=== PATIENT | female | born 1975 | race Caucasian/White ===

== ENCOUNTER 2016-06-29 15:08 | Emergency (ER) | payer OTHER ==
[~2016-06-29] VITALS: Ht 157.5 cm; Wt 95.4 kg
[2016-06-29 15:15] VITALS: TEMP 36.5; Ht 157.5 cm; Wt 95.4 kg
[2016-06-29] MEDS ORDERED: ONDANSETRON INJ 2 MG/ML 2 ML VIAL IV STA (15:35)
[2016-06-29] MEDS ORDERED: SODIUM CHLORIDE 0.9% 1000ML 1,000 ML IV STA (15:35)
[2016-06-29] MEDS ORDERED: MoRPHine SULFATE 10 MG/ML CARP/VIAL IV STA (15:35)
[2016-06-29] MEDS ORDERED: OPTIRAY 320 IV PRN (15:45)
[2016-06-29 15:53] LABS: BASO % 0.4 %; BASO ABS # 0.05 K/uL (0-0.2); COMPLETE YES; EOS % 1.5 %; HEMATOCRIT 42.3 % (37-47); IG% 0.2 %; LYMPH % 33.7 %; LYMPH ABS # 4.09 K/uL (1.2-3.4); MEAN CELL VOLUME 88.9 fL (80-100); MEAN CORPUSCULAR HEMOGLOBIN 30.5 pg (25-34); MEAN CORPUSCULAR HGB CONC 34.3 g/dl (32-36); MEAN PLATELET VOLUME 10.8 fL (7.4-10.4); MONO % 6.8 %; NEUT % 57.4 %; PLATELET COUNT 292 K/uL (130-400); RED BLOOD COUNT 4.76 M/uL (4.2-5.4); WHITE BLOOD COUNT 12.14 K/uL (4.8-10.8)
[2016-06-29 16:02] LABS: BUN/CREATININE RATIO 15.1 (10-20); CALCIUM 8.7 mg/dl (8.5-10.1); CREATININE 0.68 mg/dl (0.60-1.20); POTASSIUM 3.5 mmol/L (3.5-5.1)
[2016-06-29 16:04] LABS: ALB/GLOB RATIO 0.9 (0.9-2)
[2016-06-29] MEDS ORDERED: HYDROmorphone INJ 1 MG/ML SYR IV STA (16:30)
[2016-06-29] MEDS ORDERED: PROMETHAZINE HCL INJ 12.5 MG in SODIUM CHLORIDE 0.9% 50ML 50 ML IV STA (17:17)
[2016-06-29 18:56] LABS: URINE APPEARANCE CLOUDY (CLEAR); URINE BILIRUBIN NEG (NEG); URINE COLOR YELLOW; URINE EPITHELIAL CELL AUTO >30 /lpf (0-5); URINE NITRITE NEG (NEG); URINE SPECIFIC GRAVITY 1.021 (1.000-1.030); UROBILINOGEN NEG (NEG); ZZUR CULT IF INDIC CLEAN CATCH YES
[2016-06-29 18:57] LABS: MANUAL MICROSCOPIC REQUIRED? NO; REVIEW REQ? YES
--- NOTE | 2016-06-29 19:15 | DIAGNOSTIC IMAGING REPORT ---
ABDOMEN AND PELVIS CT WITH IV AND ORAL CONTRAST CT DOSE: 1007.82 mGy.cm HISTORY: Right lower quadrant abdominal pain and vomiting. TECHNIQUE: Multiaxial CT images of the abdomen and pelvis were performed following the use of intravenous and oral contrast. COMPARISON STUDY: Abdomen and pelvis CT 05/31/2016. FINDINGS: There are 2 subcentimeter nodules at the left lower lobe both measuring 4 mm. These demonstrate greater than 2 year stability and are considered to be benign. Patchy groundglass densities at the lung bases have improved and are likely a result of air trapping. No pneumoperitoneum. No pneumatosis. Trace pelvic free fluid is likely physiologic. Stable 1 cm hypodense lesion within the left hepatic lobe. This favors a cyst. The spleen and pancreas are unremarkable. No hydronephrosis. The left kidney enhances normally. Stable 9 mm hypodense lesion within the right kidney. This is too small to characterize. No retroperitoneal lymphadenopathy. Stable bilateral renal and nodules.. The right adrenal gland nodule measures 1.4 cm and the left adrenal gland nodule measures 1.9 cm. These demonstrate greater than 4 year stability and likely represent benign adenomas. Prior cholecystectomy. Small cystic focus at the gallbladder fossa. This measures 1.5 cm. This remains unchanged. The uterus, ovaries, and bladder are unremarkable. No bowel wall thickening or obstruction. Normal appendix. IMPRESSION: 1. No significant change compared to the prior study. 2. No bowel wall thickening or obstruction. 3. Normal appendix. 4. Prior cholecystectomy. Stable 1.5 cm cystic focus of the gallbladder fossa. This may represent a small postoperative seroma or biloma. Electronically signed by: Chapo Garsia M.D. 06/29/2016 7:13 PM Dictated Date/Time: 06/29/2016 7:02 PM
[2016-06-29 19:21] VITALS: BP 96/64; PULSE 69; O2SAT 100
[2016-06-29] MEDS ORDERED: ONDA4TAB10 SL (19:40)
--- NOTE | 2016-06-29 19:40 | EMERGENCY ROOM VISIT NOTE ---
History First contact with patient: 15:25 Chief Complaint: ABDOMINAL PAIN Stated Complaint: RIGHT SIDED BELLY PAINS Nursing Triage Summary: Pt reports "pain by my appendix" nausea, vomitting, and diarrhea. All symptoms began approx 1 week ago. Pt currently rates pain an 8/10. History of Present Illness The patient is a 40 year old female who presents to the Emergency Room with complaints of right lower quadrant abdominal pain which began one week ago. The patient reports that she has had severe abdominal pain which "doubles her over" gradually worsening over the past one week. The pain is worse with walking. She has had diarrhea since the onset of the pain. She developed vomiting yesterday. The patient is concerned because she feels the pain is in the area of her appendix. She rates the discomfort an 8.5/10. She's been taking Tylenol without relief. She denies any associated fevers/chills, urinary symptoms, vaginal discharge, hematochezia, chest pain or shortness of breath. She has a history of a prior cholecystectomy, but denies any other abdominal surgeries. Review of Systems A complete 10-point Review of Systems was discussed with the patient, with pertinent positives and negatives listed in the History of Present Illness. All remaining Review of Systems questions can be considered negative unless otherwise specified. Past Medical/Surgical History Medical Problems: (1) Acute bronchitis (2) Asthma (3) section (4) Migraines (5) MORBID OBESITY (6) Pneumonitis (7) Pulmonary nodule Family History Cancer Diabetes mellitus FHx: COPD (chronic obstructive pulmonary disease) Heart disease Hypertension Migraine Seizures Social History Smoking Status: Current Every Day Smoker Alcohol Use: none Drug Use: none Marital Status: single Housing Status: lives with family Occupation Status: disabled Current/Historical Medications Scheduled Ondasetron Odt (Zofran Odt), 4 MG SL Q6H Scheduled PRN Albuterol Hfa (Ventolin Hfa), 2 PUFFS INH Q4 PRN for Cough Albuterol Sulf (Proventil 0.083% 2.5MG/3ML), 2.5 MG INH QID PRN for SOB/Wheezing Allergies Coded Allergies: Aspirin (Verified Allergy, Mild, HIVES, 06/29/16) CAN TOLERATE ASA 81MG DOSE BUT DEVELOPED HIVES WITH ASA 325MG DOSE Physical Exam Vital Signs Date Time Temp Pulse Resp B/P Pulse Ox O2 Delivery O2 Flow Rate FiO2 06/29/16 19:21 69 16 96/64 100 Room Air 06/29/16 16:38 81 18 104/79 97 06/29/16 15:50 90 16 103/65 98 Room Air 06/29/16 15:15 36.5 80 16 111/80 100 Room Air Physical Exam VITALS: Vitals are noted on the nurse's note and reviewed by myself. Vital signs stable. GENERAL: This is a 40-year-old female, in no acute distress, nondiaphoretic, well-developed well-nourished. SKIN: Capillary reflex less than 2 seconds. HEART: Regular rate and rhythm without murmurs gallops or rubs. LUNGS: Clear to auscultation bilaterally without wheezes, rales or rhonchi. No retractions or accessory muscle use. ABDOMEN: Positive bowel sounds x 4. The abdomen is soft with moderate tenderness over the right lower quadrant. No guarding or rebound tenderness. NEURO: Patient was alert and oriented to person place and time. Medical Decision & Procedures ER Provider Diagnostic Interpretation: ABDOMEN AND PELVIS CT WITH IV AND ORAL CONTRAST FINDINGS: There are 2 subcentimeter nodules at the left lower lobe both measuring 4 mm. These demonstrate greater than 2 year stability and are considered to be benign. Patchy groundglass densities at the lung bases have improved and are likely a result of air trapping. No pneumoperitoneum. No pneumatosis. Trace pelvic free fluid is likely physiologic. Stable 1 cm hypodense lesion within the left hepatic lobe. This favors a cyst. The spleen and pancreas are unremarkable. No hydronephrosis. The left kidney enhances normally. Stable 9 mm hypodense lesion within the right kidney. This is too small to characterize. No retroperitoneal lymphadenopathy. Stable bilateral renal and nodules.. The right adrenal gland nodule measures 1.4 cm and the left adrenal gland nodule measures 1.9 cm. These demonstrate greater than 4 year stability and likely represent benign adenomas. Prior cholecystectomy. Small cystic focus at the gallbladder fossa. This measures 1.5 cm. This remains unchanged. The uterus, ovaries, and bladder are unremarkable. No bowel wall thickening or obstruction. Normal appendix. IMPRESSION: 1. No significant change compared to the prior study. 2. No bowel wall thickening or obstruction. 3. Normal appendix. 4. Prior cholecystectomy. Stable 1.5 cm cystic focus of the gallbladder fossa. This may represent a small postoperative seroma or biloma. Laboratory Results 06/29/16 15:25 Red Blood Count 4.76, Mean Corpuscular Volume 88.9, Mean Corpuscular Hemoglobin 30.5, Mean Corpuscular Hemoglobin Concent 34.3, Mean Platelet Volume 10.8, Neutrophils (%) (Auto) 57.4, Lymphocytes (%) (Auto) 33.7, Monocytes (%) (Auto) 6.8, Eosinophils (%) (Auto) 1.5, Basophils (%) (Auto) 0.4, Neutrophils # (Auto) 6.98, Lymphocytes # (Auto) 4.09, Monocytes # (Auto) 0.82, Eosinophils # (Auto) 0.18, Basophils # (Auto) 0.05 06/29/16 15:25 Test 06/29/16 15:25 06/29/16 18:36 White Blood Count 12.14 K/uL (4.8-10.8) Red Blood Count 4.76 M/uL (4.2-5.4) Hemoglobin 14.5 g/dL (12.0-16.0) Hematocrit 42.3 % (37-47) Mean Corpuscular Volume 88.9 fL (80-100) Mean Corpuscular Hemoglobin 30.5 pg (25-34) Mean Corpuscular Hemoglobin Concent 34.3 g/dl (32-36) Platelet Count 292 K/uL (130-400) Mean Platelet Volume 10.8 fL (7.4-10.4) Neutrophils (%) (Auto) 57.4 % Lymphocytes (%) (Auto) 33.7 % Monocytes (%) (Auto) 6.8 % Eosinophils (%) (Auto) 1.5 % Basophils (%) (Auto) 0.4 % Neutrophils # (Auto) 6.98 K/uL (1.4-6.5) Lymphocytes # (Auto) 4.09 K/uL (1.2-3.4) Monocytes # (Auto) 0.82 K/uL (0.11-0.59) Eosinophils # (Auto) 0.18 K/uL (0-0.5) Basophils # (Auto) 0.05 K/uL (0-0.2) RDW Standard Deviation 47.4 fL (36.4-46.3) RDW Coefficient of Variation 14.5 % (11.5-14.5) Immature Granulocyte % (Auto) 0.2 % Immature Granulocyte # (Auto) 0.02 K/uL (0.00-0.02) Anion Gap 9.0 mmol/L (3-11) Est Creatinine Clear Calc Drug Dose 120.8 ml/min Estimated GFR () 128.6 Estimated GFR (Non- 111.0 BUN/Creatinine Ratio 15.1 (10-20) Calcium Level 8.7 mg/dl (8.5-10.1) Total Bilirubin 0.4 mg/dl (0.2-1) Aspartate Amino Transf (AST/SGOT) 18 U/L (15-37) Alanine Aminotransferase (ALT/SGPT) 24 U/L (12-78) Alkaline Phosphatase 83 U/L (45-117) Total Protein 7.2 gm/dl (6.4-8.2) Albumin 3.4 gm/dl (3.4-5.0) Globulin 3.8 gm/dl (2.5-4.0) Albumin/Globulin Ratio 0.9 (0.9-2) Lipase 357 U/L (73-393) Urine Color YELLOW Urine Appearance CLOUDY (CLEAR) Urine pH 5.0 (4.5-7.5) Urine Specific Spangler 1.021 (1.000-1.030) Urine Protein NEG (NEG) Urine Glucose (UA) NEG (NEG) Urine Ketones NEG (NEG) Urine Occult Blood NEG (NEG) Urine Nitrite NEG (NEG) Urine Bilirubin NEG (NEG) Urine Urobilinogen NEG (NEG) Urine Leukocyte Esterase NEG (NEG) Urine WBC (Auto) 10-30 /hpf (0-5) Urine RBC (Auto) 0-4 /hpf (0-4) Urine Hyaline Casts (Auto) 5-10 /lpf (0-5) Urine Epithelial Cells (Auto) >30 /lpf (0-5) Urine Bacteria (Auto) 2+ (NEG) Urine Crystals CALCIUM OXALATE (NONE Urine Test NEG (NEG) Medications Administered Medications (Trade) Dose Ordered Sig/Chidi Route Start Time Stop Time Status Last Admin Dose Admin Sodium Chloride (Nss 1000ml) 1,000 ml @ 999 mls/hr Q1H1M STAT IV 06/29/16 15:35 06/29/16 16:35 DC 06/29/16 15:46 999 MLS/HR Ondansetron HCl (Zofran Inj) 4 mg NOW STAT IV 06/29/16 15:35 06/29/16 15:37 DC 06/29/16 15:45 4 MG Morphine Sulfate (MoRPHine SULFATE INJ) 6 mg NOW STAT IV 06/29/16 15:35 06/29/16 15:37 DC 06/29/16 15:45 6 MG Hydromorphone HCl 1 mg 1 mg NOW STAT IV 06/29/16 16:30 06/29/16 16:31 DC 06/29/16 16:36 1 MG Promethazine HCl/ Sodium Chloride (Phenergan Inj/ Nss 50ml) 50.5 ml @ 204 mls/hr NOW STAT IV 06/29/16 17:17 06/29/16 17:34 DC 06/29/16 17:17 204 MLS/HR Ondansetron HCl (ZOFRAN ODT 4MG Home Pack) 1 homepack UD ONCE PO 06/29/16 19:45 06/29/16 19:46 DC 06/29/16 19:54 1 HOMEPACK Medical Decision Differential diagnosis includes appendicitis, cholecystitis, colitis, gastroenteritis, musculoskeletal pain, renal calculus, ovarian cyst, ovarian torsion, among others. The patient was evaluated as above. Labs were drawn and IV access was obtained. Imaging studies were performed and read by radiology as above. The patient was medicated with 6 mg morphine IV, 4 mg Zofran IV and hydrated with 1 L normal saline solution. The patient did complain of continued pain and nausea and was then given 1 mg Dilaudid and 12.5 mg Phenergan IV. The patient was reassessed multiple times during their stay in the emergency department and remained in stable condition. The patient is a 40-year-old female who presents today complaining of right lower quadrant pain with associated diarrhea and vomiting. Labs revealed a mild leukocytosis consistent with vomiting or mild infection. There were no concerning in light show abnormalities. Urinalysis was suggestive of contamination versus infection and will be sent for culture. Urine was negative. CT of the abdomen and pelvis was read by radiology and showed no acute findings within the abdomen. CT was unchanged from a prior study. The patient was treated with multiple doses of antiemetics and narcotics. On reassessment, the patient did complain of subjective nausea and pain, but appeared to be comfortable and was drinking a Mountain Dew when I entered the room. I feel the patient may have a gastroenteritis. She will be discharged home with a prescription for Zofran and was instructed to follow-up with her primary care provider within the next few days. She will return sooner for any new/concerning symptoms. Based on the patient's presentation, lab results, and imaging studies, I feel the patient is stable for outpatient treatment. Discharge instructions were reviewed with the patient. The patient verbalized understanding of my assessment and treatment plan and was discharged home in good condition. Impression Primary Impression: Right lower quadrant abdominal pain Departure Information Dispostion Home / Self-Care Condition GOOD Prescriptions Ondasetron Odt (ZOFRAN ODT) 4 Mg Tab 4 MG SL Q6H for Nausea, #15 TAB Prov: Natasha Beltran PA-C 06/29/16 Referrals Jaime Jamison M.D. (PCP) Patient Instructions A Signature Page Additional Instructions You have been treated in the Emergency Department your Abdominal Pain. Laboratory results and imaging studies have ruled out any emergent causes for your abdominal pain which would warrant admission or surgery. You have been prescribed Zofran to be used for any nausea or vomiting. Take as prescribed. For pain control, you can use the following [id number] medicines (if >12 yo): - Regular strength (325mg/tab) Tylenol (acetaminophen) 2 tabs every 4-6 hours as needed. Do not exceed 12 tablets in a 24 hour period. Avoid taking more than 4 grams (4000 mg) of Tylenol per day. This includes any other sources of acetaminophen you may take on a regular basis. - Regular strength (200 mg/tab) Advil (ibuprofen) 1-2 tabs every 4-6 hours as needed. Do not exceed a dose of 3200 mg per day. Drink plenty of water and stay well hydrated. As with any trip to the Emergency Department, you should follow-up with your Primary Care Provider from today's visit. Return to the emergency department if your symptoms persist despite treatment plan outlined above or if the following symptoms occur: increased fevers, chills , worsening nausea/vomiting, blood in your stool or urine.
[2016-06-29] MEDS ORDERED: ONDANSETRON HOME PACK 4MG OD TAB PO ONE (19:45)
[2016-09-29] MEDS ORDERED: VNTHFA/IN INH (00:08)
[2016-09-29] MEDS ORDERED: ALBINS/ NEB (00:09)
[2016-11-21] MEDS ORDERED: HYDR-5688 PO (09:29)
[2016-12-12] MEDS ORDERED: HYDR-5688 PO ×2 (07:44→07:48)
== END 2016-06-29 19:57 | disposition home or self-care (01) ==
LOC: C.EDB 15:09
DX: R10.31 Right lower quadrant pain (principal); R11.10 Vomiting, unspecified; R19.7 Diarrhea, unspecified; F17.210 Nicotine dependence, cigarettes, uncomplicated; E66.01 Morbid (severe) obesity due to excess calories

== ENCOUNTER 2016-08-22 18:11 | Emergency (ER) | payer OTHER ==
[~2016-08-22] VITALS: Ht 165.1 cm; Wt 95.7 kg
[~2016-08-22 18:11] MED LIST: ONDA4TAB10 SL
[2016-08-22 18:31] VITALS: BP 129/83; TEMP 37.2; Ht 165.1 cm; Wt 95.7 kg
[2016-08-22] MEDS ORDERED: ZFRODT4HP SL (18:39)
--- NOTE | 2016-08-22 19:13 | DIAGNOSTIC IMAGING REPORT ---
LEFT THUMB 3 VIEWS CLINICAL HISTORY: Left thumb injury and pain. FINDINGS: 3 views of left thumb are compared to study dated 10/29/2013. The skeletal structures are well mineralized. No fracture is seen. The first metacarpophalangeal and interphalangeal joints are well-maintained. The overlying soft tissues are within normal limits. IMPRESSION: No acute bony abnormality is seen in the left thumb. Electronically signed by: Juan Jose Casarez M.D. 08/22/2016 7:12 PM Dictated Date/Time: 08/22/2016 7:10 PM
[2016-08-22 20:41] VITALS: PULSE 75; O2SAT 97
--- NOTE | 2016-08-22 23:13 | EMERGENCY ROOM VISIT NOTE ---
History First contact with patient: 18:50 Chief Complaint: FINGER PAIN Stated Complaint: INJURY TO LEFT THUMB History of Present Illness The patient is a 40 year old female who presents to the Emergency Room with complaints of an injury to her left thumb after hitting her thumb with a hammer. The patient also reports that she has had a lump on the top of her thumb since injuring it a few months ago. The patient is [id number], and rates her pain a 6 out of 10. She denies paresthesias or numbness of the left thumb. Review of Systems 10 system review was performed and was negative except for pertinent positives and negatives as indicated in history of present illness Past Medical/Surgical History Medical Problems: (1) Acute bronchitis (2) Asthma (3) section (4) Migraines (5) MORBID OBESITY (6) Pneumonitis (7) Pulmonary nodule Family History Cancer Diabetes mellitus FHx: COPD (chronic obstructive pulmonary disease) Heart disease Hypertension Migraine Seizures Social History Smoking Status: Current Every Day Smoker Alcohol Use: none Drug Use: none Marital Status: single Housing Status: lives with family Occupation Status: disabled Current/Historical Medications Scheduled PRN Albuterol Hfa (Ventolin Hfa), 2 PUFFS INH Q4 PRN for Cough Albuterol Sulf (Proventil 0.083% 2.5MG/3ML), 2.5 MG INH QID PRN for SOB/Wheezing Ondansetron (Ondansetron Odt), 1 TAB SL Q6 PRN for Nausea Allergies Coded Allergies: Aspirin (Verified Allergy, Mild, HIVES, 06/29/16) CAN TOLERATE ASA 81MG DOSE BUT DEVELOPED HIVES WITH ASA 325MG DOSE Physical Exam Vital Signs Date Time Temp Pulse Resp B/P Pulse Ox O2 Delivery O2 Flow Rate FiO2 08/22/16 20:41 75 18 97 Room Air 08/22/16 18:31 37.2 83 18 129/83 97 Room Air Physical Exam CONSTITUTIONAL: Healthy and well nourished. Alert and oriented X 3 with positive affect. She does not appear in any acute distress. HEENT: Normocephalic, atraumatic. Pupils equal, round and reactive. NECK: Full active range of motion without discomfort. MUSCULOSKELETAL: Examination of the left thumb does not show any obvious soft tissue edema, erythema, ecchymosis, abrasions or lacerations. She has general tenderness to palpation at the base of the thumb. The patient also has a pea- sized cystic structure at the dorsal IP joint. No surrounding erythema noted. Capillary refill is less than 2 seconds. INTEGUMENTARY: No rash or other significant dermatologic conditions noted. NEUROLOGIC: Left thumb is sensory intact. Medical Decision & Procedures ER Provider Diagnostic Interpretation: My interpretation of left thumb x-rays does not show any acute fractures or dislocations. Radiologist report is as follows: LEFT THUMB 3 VIEWS CLINICAL HISTORY: Left thumb injury and pain. FINDINGS: 3 views of left thumb are compared to study dated 10/29/2013. The skeletal structures are well mineralized. No fracture is seen. The first metacarpophalangeal and interphalangeal joints are well-maintained. The overlying soft tissues are within normal limits. IMPRESSION: No acute bony abnormality is seen in the left thumb. ED Course Patient history and physical exam were performed. Nurse's notes were reviewed. X-rays of the left thumb were normal. The patient was encouraged to intermittently apply ice to the thumb. Ibuprofen and Tylenol in alternating fashion if needed for additional pain relief. I did suggest that she follow-up with orthopedics for reevaluation as the patient reports that the cyst on her finger has been giving her problems. She was instructed to follow-up with her orthopedic surgeon for further management. The patient was happy with plan of care, and voiced understanding of all discharge instructions. Impression Primary Impression: Contusion of left thumb Additional Impression: Left thumb cyst Departure Information Referrals Jaime Jamison M.D. (PCP) Patient Instructions [facility] Problem Qualifiers
[2016-09-29] MEDS ORDERED: VNTHFA/IN INH (00:08)
[2016-09-29] MEDS ORDERED: ALBINS/ NEB (00:09)
[2016-11-21] MEDS ORDERED: HYDR-5688 PO (09:29)
[2016-12-12] MEDS ORDERED: HYDR-5688 PO ×2 (07:44→07:48)
== END 2016-08-22 20:42 | disposition home or self-care (01) ==
LOC: C.EDB 18:12 → C.EDD 20:42
DX: S60.012A Contusion of left thumb without damage to nail, initial encounter (principal); W27.8XXA Contact with other nonpowered hand tool, initial encounter; L72.9 Follicular cyst of the skin and subcutaneous tissue, unspecified; J45.909 Unspecified asthma, uncomplicated; E66.01 Morbid (severe) obesity due to excess calories; F17.200 Nicotine dependence, unspecified, uncomplicated; Z87.01 Personal history of pneumonia (recurrent); Z98.891 History of uterine scar from previous surgery; Z83.3 Family history of diabetes mellitus; Z82.5 Family history of asthma and other chronic lower respiratory diseases; Z82.49 Family history of ischemic heart disease and other diseases of the circulatory system; Z82.0 Family history of epilepsy and other diseases of the nervous system

== ENCOUNTER → 2016-09-13 | Outpatient (CLI) | payer OTHER ==
[~2016-09-13] MED LIST changes: +ACET-1256 PO; +ALBINS/ INH; +ALBINS/ NEB; +ALBU18002 INH; +AZITTAB PO; +HYDR-5688 PO; -ONDA4TAB10 SL; +PLMINSR5 INH; +VNTHFA/IN INH; +ZFRODT4HP SL
--- NOTE | 2016-09-13 14:55 | DIAGNOSTIC IMAGING REPORT ---
LEFT THUMB 3 VIEWS CLINICAL HISTORY: Left thumb pain COMPARISON: 09-06 DISCUSSION: No fractures or dislocations are visualized. There are no erosive or destructive changes. There is no evidence for soft tissue swelling. IMPRESSION: No bony abnormalities identified. Electronically signed by: Kapil Hess M.D. 09/13/2016 2:53 PM Dictated Date/Time: 09/13/2016 2:52 PM
== END | disposition home or self-care (01) ==
LOC: C.RDSM 14:10
PROVIDERS: ATTEND Physician Assistant
DX: M79.645 Pain in left finger(s) (principal)

== ENCOUNTER 2016-09-22 18:27 | Emergency (ER) | payer OTHER ==
[~2016-09-22] VITALS: Ht 165.1 cm; Wt 97.1 kg
[~2016-09-22 18:27] MED LIST changes: -ACET-1256 PO; -ALBINS/ INH; -ALBINS/ NEB; -ALBU18002 INH; -AZITTAB PO; -HYDR-5688 PO; -PLMINSR5 INH; -VNTHFA/IN INH
[2016-09-22 18:35] VITALS: O2SAT 99; Ht 165.1 cm; Wt 97.1 kg
--- NOTE | 2016-09-22 18:41 | EMERGENCY ROOM VISIT NOTE ---
History Report prepared by Mabel: Manolo Davidson Under the Supervision of: Dr. Manolo Wei M.D. First contact with patient: 18:30 Chief Complaint: CHEST PAIN Stated Complaint: CHEST PAIN History of Present Illness The patient is a 40 year old female who presents to the Emergency Room with complaints of intermittent chest pain beginning earlier today. She notes she was walking earlier today with her daughter, and 30 minutes into the walk she developed intermittent chest pain. She went home and took Aspirin which worsened her pain. The patient adds having some dizziness upon standing, but denies having any fevers, shortness of breath, or trauma, and denies any history of heart issues. The patient denies feeling anxious. She has been drinking plenty of fluids recently. She denies any chance of . Source of History: patient Onset: earlier today Position: chest Quality: other (chest pain) Timing: intermittent Associated Symptoms: No SOB, No fevers Note: The patient reports dizziness upon standing. Review of Systems See HPI for pertinent positives & negatives. A total of 10 systems reviewed and were otherwise negative. Past Medical & Surgical Medical Problems: (1) No Known Active Medical Problems Old medical records were reviewed. Nurse's notes were reviewed and I agree with. Family History No pertinent family history stated. Social History Drug Use: none Marital Status: Housing Status: lives with family Current/Historical Medications Scheduled PRN Albuterol Sulfate (Proair Respiclick), 2 PUFFS INH QID PRN for SOB/Wheezing Budesonide (Pulmicort Respules 0.5MG/2ML), 1 VIAL INH Q4 PRN for Wheezing Allergies Coded Allergies: No Known Allergies (Unverified , 09/22/16) Physical Exam Vital Signs Date Time Temp Pulse Resp B/P Pulse Ox O2 Delivery O2 Flow Rate FiO2 09/22/16 19:49 88 19 120/68 98 Room Air 09/22/16 19:11 79 09/22/16 18:35 99 Room Air 09/22/16 18:35 36.8 77 16 122/83 100 Room Air 09/22/16 18:35 99 Room Air Physical Exam General: Non ill-appearing young female in no acute distress. HEENT: Normal cephalic atraumatic. Pupils are equal round and reactive to light. Sclerae anicteric. Extraocular movements are intact. Oropharynx is pink with moist mucous membranes. No swelling of the mouth lips or tongue. Neck: Supple with a midline trachea. No meningeal signs or stiffness, no JVD or bruits. No Stridor. Chest: Clear to auscultation bilaterally. No wheezes or rhonchi. No increased work of breathing. Heart: regular rate and rhythm. Abdomen: Soft nontender, nondistended without rebound guarding or rigidity. Extremities: No cyanosis clubbing or edema. No calf tenderness or assymetry Spine/Back. Non tender to palpation. No CVA tenderness Skin: Good turgor without rashes. Neurologic exam: Cranial nerves two through 12 are intact. Motor and sensation are intact and symmetrical throughout. Medical Decision & Procedures ER Provider Diagnostic Interpretation: Radiology results as stated below per my review and radiologist interpretation: CHEST ONE VIEW PORTABLE FINDINGS: The cardiac and mediastinal contours are normal. There is no evidence of focal pulmonary consolidation. There is no evidence of failure. No pleural effusions are visualized. IMPRESSION: No active disease in the chest. Electronically signed by: Kapil Hess M.D. 09/22/2016 7:01 PM Dictated Date/Time: 09/22/2016 7:00 PM Laboratory Results 09/22/16 18:30 Red Blood Count 4.72, Mean Corpuscular Volume 89.2, Mean Corpuscular Hemoglobin 29.9, Mean Corpuscular Hemoglobin Concent 33.5, Mean Platelet Volume 10.9, Neutrophils (%) (Auto) 60.3, Lymphocytes (%) (Auto) 31.0, Monocytes (%) (Auto) 5.9, Eosinophils (%) (Auto) 2.2, Basophils (%) (Auto) 0.5, Neutrophils # (Auto) 5.53, Lymphocytes # (Auto) 2.85, Monocytes # (Auto) 0.54, Eosinophils # (Auto) 0.20, Basophils # (Auto) 0.05 09/22/16 18:30 Test 09/22/16 18:30 09/22/16 18:45 White Blood Count 9.18 K/uL (4.8-10.8) Red Blood Count 4.72 M/uL (4.2-5.4) Hemoglobin 14.1 g/dL (12.0-16.0) Hematocrit 42.1 % (37-47) Mean Corpuscular Volume 89.2 fL (80-100) Mean Corpuscular Hemoglobin 29.9 pg (25-34) Mean Corpuscular Hemoglobin Concent 33.5 g/dl (32-36) Platelet Count 216 K/uL (130-400) Mean Platelet Volume 10.9 fL (7.4-10.4) Neutrophils (%) (Auto) 60.3 % Lymphocytes (%) (Auto) 31.0 % Monocytes (%) (Auto) 5.9 % Eosinophils (%) (Auto) 2.2 % Basophils (%) (Auto) 0.5 % Neutrophils # (Auto) 5.53 K/uL (1.4-6.5) Lymphocytes # (Auto) 2.85 K/uL (1.2-3.4) Monocytes # (Auto) 0.54 K/uL (0.11-0.59) Eosinophils # (Auto) 0.20 K/uL (0-0.5) Basophils # (Auto) 0.05 K/uL (0-0.2) RDW Standard Deviation 48.5 fL (36.4-46.3) RDW Coefficient of Variation 14.8 % (11.5-14.5) Immature Granulocyte % (Auto) 0.1 % Immature Granulocyte # (Auto) 0.01 K/uL (0.00-0.02) Anion Gap 9.0 mmol/L (3-11) Est Creatinine Clear Calc Drug Dose 129.3 ml/min Estimated GFR () 128.6 Estimated GFR (Non- 111.0 BUN/Creatinine Ratio 17.5 (10-20) Calcium Level 9.0 mg/dl (8.5-10.1) Total Bilirubin 0.2 mg/dl (0.2-1) Direct Bilirubin < 0.1 mg/dl (0-0.2) Aspartate Amino Transf (AST/SGOT) 10 U/L (15-37) Alanine Aminotransferase (ALT/SGPT) 19 U/L (12-78) Alkaline Phosphatase 87 U/L (45-117) Total Protein 7.7 gm/dl (6.4-8.2) Albumin 3.6 gm/dl (3.4-5.0) Lipase 143 U/L (73-393) Human Chorionic Gonadotropin, Qual NEG (NEG) Bedside Troponin I 0.000 ng/ml (0-0.045) Laboratory studies as stated above per my review. Medications Administered Medications (Trade) Dose Ordered Sig/Chidi Route Start Time Stop Time Status Last Admin Dose Admin Morphine Sulfate (MoRPHine SULFATE INJ) 4 mg NOW STAT IV 09/22/16 19:32 09/22/16 19:33 DC 09/22/16 19:46 4 MG Ondansetron HCl (Zofran Inj) 4 mg NOW STAT IV 09/22/16 19:32 09/22/16 19:33 DC 09/22/16 19:45 4 MG ECG Indication: chest pain Rate (beats per minute): 76 Rhythm: normal sinus Findings: no acute ischemic change, no ectopy Comparison ECG Date: May 31, 2016 Change: no significant change ED Course 1831: Past medical records reviewed. The patient was evaluated in room C6, and a complete history and physical examination were performed. 1929: I reassessed the patient and she still is having some pain. 1931: Ordered Zofran Inj 4 mg IV, and Morphine Sulfate 4 mg IV. 1999: I reassessed the patient. She is feeling better and talking on the phone. 2009: Upon reevaluation, the patient is doing well. I discussed the results and treatment plan with the patient. She verbalized agreement of the treatment plan. The patient was discharged home. Medical Decision Differentials include anxiety, acute coronary syndrome, pneumothorax, musculoskeletal pain, and PE. This patient comes in as described above. She's having chest pain. I've seen her before for similar type symptoms. She does have a long history of noncardiac chest pain. EKG was obtained and shows no acute ischemic changes or ectopy. IV access had been established, blood work was obtained, chest x-ray was obtained and does not show anything to suggest congestive heart failure, pneumonia, or pneumothorax. She is not . She's had no acute electrolyte or metabolic abnormalities. Her cardiac enzymes are within normal limits. She was given morphine 4 mg IV and Zofran 4 mg IV and when I rechecked her, she is resting comfortably talk on the telephone. She is feeling better and up to going home. This could be musculoskeletal or anxiety related and has nothing to suggest PE. She's had no shortness breath or pleurisy. She was encouraged to return if: increasing pain, worsening of symptoms, fever or chills , any new problems or concerns. Follow-up with her doctor in 1-2 days for recheck. Impression Primary Impression: Precordial chest pain Scribe Attestation The scribe's documentation has been prepared under my direction and personally reviewed by me in its entirety. I confirm that the note above accurately reflects all work, treatment, procedures, and medical decision making performed by me. Departure Information Dispostion Home / Self-Care Patient Instructions My [facility] Additional Instructions Rest. Drink plenty of fluids. Return if: Increasing pain, worsening of symptoms, shortness of breath, any new problems concerns. Follow-up with your doctor in 1-2 days for recheck. Return to ER if symptoms worsen
[2016-09-22 18:54] LABS: BASO % 0.5 %; BASO ABS # 0.05 K/uL (0-0.2); COMPLETE YES; EOS % 2.2 %; HEMATOCRIT 42.1 % (37-47); IG% 0.1 %; LYMPH ABS # 2.85 K/uL (1.2-3.4); MEAN CELL VOLUME 89.2 fL (80-100); MEAN CORPUSCULAR HEMOGLOBIN 29.9 pg (25-34); MEAN CORPUSCULAR HGB CONC 33.5 g/dl (32-36); MEAN PLATELET VOLUME 10.9 fL (7.4-10.4); MONO % 5.9 %; NEUT % 60.3 %; PLATELET COUNT 216 K/uL (130-400); RED BLOOD COUNT 4.72 M/uL (4.2-5.4); WHITE BLOOD COUNT 9.18 K/uL (4.8-10.8)
[2016-09-22] MEDS ORDERED: ALBU18002 INH (18:57)
[2016-09-22] MEDS ORDERED: PLMINSR5 INH (18:57)
--- NOTE | 2016-09-22 19:02 | DIAGNOSTIC IMAGING REPORT ---
CHEST ONE VIEW PORTABLE CLINICAL HISTORY: Atypical chest pain COMPARISON STUDY: No previous studies for comparison. FINDINGS: The cardiac and mediastinal contours are normal. There is no evidence of focal pulmonary consolidation. There is no evidence of failure. No pleural effusions are visualized.[ IMPRESSION: No active disease in the chest. Electronically signed by: Kapil Hess M.D. 09/22/2016 7:01 PM Dictated Date/Time: 09/22/2016 7:00 PM
[2016-09-22 19:13] LABS: ALT/SGPT 19 U/L (12-78); AST/SGOT 10 U/L (15-37); BLOOD UREA NITROGEN 12 mg/dl (7-18); BUN/CREATININE RATIO 17.5 (10-20); CARBON DIOXIDE 25 mmol/L (21-32); CHLORIDE 109 mmol/L (98-107); CREATININE 0.68 mg/dl (0.60-1.20); GLUCOSE 87 mg/dl (70-99); SODIUM 143 mmol/L (136-145)
[2016-09-22 19:14] LABS: PREG INTERNAL NEGATIVE QC NEG CLEAR BACKGROUND; PREG INTERNAL POSITIVE QC POS CONTROL LINE
[2016-09-22 19:16] LABS: ALKALINE PHOSPHATASE 87 U/L (45-117)
[2016-09-22] MEDS ORDERED: MoRPHine SULFATE 4 MG/ML 1 ML CARP\\VIAL IV STA (19:32)
[2016-09-22] MEDS ORDERED: ONDANSETRON INJ 2 MG/ML 2 ML VIAL IV STA (19:32)
[2016-09-22 20:19] VITALS: BP 120/68; PULSE 88; TEMP 36.8; O2SAT 98
[2016-09-29] MEDS ORDERED: VNTHFA/IN INH (00:08)
[2016-09-29] MEDS ORDERED: ALBINS/ NEB (00:09)
[2016-11-21] MEDS ORDERED: HYDR-5688 PO (09:29)
[2016-12-12] MEDS ORDERED: HYDR-5688 PO ×2 (07:44→07:48)
== END 2016-09-22 20:10 | disposition home or self-care (01) ==
LOC: MERGE 18:31 → C.EDC 18:31
DX: R07.2 Precordial pain (principal)

== ENCOUNTER 2016-09-29 15:19 | Emergency (ER) | payer OTHER ==
[~2016-09-29] VITALS: Ht 165.1 cm; Wt 96.4 kg
[~2016-09-29 15:19] MED LIST changes: +ALBINS/ NEB; +ALBU18002 INH; +PLMINSR5 INH; +VNTHFA/IN INH
[2016-09-29 15:27] VITALS: Ht 165.1 cm; Wt 96.4 kg
[2016-09-29 15:30] VITALS: O2SAT 100
[2016-09-29] MEDS ORDERED: SODIUM CHLORIDE 0.9% 1000ML 1,000 ML IV ONE (16:01)
[2016-09-29] MEDS ORDERED: ONDANSETRON INJ 2 MG/ML 2 ML VIAL IV STA (16:01)
[2016-09-29] MEDS ORDERED: SODIUM CHLORIDE 0.9% 1000ML 1,000 ML IV STA (16:01)
[2016-09-29] MEDS ORDERED: HYDROmorphone INJ 1 MG/ML SYR IV STA (16:01)
--- NOTE | 2016-09-29 16:07 | EMERGENCY ROOM VISIT NOTE ---
History Report prepared by Mabel: Terra Matamoros Under the Supervision of: Dr. Manolo Wei M.D. First contact with patient: 15:23 Chief Complaint: ABDOMINAL PAIN Stated Complaint: NAUSEA, VOMITING, DIARRHEA, AB PAIN Nursing Triage Summary: Patient presents with c/o abdominal pain, nausea, vomiting and diarrhea for the last 3 days states that the abdominal pain is right sided and wraps around her right side Patient is tender with palpation to right upper and lower quadrants, negative CVA pain History of Present Illness The patient is a 40 year old female who presents to the Emergency Room with complaints of worsening RLQ abdominal pain for the past week. Initially her pain was intermittent. It would last for about 45 minutes and occurred every 2- 3 hours. This morning her pain has been constant since she woke up. She describes her pain as stabbing and rates it as a 10/10 in severity. The patient states, "I feel like I'm dying." Her pain radiates into her right lower back but does not radiate anywhere else. Movement and palpation exacerbate her pain. It is not worse with walking or urination. The patient has also been experiencing nausea and vomiting. She vomited 3 times yesterday and 5 times today. Today she had diarrhea and increased urinary frequency. The patient denies fevers, chills, flank pain, dysuria, hematuria, melena, hematochezia, chest pain, shortness of breath, cough, and recent antibiotic usage. She denies any recent travel or sick contacts. She denies any personal history of kidney stones. She has not taken any medication for her symptoms. Her LNMP ended 2 days ago. She is . Source of History: patient Onset: 1 week ago Position: abdomen (RLQ) Symptom Intensity: 10/10 Quality: stabbing Timing: worsening Modifying Factors (Worsening): movement, other (palpation) Associated Symptoms: + back pain, + diarrhea, + nausea, + urinary symptoms ( pt reports increased frequency), + vomiting, No SOB, No chest pain, No chills, No cough, No fevers, No hematochezia, No melena Note: The patient denies flank pain, dysuria, hematuria, and recent antibiotic usage. She denies any recent travel or sick contacts. She denies any personal history of kidney stones. Review of Systems See HPI for pertinent positives & negatives. A total of 10 systems reviewed and were otherwise negative. Past Medical & Surgical Medical Problems: (1) Acute bronchitis (2) Asthma (3) section (4) Migraines (5) MORBID OBESITY (6) No Known Active Medical Problems (7) Pneumonitis (8) Pulmonary nodule Old medical records were reviewed. Nurse's notes were reviewed and I agree with. Family History Cancer Diabetes mellitus FHx: COPD (chronic obstructive pulmonary disease) Heart disease Hypertension Migraine Seizures Social History Smoking Status: Unknown if Ever Smoked Alcohol Use: none Drug Use: none Marital Status: Housing Status: lives with family Occupation Status: disabled Current/Historical Medications Scheduled PRN Albuterol Hfa (Ventolin Hfa), 2 PUFFS INH Q4H PRN for Wheezing Albuterol Sulf (Proventil 0.083% 2.5MG/3ML), 2.5 MG NEB QID PRN for SOB/Wheezing Allergies Coded Allergies: Aspirin (Verified Allergy, Mild, HIVES, 06/29/16) CAN TOLERATE ASA 81MG DOSE BUT DEVELOPED HIVES WITH ASA 325MG DOSE Physical Exam Vital Signs Date Time Temp Pulse Resp B/P Pulse Ox O2 Delivery O2 Flow Rate FiO2 09/29/16 18:14 36.7 65 17 102/68 100 09/29/16 17:50 65 17 102/68 100 Room Air 09/29/16 17:41 70 12 90/71 96 Room Air 09/29/16 17:06 74 16 83/53 99 Room Air 09/29/16 16:09 76 09/29/16 15:30 100 Room Air 09/29/16 15:27 36.7 86 20 129/77 100 Room Air Physical Exam General: Well developed well nourished non-ill appearing young female in no acute distress, breathing comfortably on room air. Normal speech HEENT: Normal cephalic atraumatic. Pupils are equal round and reactive to light. Sclerae anicteric. Extraocular movements are intact. Oropharynx is pink with moist mucous membranes. No swelling of the mouth lips or tongue. Neck: Supple with a midline trachea. No meningeal signs or stiffness, no JVD or bruits. No Stridor. Chest: Clear to auscultation bilaterally. No wheezes or rhonchi. No increased work of breathing. Heart: regular rate and rhythm. Abdomen: Soft, moderately tender in the RLQ, nondistended without rebound guarding or rigidity. Extremities: No cyanosis clubbing or edema. No calf tenderness or assymetry Spine/Back. Non tender to palpation. No CVA tenderness Skin: Good turgor without rashes. Neurologic exam: Cranial nerves two through 12 are intact. Motor and sensation are intact and symmetrical throughout. Medical Decision & Procedures ER Provider Diagnostic Interpretation: Radiology results as stated below per my review and radiologist interpretation: ABDOMEN AND PELVIS CT WITHOUT CONTRAST CT DOSE: 1783.34 mGy.cm HISTORY: Right flank pain. Nausea. Vomiting. eval for appy, stone TECHNIQUE: Multiaxial CT images of the abdomen and pelvis were performed without the use of intravenous and oral contrast according to the standard department stone protocol. COMPARISON STUDY: Abdomen and pelvis CT 06/29/2016. FINDINGS: Stable 4 mm indeterminate pulmonary nodules within the left lower lobe. The right lung base is clear. No fractures within the visualized osseous structures. Cholecystectomy. Stable 9 mm hypodense lesion within the left hepatic lobe. This is too small to characterize. The unenhanced spleen and pancreas are unremarkable. Bilateral adrenal gland nodules remain unchanged. Dominant nodule within the left adrenal gland measures 1.8 cm. These are consistent with benign adenomas. No renal stones or hydronephrosis. No ureteral or bladder stones. The bladder is unremarkable. The uterus and left ovary within normal limits. There is a 1.4 cm hypodense lesion within the right ovary which likely represents a cyst. Minimal pelvic free fluid which is likely physiologic. Suboptimal evaluation for bowel pathology due to the lack of intravenous and oral contrast. However, there is no definite bowel wall thickening or obstruction. A few colonic diverticula. Normal appendix. IMPRESSION: 1. No renal stones or hydronephrosis. 2. Normal appendix. 3. No definite bowel wall thickening or obstruction. 4. Subcentimeter indeterminate pulmonary nodules within the left lower lobe with the largest measuring 4 mm. Please refer to the chart below for recommended follow-up. 5. Stable benign adrenal adenomas. 6. Colonic diverticulosis. Electronically signed by: Chapo Garsia M.D. 09/29/2016 5:01 PM Dictated Date/Time: 09/29/2016 4:51 PM Laboratory Results 09/29/16 15:40 Red Blood Count 4.26, Mean Corpuscular Volume 89.4, Mean Corpuscular Hemoglobin 30.5, Mean Corpuscular Hemoglobin Concent 34.1, Mean Platelet Volume 10.8, Neutrophils (%) (Auto) 58.3, Lymphocytes (%) (Auto) 32.5, Monocytes (%) (Auto) 6.1, Eosinophils (%) (Auto) 2.4, Basophils (%) (Auto) 0.7, Neutrophils # (Auto) 4.28, Lymphocytes # (Auto) 2.39, Monocytes # (Auto) 0.45, Eosinophils # (Auto) 0.18, Basophils # (Auto) 0.05 09/29/16 15:40 Test 09/29/16 15:40 09/29/16 16:15 White Blood Count 7.35 K/uL (4.8-10.8) Red Blood Count 4.26 M/uL (4.2-5.4) Hemoglobin 13.0 g/dL (12.0-16.0) Hematocrit 38.1 % (37-47) Mean Corpuscular Volume 89.4 fL (80-100) Mean Corpuscular Hemoglobin 30.5 pg (25-34) Mean Corpuscular Hemoglobin Concent 34.1 g/dl (32-36) Platelet Count 198 K/uL (130-400) Mean Platelet Volume 10.8 fL (7.4-10.4) Neutrophils (%) (Auto) 58.3 % Lymphocytes (%) (Auto) 32.5 % Monocytes (%) (Auto) 6.1 % Eosinophils (%) (Auto) 2.4 % Basophils (%) (Auto) 0.7 % Neutrophils # (Auto) 4.28 K/uL (1.4-6.5) Lymphocytes # (Auto) 2.39 K/uL (1.2-3.4) Monocytes # (Auto) 0.45 K/uL (0.11-0.59) Eosinophils # (Auto) 0.18 K/uL (0-0.5) Basophils # (Auto) 0.05 K/uL (0-0.2) RDW Standard Deviation 48.8 fL (36.4-46.3) RDW Coefficient of Variation 14.8 % (11.5-14.5) Immature Granulocyte % (Auto) 0.0 % Immature Granulocyte # (Auto) 0.00 K/uL (0.00-0.02) Anion Gap 8.0 mmol/L (3-11) Est Creatinine Clear Calc Drug Dose 148.5 ml/min Estimated GFR () 134.8 Estimated GFR (Non- 116.3 BUN/Creatinine Ratio 12.6 (10-20) Calcium Level 8.5 mg/dl (8.5-10.1) Total Bilirubin 0.3 mg/dl (0.2-1) Direct Bilirubin < 0.1 mg/dl (0-0.2) Aspartate Amino Transf (AST/SGOT) 9 U/L (15-37) Alanine Aminotransferase (ALT/SGPT) 20 U/L (12-78) Alkaline Phosphatase 88 U/L (45-117) Total Protein 6.8 gm/dl (6.4-8.2) Albumin 3.3 gm/dl (3.4-5.0) Lipase 296 U/L (73-393) Urine Color YELLOW Urine Appearance CLEAR (CLEAR) Urine pH 6.5 (4.5-7.5) Urine Specific [place] 1.020 (1.000-1.030) Urine Protein NEG (NEG) Urine Glucose (UA) NEG (NEG) Urine Ketones NEG (NEG) Urine Occult Blood NEG (NEG) Urine Nitrite NEG (NEG) Urine Bilirubin NEG (NEG) Urine Urobilinogen NEG (NEG) Urine Leukocyte Esterase NEG (NEG) Urine Test NEG (NEG) Laboratory studies as stated above per my review. Medications Administered Medications (Trade) Dose Ordered Sig/Chidi Route Start Time Stop Time Status Last Admin Dose Admin Sodium Chloride 1,000 ml @ 999 mls/hr Q1H1M STAT IV 09/29/16 16:01 09/29/16 17:01 DC 09/29/16 16:09 999 MLS/HR Sodium Chloride (Nss 1000ml) 1,000 ml @ 150 mls/hr Q6H40M ONCE IV 09/29/16 16:09/29/16 18:41 DC 09/29/16 17:10 150 MLS/HR Ondansetron HCl (Zofran Inj) 4 mg NOW STAT IV 09/29/16 16:01 09/29/16 16:04 DC 09/29/16 16:09 4 MG Hydromorphone HCl (Dilaudid Inj) 1 mg NOW STAT IV 09/29/16 16:01 09/29/16 16:04 DC 09/29/16 16:09 1 MG ED Course 1523: Past medical records reviewed. The patient was evaluated in room C11B, and a complete history and physical examination were performed. 1601: Dilaudid 1 mg IV, Zofran 4 mg IV, NSS 1000 ml @ 150 mls/hr IV, NSS 1000 ml @ 999 mls/hr IV 1711: I updated the patient. She is still complaining of mild pain. I discussed the results and treatment plan with the patient. I answered all pertaining questions that she had. She expressed understanding and verbalized agreement. The patient will be discharged home. Medical Decision Differential diagnoses includes electrolyte or metabolic abnormality, appendicitis, ovarian cyst, , kidney stone, UTI. This patient comes in as described above. She was placed in room C11. She has had a right lower quadrant pain on exam she has moderate tenderness but no peritoneal signs. IV access established was hydrated with IV normal saline. She was given Dilaudid 1 mg IV and Zofran 4 mg IV for pain and nausea management. White count is not significantly elevated. She is not . She has no significant electrolyte or metabolic abnormalities. Urinalysis does not suggest a UTI with a culture pending. CAT scan was unremarkable. I did explain the risks and the benefits prior to obtaining the CAT scan that she's had multiple CAT scans in her past. No evidence of appendicitis or obstructive uropathy or any other acute intra-abdominal process seen. She did get mildly hypotensive after receiving the pain medication but this quickly came up with time and a little bit of fluid . she feels good and is asking a home, I will discharge her home. She will rest and drink plenty fluids. Return if: Worsening of symptoms, not tolerating fluids, any new problems or concerns. She was happy with plan and discharged to home. Impression Primary Impression: RLQ abdominal pain Scribe Attestation The scribe's documentation has been prepared under my direction and personally reviewed by me in its entirety. I confirm that the note above accurately reflects all work, treatment, procedures, and medical decision making performed by me. Departure Information Dispostion Home / Self-Care Referrals Jaime Jamison M.D. (PCP) Forms Call Back Authorization, HOME CARE DOCUMENTATION FORM, IMPORTANT VISIT INFORMATION Patient Instructions My [facility] Additional Instructions Rest. Drink plenty of fluids. Return if: Increasing pain, worsening of symptoms, fever or chills, any new problems or concerns. Follow-up with your doctor in 1-2 days for recheck
[2016-09-29 16:09] LABS: BASO % 0.7 %; BASO ABS # 0.05 K/uL (0-0.2); COMPLETE YES; EOS % 2.4 %; HEMATOCRIT 38.1 % (37-47); LYMPH % 32.5 %; LYMPH ABS # 2.39 K/uL (1.2-3.4); MEAN CELL VOLUME 89.4 fL (80-100); MEAN CORPUSCULAR HEMOGLOBIN 30.5 pg (25-34); MEAN CORPUSCULAR HGB CONC 34.1 g/dl (32-36); MEAN PLATELET VOLUME 10.8 fL (7.4-10.4); MONO % 6.1 %; NEUT % 58.3 %; PLATELET COUNT 198 K/uL (130-400); RED BLOOD COUNT 4.26 M/uL (4.2-5.4); WHITE BLOOD COUNT 7.35 K/uL (4.8-10.8)
[2016-09-29 16:27] LABS: ALT/SGPT 20 U/L (12-78); BLOOD UREA NITROGEN 7 mg/dl (7-18); BUN/CREATININE RATIO 12.6 (10-20); CALCIUM 8.5 mg/dl (8.5-10.1); CARBON DIOXIDE 27 mmol/L (21-32); CHLORIDE 107 mmol/L (98-107); CREATININE 0.59 mg/dl (0.60-1.20); GLUCOSE 91 mg/dl (70-99); POTASSIUM 3.9 mmol/L (3.5-5.1); SODIUM 142 mmol/L (136-145)
[2016-09-29 16:30] LABS: ALKALINE PHOSPHATASE 88 U/L (45-117); AST/SGOT 9 U/L (15-37)
--- NOTE | 2016-09-29 17:03 | DIAGNOSTIC IMAGING REPORT ---
ABDOMEN AND PELVIS CT WITHOUT CONTRAST CT DOSE: 1783.34 mGy.cm HISTORY: Right flank pain. Nausea. Vomiting. eval for appy, stone TECHNIQUE: Multiaxial CT images of the abdomen and pelvis were performed without the use of intravenous and oral contrast according to the standard department stone protocol. COMPARISON STUDY: Abdomen and pelvis CT 06/29/2016. FINDINGS: Stable 4 mm indeterminate pulmonary nodules within the left lower lobe. The right lung base is clear. No fractures within the visualized osseous structures. Cholecystectomy. Stable 9 mm hypodense lesion within the left hepatic lobe. This is too small to characterize. The unenhanced spleen and pancreas are unremarkable. Bilateral adrenal gland nodules remain unchanged. Dominant nodule within the left adrenal gland measures 1.8 cm. These are consistent with benign adenomas. No renal stones or hydronephrosis. No ureteral or bladder stones. The bladder is unremarkable. The uterus and left ovary within normal limits. There is a 1.4 cm hypodense lesion within the right ovary which likely represents a cyst. Minimal pelvic free fluid which is likely physiologic. Suboptimal evaluation for bowel pathology due to the lack of intravenous and oral contrast. However, there is no definite bowel wall thickening or obstruction. A few colonic diverticula. Normal appendix. IMPRESSION: 1. No renal stones or hydronephrosis. 2. Normal appendix. 3. No definite bowel wall thickening or obstruction. 4. Subcentimeter indeterminate pulmonary nodules within the left lower lobe with the largest measuring 4 mm. Please refer to the chart below for recommended follow-up. 5. Stable benign adrenal adenomas. 6. Colonic diverticulosis. Electronically signed by: Chapo Garsia M.D. 09/29/2016 5:01 PM Dictated Date/Time: 09/29/2016 4:51 PM
[2016-09-29 18:14] VITALS: BP 102/68; PULSE 65; TEMP 36.7; O2SAT 100
[2016-09-29 18:42] LABS: URINE APPEARANCE CLEAR (CLEAR); URINE BILIRUBIN NEG (NEG); URINE COLOR YELLOW; URINE NITRITE NEG (NEG); URINE PH 6.5 (4.5-7.5); UROBILINOGEN NEG (NEG)
[2016-09-29 19:11] LABS: MANUAL MICROSCOPIC REQUIRED? NO; REVIEW REQ? NO
[2016-11-21] MEDS ORDERED: HYDR-5688 PO (09:29)
[2016-12-12] MEDS ORDERED: HYDR-5688 PO ×2 (07:44→07:48)
== END 2016-09-29 18:15 | disposition home or self-care (01) ==
LOC: EDBD 15:19 → C.EDC 15:20
DX: R10.31 Right lower quadrant pain (principal); J45.909 Unspecified asthma, uncomplicated; E66.01 Morbid (severe) obesity due to excess calories; Z80.9 Family history of malignant neoplasm, unspecified; Z83.3 Family history of diabetes mellitus; Z82.49 Family history of ischemic heart disease and other diseases of the circulatory system; Z82.0 Family history of epilepsy and other diseases of the nervous system; Z83.6 Family history of other diseases of the respiratory system

== ENCOUNTER 2016-10-15 13:21 | Emergency (ER) | payer OTHER ==
[~2016-10-15] VITALS: Ht 165.1 cm; Wt 98.1 kg
[~2016-10-15 13:21] MED LIST changes: -ALBU18002 INH; -PLMINSR5 INH; -ZFRODT4HP SL
[2016-10-15 13:28] VITALS: TEMP 36.7; Ht 165.1 cm; Wt 98.1 kg
[2016-10-15] MEDS ORDERED: ACET-1256 PO (13:36)
--- NOTE | 2016-10-15 14:05 | DIAGNOSTIC IMAGING REPORT ---
LEFT KNEE 3 VIEWS CLINICAL HISTORY: Left knee injury. FINDINGS: AP, crosstable lateral, and sunrise views of left knee are compared to study dated 03/23/2014. The skeletal structures are well mineralized. No fracture is seen. The joint spaces of the knee are well-maintained. A calcified fabella is incidentally noted. A small joint effusion is suspected. Mild prepatellar soft tissue edema is noted. IMPRESSION: Mild soft tissue swelling and small joint effusion. No fracture is seen. Electronically signed by: Juan Jose Casarez M.D. 10/15/2016 2:02 PM Dictated Date/Time: 10/15/2016 1:59 PM
--- NOTE | 2016-10-15 15:10 | EMERGENCY ROOM VISIT NOTE ---
History First contact with patient: 13:33 Chief Complaint: KNEEPAIN Stated Complaint: LEFT KNEE PAIN History of Present Illness The patient is a 40 year old female who presents to the Emergency Room with complaints of left knee pain after she fell down steps approximately one hour prior to arrival. She denies any other injury, including head injury, neck pain , back pain or other extremity injuries. She rates her discomfort a 6 out of 10 , and reports that most of the pain is over the front of the knee. She denies any prior history of chronic left knee pain or other prior significant injuries. She denies any paresthesias or numbness of the left lower extremity. Review of Systems 10 system review was performed and was negative except for pertinent positives and negatives as indicated in history of present illness Past Medical/Surgical History Medical Problems: (1) Acute bronchitis (2) Asthma (3) section (4) Migraines (5) MORBID OBESITY (6) No Known Active Medical Problems (7) Pneumonitis (8) Pulmonary nodule Social History Smoking Status: Current Every Day Smoker Alcohol Use: none Drug Use: none Marital Status: Housing Status: lives with family Occupation Status: disabled Current/Historical Medications Scheduled Acetaminophen (Tylenol), 1,000 MG PO DAILY Scheduled PRN Albuterol Hfa (Ventolin Hfa), 2 PUFFS INH Q4H PRN for Wheezing Albuterol Sulf (Proventil 0.083% 2.5MG/3ML), 2.5 MG NEB QID PRN for SOB/Wheezing Allergies Coded Allergies: Aspirin (Verified Allergy, Mild, HIVES, 10/15/16) CAN TOLERATE ASA 81MG DOSE BUT DEVELOPED HIVES WITH ASA 325MG DOSE Physical Exam Vital Signs Date Time Temp Pulse Resp B/P Pulse Ox O2 Delivery O2 Flow Rate FiO2 10/15/16 13:28 36.7 78 20 135/87 98 Room Air Physical Exam CONSTITUTIONAL: Obese female, alert and oriented X 3 with positive affect. She does not appear in any acute distress. HEENT: Normocephalic, atraumatic. Pupils equal, round and reactive. NECK: Full active range of motion without discomfort. GASTROINTESTINAL: Bowel sounds present in all quadrants. Soft and nontender to palpation. MUSCULOSKELETAL: Examination of the left knee shows mild anterior edema and erythema. No abrasions or lacerations noted. Patient is able to straight leg raise. No joint effusion appreciated. The patient exhibits full active range of motion without significant discomfort. Ligamentous exam is normal. No tenderness to palpation of the gastroc or proximal leg. Pedal pulses are intact. INTEGUMENTARY: No rash or other significant dermatologic conditions noted. NEUROLOGIC: No focal neurologic deficits noted. Medical Decision & Procedures ER Provider Diagnostic Interpretation: My interpretation of left knee x-rays does not show any acute fractures or dislocations. Mild joint effusion is noted. Radiologist report is as follows: LEFT KNEE 3 VIEWS CLINICAL HISTORY: Left knee injury. FINDINGS: AP, crosstable lateral, and sunrise views of left knee are compared to study dated 03/23/2014. The skeletal structures are well mineralized. No fracture is seen. The joint spaces of the knee are well-maintained. A calcified fabella is incidentally noted. A small joint effusion is suspected. Mild prepatellar soft tissue edema is noted. IMPRESSION: Mild soft tissue swelling and small joint effusion. No fracture is seen. ED Course Patient history and physical exam were performed. Nurse's notes were reviewed. Vital signs were reviewed and normal. X-rays of the left knee were normal. A knee immobilizer was applied. The patient reports that she does not feel stable enough to use crutches. She was encouraged to intermittently apply ice to the knee. Limited weight-bearing until symptoms improve. Ibuprofen and/or Tylenol as needed for additional pain relief. She was encouraged to follow-up with her PCP as needed for any persistent pain. The patient was happy with plan of care, voiced understanding of all discharge instructions, refused any analgesics while in the emergency department, and rated her pain a 4 out of 10 at the time of discharge. Medical Decision Impression Primary Impression: Contusion of left knee Additional Impression: Fall down steps Departure Information Referrals Jaime Jamison M.D. (PCP) Patient Instructions My [facility] Problem Qualifiers Primary Impression: Contusion of left knee Encounter type: initial encounter Qualified Codes: S80.02XA - Contusion of left knee, initial encounter Additional Impression: Fall down steps Encounter type: initial encounter Qualified Codes: W10.8XXA - Fall (on) ( from) other stairs and steps, initial encounter
[2016-10-15 15:14] VITALS: BP 130/82; PULSE 80; O2SAT 98
[2016-11-21] MEDS ORDERED: HYDR-5688 PO (09:29)
[2016-12-12] MEDS ORDERED: HYDR-5688 PO ×2 (07:44→07:48)
== END 2016-10-15 15:15 | disposition home or self-care (01) ==
LOC: C.EDB 13:23 → C.EDD 15:15
DX: S80.02XA Contusion of left knee, initial encounter (principal); W10.8XXA Fall (on) (from) other stairs and steps, initial encounter; J45.909 Unspecified asthma, uncomplicated; F17.200 Nicotine dependence, unspecified, uncomplicated; Z88.6 Allergy status to analgesic agent

== ENCOUNTER → 2016-10-17 | Outpatient (CLI) | payer OTHER ==
[~2016-10-17] MED LIST changes: +ACET-1256 PO; +ALBINS/ INH; +AZITTAB PO; +GADAVIST IV PRN; +HYDR-5688 PO
--- NOTE | 2016-10-17 13:12 | DIAGNOSTIC IMAGING REPORT ---
MRI OF THE LEFT THUMB COMBO CLINICAL HISTORY: Mass. Seat belt injury. COMPARISON STUDY: Radiographs of the left thumb dated 09/13/2016. TECHNIQUE: MRI of the right thumb is performed utilizing various T1 and T2-weighted sequences in the axial, sagittal and coronal planes. Contrast-enhanced sequences are acquired following the IV administration of 9 cc of Gadavist. The examination is degraded by motion artifact. FINDINGS: Normal marrow signal intensity is seen in the regional skeletal structures. There is no MRI evidence of fracture in the left thumb. There is an ovoid T1 slightly hyperintense, T2 hyperintense, and enhancing ovoid lesion along the dorsal aspect of the first interphalangeal joint. The tendons of the thumb appear intact. The regional musculature is normal in appearance. IMPRESSION: 1. No osseous abnormality is seen in the left thumb. 2. There is an indeterminant nonaggressive appearing ovoid enhancing soft tissue nodule along the dorsal aspect of the thumb at the level of the interphalangeal joint. This is pathologically indeterminant, with top differential considerations including a glomus tumor or a giant cell tumor. Dictated: 10/17/2016 12:06 PM Transcribed: 10/17/2016 1:11 PM Brenda Electronically signed by: Juan Jose Casarez M.D. 10/17/2016 1:17 PM Dictated Date/Time: 10/17/2016 12:06 PM
== END | disposition home or self-care (01) ==
LOC: C.MRI 10:38 → MERGE 12:00
PROVIDERS: ATTEND Physical Medicine & Rehabilitation Sports Medicine
DX: R22.32 Localized swelling, mass and lump, left upper limb (principal)

== ENCOUNTER 2016-10-22 19:30 | Emergency (ER) | payer OTHER ==
[~2016-10-22] VITALS: Ht 165.1 cm; Wt 96.9 kg
[~2016-10-22 19:30] MED LIST changes: -ALBINS/ INH; -AZITTAB PO; -HYDR-5688 PO
[2016-10-22 19:33] VITALS: TEMP 36.8; Ht 165.1 cm; Wt 96.9 kg
[2016-10-22] MEDS ORDERED: DiphenhydrAMINE HCL 50 MG/ML VIAL IV STA (20:14)
[2016-10-22] MEDS ORDERED: PROCHLORPERAZINE 5 MG/ML 2 ML VIAL IV STA (20:14)
[2016-10-22] MEDS ORDERED: SODIUM CHLORIDE 0.9% 1000ML 1,000 ML IV STA (20:14)
[2016-10-22] MEDS ORDERED: KETOROLAC TROMETHAMINE 30 MG/ML VIAL IV STA (20:14)
--- NOTE | 2016-10-22 21:00 | EMERGENCY ROOM VISIT NOTE ---
History First contact with patient: 20:08 Chief Complaint: HEADACHE Stated Complaint: VERY BAD MIGRAINE,HEADACHE NAUSEA History of Present Illness The patient is a 40 year old female who presents to the Emergency Room with complaints of headache which started today. The patient states it is from one jehovah's witness to the other [place]. The patient denies any visual changes except for the lights bothering her eyes. The patient denies any dizziness. The patient admits to some nausea and vomiting. The patient has had similar headaches in the past but has not been formally diagnosed with migraine headaches. Her mother does have migraines. The patient states this is not the worst headache of her life. Review of Systems 10 system review was performed and was negative unless stated otherwise history of present illness. Past Medical/Surgical History Medical Problems: (1) Acute bronchitis (2) Asthma (3) section (4) Migraines (5) MORBID OBESITY (6) No Known Active Medical Problems (7) Pneumonitis (8) Pulmonary nodule Family History Cancer Diabetes mellitus FHx: COPD (chronic obstructive pulmonary disease) Heart disease Hypertension Migraine Seizures Social History Smoking Status: Current Every Day Smoker Alcohol Use: none Drug Use: none Marital Status: Housing Status: lives with family Occupation Status: disabled Current/Historical Medications Scheduled Acetaminophen (Tylenol), 1,000 MG PO DAILY Scheduled PRN Albuterol Hfa (Ventolin Hfa), 2 PUFFS INH Q4H PRN for Wheezing Albuterol Sulf (Proventil 0.083% 2.5MG/3ML), 2.5 MG NEB QID PRN for SOB/Wheezing Allergies Coded Allergies: Aspirin (Verified Allergy, Mild, HIVES, 10/22/16) CAN TOLERATE ASA 81MG DOSE BUT DEVELOPED HIVES WITH ASA 325MG DOSE Physical Exam Vital Signs Date Time Temp Pulse Resp B/P Pulse Ox O2 Delivery O2 Flow Rate FiO2 10/22/16 20:24 76 107/77 95 Room Air 10/22/16 19:33 36.8 82 18 119/84 98 Room Air Physical Exam GENERAL: 40-year-old white female appears lying in a darkened room in no acute distress. MENTAL STATUS: Patient is alert and oriented x3 EYES: PERRLA. EOMs intact EARS: Canals clear. TMs without fluid level noted. NECK: Supple, no lymphadenopathy noted. No carotid bruits noted. LUNGS: Clear auscultation without wheezes rales or rhonchi. CARDIAC: Regular rate and rhythm without murmur. Pulses is full and equal throughout. ABDOMEN: Positive bowel sounds all 4 quadrants. Soft, nontender to palpation without organomegaly or masses. NEURO:Cranial nerves two through 12 intact. Cerebellar function intact with [id number]. Fine motor intact with alternating finger motions. Medical Decision & Procedures Medications Administered Medications (Trade) Dose Ordered Sig/Chidi Route Start Time Stop Time Status Last Admin Dose Admin Prochlorperazine Edisylate (Compazine Inj) 10 mg NOW STAT IV 10/22/16 20:14 10/22/16 20:15 DC 10/22/16 20:30 10 MG Diphenhydramine HCl (Benadryl Inj) 12.5 mg NOW STAT IV 10/22/16 20:14 10/22/16 20:16 DC 10/22/16 20:26 12.5 MG Ketorolac Tromethamine 30 mg 30 mg NOW STAT IV 10/22/16 20:14 10/22/16 20:16 DC 10/22/16 20:29 30 MG Sodium Chloride (Nss 1000ml) 1,000 ml @ 999 mls/hr Q1H1M STAT IV 10/22/16 20:14 10/22/16 21:14 10/22/16 20:14 999 MLS/HR ED Course The patient was evaluated. IV access was obtained. The patient was given 1 L normal saline wide-open. She was given Compazine 10 mg IV, Toradol 30 mg IV and Benadryl 12.5 mg IV. The patient was reevaluated was feeling much better. The patient was discharged to home in stable condition. Medical Decision Differential includes: Acute intracranial bleed, trauma, meningitis, encephalitis, increased intracranial pressure, mass or mass effect, facial or dental infection, temporal arteritis, CVA, TIA, acute hypertensive emergency, sinusitis, carbon monoxide exposure. The patient is here frequently for multiple complaints. She has had similar symptoms in the past and responded well to the medications I gave her today. I do not feel the patient needs a repeat CT of the head. Impression Primary Impression: Headache Departure Information Dispostion Home / Self-Care Condition GOOD Referrals Jaime Jamison M.D. (PCP) Forms HOME CARE DOCUMENTATION FORM, IMPORTANT VISIT INFORMATION Patient Instructions Headache Pain, My [facility] Additional Instructions Take Tylenol as needed for headache. The home and rest in a dark room this evening. If you continue to get recurrent similar headaches recommend follow- up with your family physician for further evaluation and and possibly prophylactic treatment. Problem Qualifiers Primary Impression: Headache Headache type: unspecified Headache chronicity pattern: unspecified pattern
[2016-10-22 21:26] VITALS: BP 132/77; PULSE 64; O2SAT 98
[2016-11-21] MEDS ORDERED: HYDR-5688 PO (09:29)
[2016-12-12] MEDS ORDERED: HYDR-5688 PO ×2 (07:44→07:48)
== END 2016-10-22 21:27 | disposition home or self-care (01) ==
LOC: C.EDB 19:31 → C.EDA 21:27
DX: R51 Headache (principal); J45.909 Unspecified asthma, uncomplicated; E66.01 Morbid (severe) obesity due to excess calories; Z83.3 Family history of diabetes mellitus; Z82.49 Family history of ischemic heart disease and other diseases of the circulatory system; Z82.0 Family history of epilepsy and other diseases of the nervous system; F17.200 Nicotine dependence, unspecified, uncomplicated

== ENCOUNTER → 2016-10-22 | Outpatient (CLI) | payer OTHER ==
[~2016-10-22] MED LIST changes: -GADAVIST IV PRN
== END | disposition home or self-care (01) ==
LOC: C.PATH 08:35
PROVIDERS: ATTEND Physical Medicine & Rehabilitation Sports Medicine
DX: R22.32 Localized swelling, mass and lump, left upper limb (principal)

== ENCOUNTER → 2016-11-21 | Day surgery (SDC) | payer OTHER ==
[2016-11-07 09:12] VITALS: Ht 165.1 cm; Wt 88.6 kg
[~2016-11-21] VITALS: Ht 165.1 cm; Wt 88.6 kg
[~2016-11-21] MED LIST changes: -ACET-1256 PO; +ALBINS/ INH; +ATROPINE SULFATE 0.1 MG/ML 5ML SYR IV PRN; +AZITTAB PO; +BUPIVACAINE/EPINEPHRINE 0.5% MPF 1:200,000 30 ML VIAL ONE; +CEFAZOLIN 3000 MG/65 ML D5W IV SCH; +EpHEDrine SULFATE INJ 50 MG/ML AMP IV PRN; +FENTANYL CITRATE INJ 50 MCG/1 ML 2 ML VIAL ONE; +GLYCOPYRROLATE INJ 0.2 MG/ML VIAL ONE; +HYDR-5688 PO; +LACTATED RINGER'S 1000ML 1,000 ML IV SCH; +LIDOCAINE HCL 2% 2 ML VIAL (20MG/ML) ONE; +LIDOCAINE/EPINEPHRINE 1% INJ 50 ML VIAL ONE; +MIDAZOLAM HCL 1 MG/ML 2ML VIAL ONE; +ONDANSETRON INJ 2 MG/ML 2 ML VIAL IV PRN; +ONDANSETRON INJ 2 MG/ML 2 ML VIAL ONE; +OXYCODONE/ACETAMINOPHEN 5-325 TAB PO PRN; +PROPOFOL IV EMULSION 10 MG/ML 20 ML VIAL IV ONE; +SODIUM CHLORIDE 0.9% 1000ML 1,000 ML IV SCH
--- NOTE | 2016-11-21 08:12 | History & Physical Bridge Note ---
H&P Re-Evaluation Bridge Note: I have examined the patient, reviewed the History & Physical and in the interval since the performance of the History & Physical I have noted the following changes of clinical significance: No changes noted
--- NOTE | 2016-11-21 09:29 | [facility] Post Operative Brief Note ---
Immediate Operative Summary Operative Date Nov 21, 2016. Pre-Operative Diagnosis Left Thumb Mass Post-Operative Diagnosis None Procedure(s) Performed Left Thumb Incisional Biopsy Surgeon Dr Chambers [employer] Senior Sergeant Surgeon(s) Conchita Sharp PA-C Estimated Blood Loss 2ml Findings vascular soft tissue mass Specimens A: Left Thumb Mass (Suture- Dorsally and Distally) 1: Left Thumb Mass Culture Drains 0 Anesthesia local with IV sedation Complication(s) None Disposition Recovery Room / PACU
--- NOTE | 2016-11-21 09:29 | Anesthesia Progress Nt - [facility] ---
Anesthesia Post Op Note Date & Time Nov 21, 2016 at 09:29 Vital Signs Pain Intensity: 6 Vital Signs Past 12 Hours Date Time Temp Pulse Resp B/P (MAP) Pulse Ox O2 Delivery O2 Flow Rate FiO2 11/21/16 07:34 36.9 70 20 112/83 (93) 98 Room Air Notes Mental Status: alert / awake / arousable, participated in evaluation Pt Amnestic to Procedure: Yes Nausea / Vomiting: adequately controlled Pain: adequately controlled Airway Patency, RR, SpO2: stable & adequate BP & HR: stable & adequate Hydration State: stable & adequate Anesthetic Complications: no major complications apparent
--- NOTE | 2016-11-21 09:31 | Discharge Instructions-SurgCtr ---
Discharge Instructions Date of Service Nov 21, 2016. Visit Reason for Visit: Left Thumb Mass Discharge Discharge Diagnosis / Problem: Left thumb mass Discharge Goals Goal(s): Decrease discomfort, Improve function, Increase independence Activity Recommendations Activity Limitations: per Instructions/Follow-up section Weightbearing Status: Left weightbearing (as tolerated) Anesthesia . Post Anesthesia Instructions: If you have had General Anesthesia or IV Sedation: * Do not drive today. * Resume driving when surgeon permits. * Do not make important decisions or sign legal documents today. * Call surgeon for: 1. Temperature elevations greater than 101 degrees F. 2. Uncontrollable pain. 3. Excessive bleeding. 4. Persistent nausea and vomiting. 5. Medication intolerance (nausea, vomiting or rash). * For nausea and vomiting use only clear liquids such as: tea, soda, bouillon until nausea subsides, then gradually increase diet as tolerated. * If you have any concerns or questions, call your surgeon's office. If physician is unavailable and it is an emergency, call 911 or go to the nearest emergency room. . Instructions / Follow-Up Instructions / Follow-Up The following are instructions to follow after minor hand surgery. ACTIVITY RECOMMENDATIONS: * Minimize activity until your first visit after surgery. * No excessive walking, jogging, sports or laboring. * Return to activity is individualized. Most patients are able to return to everyday activities within 2 weeks. * Return to sports or intensive labor usually occurs at 1-2 months. * DRIVING: Driving may be resumed when you feel you have adequate pain control and use of the hand. * BATHING: You may shower or sponge-bathe immediately after surgery. The dressing will need to be covered with a plastic bag or plastic wrap until the dressing is changed on the fourth or fifth day after surgery. Once the dressing has been changed on the fourth or fifth day after surgery, you may shower and get the incision wet. * Wash with regular soap and water. * Do not bathe (submerge the incision), soak, swim or use a hot tub until the incision is completely healed over with normal skin and the doctor has given the OK to proceed. * There is no need to apply any ointments, powders or salves to your incision. * Do not apply alcohol or hydrogen peroxide directly to the incision. Diluted peroxide (50:50 mixture with sterile saline) may be used to clean dried blood from around the incision area. WORK/SCHOOL: * You may return to sedentary work or school when you are feeling comfortable. This is usually 3-7 days after surgery. * Expect increased discomfort with increased activity. Continue to elevate and ice the hand as much as possible. DIET: * Resume previous diet. MEDICATIONS: * You will have a prescription for pain medication and an anti-inflammatory medication after surgery. Use the pain pills for severe pain and the anti-inflammatory for less severe pain. * Once the pain pills have run out, try to use the anti-inflammatory. If this is not effective then contact the office for assistance. * The pain medication may cause nausea, constipation and sleepiness. You should see how they affect you before driving or similar activity. * The anti-inflammatory may cause stomach upset and bleeding. If this occurs, let your doctor know immediately . * Some patients may need blood clot prevention. This can be done with either a pill or a simple shot. Your doctor will advise you on when to begin these medications and how to take them. * Do not take aspirin or other anti-inflammatory products (i.e. Advil or Aleve ) if taking blood thinner medication. * Take a stool softener like Colace or a stimulant like Senokot to prevent constipation. SPECIAL CARE INSTRUCTIONS: ICE: * Do not apply ice directly to the skin. * Use a thin dressing or stockinet between the skin and ice bag. The dressing in place after surgery will suffice. * Apply ice for 20-30 minutes and repeat every 2-4 hours. This is especially important for the first 3-7 days after surgery. * Once the pain improves, use ice as needed. ELEVATION: * Keep your hand elevated at or above the level of your heart as much as possible. * Expect some increased discomfort and swelling if you allow your hand to hang down for any length of time. DRESSING: * Your dressing will be changed 4-5 days after surgery by the physical therapist or physician's hardware sales assistant. Leave your dressing intact until this time. * You may then change your dressing daily with clean dry gauze or Band-aids and a soft wrap or stockinet. * Always wash your hands prior to touching the incision area. * Once the stitches are removed, you may leave the wound open to air or cover with a thin bandage. * There is no need to apply any ointments, powders or salves to your incision. * Expect some bloody drainage for the first few days after surgery. * Leave the tape strips in place (if present) for 5-7 days. * The initial dressing after surgery may become soaked with blood or fluid which is normal. You may reinforce your dressing with clean, dry gauze as needed. BRACE: * Bracing is generally not needed after routine hand surgery. THERAPY: * Physical therapy may be prescribed after your surgery. * For carpal tunnel and trigger digit surgery you may begin moving your fingers and wrist immediately after surgery as tolerated. * Be careful to not overuse. * Once the sutures are removed, further range of motion exercises can be performed. * Hand incisions may be very sensitive for a few months after surgery so avoid excessive pressure on the incision. If necessary, use a padded weightlifters' glove. * You may massage the incision with skin cream to make it less sensitive and reduce scarring. * Hand strength usually returns with normal use. * If needed, squeezing a soft sponge or Play-dough may help. * Your doctor will recommend physical therapy if necessary. PROBLEMS/QUESTIONS: * If you have any problems such as severe pain, numbness, tingling or high fevers or if you have any questions, please contact the office at [phone]. * It is not uncommon to have some numbness and tingling after the surgery especially if you have had a nerve block done. This should gradually improve over the first 1- 2 days. If this persists longer or worsens then contact the office. FOLLOW UP VISIT: * If not already scheduled, please call the office at to schedule follow-up appointments for approximately 10 days, 6 weeks and 3 months after surgery. * YOu have a follow up with Dr. Chambers on 12/03/16 at 1:15 p.m. Diet Recommendations Home Diet: no limitations, resume previous diet Procedures Procedures Performed: Left Thumb Incisional Biopsy Pending Studies Studies pending at discharge: no Medical Emergencies . Who to Call and When: Medical Emergencies: If at any time you feel your situation is an emergency, please call 911 immediately. . Non-Emergent Contact Non-Emergency issues call your: Surgeon Call Non-Emergent contact if: temperature is above 101, your pain is not controlled, your pain is concerning you, wound has increased drainage, wound has increased redness, wound has increased pain, you have any medication questions . . "Provider Documentation" section prepared by Vanessa Sharp. .
--- NOTE | 2016-11-21 09:36 | [facility] Operative Report ---
Operative Report Operative Date Nov 21, 2016. Pre-Operative Diagnosis Left Thumb Mass Post-Operative Diagnosis Left thumb mass Procedure(s) Performed Incisional biopsy left thumb mass Surgeon Dr Marcus Chambers Textile Machinery Sales Representative Surgeon(s) Vanessa Sharp PA-C Estimated Blood Loss 2ml Findings Mass left thumb Specimens A: Left Thumb Mass (Suture- Dorsally and Distally) 1: Left Thumb Mass Culture Drains 0 Anesthesia local with IV sedation Complication(s) None Disposition Recovery Room / PACU (stable) Indications Patient is a 40 year old female who presented to the office with complaints of left thumb mass. Xrays/MRI and needle biopsy obtained with no definitive diagnosis of mass. Incisional biopsy was recommended. She agreed to proceed with surgery. Risks/complications discussed, informed consent obtained. Description of Procedure Patient was taken to the operating room, given IV Ancef for surgical prophylaxis. Local injection with sedation given. Time out performed, prepped and draped in routine sterile fashion. I was present the entire case, please see Dr. Chambers's operative report for further detail. Patient was awakened and taken to the recovery room in stable condition. I attest to the content of the Intraoperative Record and any orders documented therein. Any exceptions are noted below.
[2016-11-21 09:38] VITALS: TEMP 36.5
[2016-11-21 10:03] VITALS: BP 106/72; PULSE 70; O2SAT 98
--- NOTE | 2016-11-21 10:26 | OPERATIVE REPORT ---
DATE OF OPERATION: 11/21/2016 PREOPERATIVE DIAGNOSIS: Left thumb mass. PROCEDURE PERFORMED: Left thumb incisional biopsy. SURGEON: Dr. Chambers. LIVE OUT NANNY: Vanessa Sharp PA-C. No resident or fellow available. ANESTHESIA: Local with IV sedation. INDICATIONS OF PROCEDURE: The patient is a 40-year-old female with a painful lesion on the dorsal aspect of her left thumb located at the IP joint. It is about 1.5 cm long, 1 cm wide, it is firm, nonmobile. The skin is not adherent to it. Radiographs show soft tissue lesion without any other bone destruction. MRI shows a solid lesion without any diagnostic characteristics. 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 She is taken to surgery for an incisional biopsy followed by definitive treatment once a diagnosis has been obtained. PROCEDURE IN DETAIL: Informed consent was obtained. The patient identified as Vanessa Jung. She identified the operative site as the left thumb. I marked with my initials. A preop surgical time out was performed. A preop dose of IV antibiotics was given. She was positioned supine on the hospital stretcher and the left arm was on a hand table, tourniquet was applied to the left upper arm. The limb was prepped and draped in usual sterile fashion. The limb was exsanguinated with gravity and the tourniquet inflated to 225 mmHg. An Esmarch was not utilized. DVT prophylaxis was not indicated. The examination showed a 1.5 x 1 cm soft tissue lesion fairly firmly adhered to the underlying tissue. The skin was mobile over top of it. There were no skin changes. There was full movement of the thumb IP joint. The lesion was located just radial to the midline and just proximal to the level of the joint. 1% lidocaine with epinephrine and 0.5% Marcaine with epinephrine were injected for a digital block at the level of the MP flexion crease volarly and the CMC joint dorsally. A longitudinal midline incision centered over the lesion was made about 1.5 cm in length. The incision was carried directly down to the lesion which had a yellowish cast to it. It did not appear to be directly adherent to the surrounding tissues and had a fairly well defined reactive zone. A longitudinal incision was made within the lesion and a longitudinally shaped V-shape wedge was removed and tagged with a stitch dorsally and distally for orientation. This was sent for specimen. A routine culture was also obtained. The tourniquet was let down after approximately 5 minutes of inflation and meticulous hemostasis was performed with pressure, needle tip cautery and irrigation with epinephrine local anesthetic, Marcaine 1% and lidocaine 0.5%. After adequate hemostasis was obtained, the lesion which was yellowish in color, not cystic but solid. The skin was then closed using 4-0 nylon with very small bites along the margins of the wound. There was no notable or significant bleeding. A soft sterile dressing was then applied. The lesion was noted to be moderately vascular. The patient was then awakened from anesthesia without difficulty and taken to recovery in stable condition. There were no complications. Specimens were as mentioned above. Counts were correct. Blood loss was minimal. At the conclusion of the operation, I spoke to patient's family and informed them of findings and instructions were given. She will be in for a dressing change and can do early active range of motion. If there are any problems with bleeding, swelling, etc. she will let us know. Will check on path report. 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 I attest to the content of the Intraoperative Record and any orders documented therein. Any exception s are noted below.
== END | disposition home or self-care (01) ==
LOC: X.SURG 06:28
PROVIDERS: ATTEND Physical Medicine & Rehabilitation Sports Medicine
DX: M65.842 Other synovitis and tenosynovitis, left hand (principal); J44.9 Chronic obstructive pulmonary disease, unspecified; E66.9 Obesity, unspecified; Z79.899 Other long term (current) drug therapy

== ENCOUNTER 2016-12-08 12:55 | Emergency (ER) | payer OTHER ==
[~2016-12-08] VITALS: Ht 165.1 cm; Wt 97.8 kg
[~2016-12-08 12:55] MED LIST changes: -ALBINS/ INH; -ATROPINE SULFATE 0.1 MG/ML 5ML SYR IV PRN; -AZITTAB PO; -BUPIVACAINE/EPINEPHRINE 0.5% MPF 1:200,000 30 ML VIAL ONE; -CEFAZOLIN 3000 MG/65 ML D5W IV SCH; -EpHEDrine SULFATE INJ 50 MG/ML AMP IV PRN; -FENTANYL CITRATE INJ 50 MCG/1 ML 2 ML VIAL ONE; -GLYCOPYRROLATE INJ 0.2 MG/ML VIAL ONE; -HYDR-5688 PO; -LACTATED RINGER'S 1000ML 1,000 ML IV SCH; -LIDOCAINE HCL 2% 2 ML VIAL (20MG/ML) ONE; -LIDOCAINE/EPINEPHRINE 1% INJ 50 ML VIAL ONE; -MIDAZOLAM HCL 1 MG/ML 2ML VIAL ONE; -ONDANSETRON INJ 2 MG/ML 2 ML VIAL IV PRN; -ONDANSETRON INJ 2 MG/ML 2 ML VIAL ONE; -OXYCODONE/ACETAMINOPHEN 5-325 TAB PO PRN; -PROPOFOL IV EMULSION 10 MG/ML 20 ML VIAL IV ONE; -SODIUM CHLORIDE 0.9% 1000ML 1,000 ML IV SCH
[2016-12-08 12:59] VITALS: BP 121/81; PULSE 90; TEMP 36.7; O2SAT 94; Ht 165.1 cm; Wt 97.8 kg
[2016-12-08] MEDS ORDERED: DOCUSATE SODIUM 100 MG/10 ML UDC PO STA (13:35)
[2016-12-08] MEDS ORDERED: ALBUT/IPRATROP 3MG/0.5MG NEB 3 ML VIAL INH STA (13:36)
--- NOTE | 2016-12-08 13:42 | EMERGENCY ROOM VISIT NOTE ---
History Report prepared by Mabel: Julieth Duckworth Under the Supervision of: Dr. Disha Huggins M.D. First contact with patient: 13:10 Chief Complaint: SORETHROAT Stated Complaint: THROAT & EAR PAIN History of Present Illness The patient is a 41 year old female who presents to the Emergency Room with complaints of a worsening sore throat that started 2 days ago. The patient is also experiencing sinus congestion and a productive cough with yellow sputum. She states that she started to experience the cough and sinus congestion prior to experiencing a sore throat. The patient smokes .5-1 pack a day, but states that she has not smoked today secondary to her symptoms. The patient denies any alcohol use. The patient has a nebulizer at home, but did not specify if she has used it recently. Source of History: patient Onset: 2 days ago Position: throat Quality: other (sore throat) Timing: worsening Associated Symptoms: + cough (productive with yellow sputum) Note: sinus congestion Review of Systems See HPI for pertinent positives & negatives. A total of 10 systems reviewed and were otherwise negative. Past Medical & Surgical Medical Problems: (1) Acute bronchitis (2) Asthma (3) section (4) Migraines (5) MORBID OBESITY (6) No Known Active Medical Problems (7) Pneumonitis (8) Pulmonary nodule Family History Cancer Diabetes mellitus FHx: COPD (chronic obstructive pulmonary disease) Heart disease Hypertension Migraine Seizures Social History Smoking Status: Current Every Day Smoker Alcohol Use: none Drug Use: none Marital Status: Housing Status: lives with family Occupation Status: disabled Current/Historical Medications Scheduled PRN Albuterol Hfa (Ventolin Hfa), 2 PUFFS INH Q4H PRN for Wheezing Albuterol Sulf (Proventil 0.083% 2.5MG/3ML), 2.5 MG NEB QID PRN for SOB/Wheezing Allergies Coded Allergies: Aspirin (Verified Allergy, Mild, HIVES, 12/08/16) CAN TOLERATE ASA 81MG DOSE BUT DEVELOPED HIVES WITH ASA 325MG DOSE Physical Exam Vital Signs Date Time Temp Pulse Resp B/P (MAP) Pulse Ox O2 Delivery O2 Flow Rate FiO2 12/08/16 12:59 95 Room Air 12/08/16 12:59 36.7 90 18 121/81 94 Room Air Physical Exam Vital signs reviewed. General: Well-appearing female, in no significant distress. HEENT: No scleral icterus, PERRLA, cerumen noted in the left ear, posterior oropharynx is clear, neck supple. Atraumatic. Cardiovascular: Regular rate and rhythm, no extra sounds. Pulmonary: Wheezing throughout bilateral lung hurley, normal work of breathing. Abdomen: Soft, obese, nontender, nondistended, positive bowel sounds. Musculoskeletal: Atraumatic, no peripheral edema. Neurologic: Patient awake alert and oriented x 3 Skin: Warm, dry, no rash Medical Decision & Procedures Medications Administered Medications (Trade) Dose Ordered Sig/Chidi Route Start Time Stop Time Status Last Admin Dose Admin Albuterol/ Ipratropium (Duoneb) 3 ml NOW STAT INH 12/08/16 13:36 12/08/16 13:37 DC 12/08/16 13:36 3 ML ED Course 1322: Past medical records reviewed. The patient was evaluated in room B4. A complete history and physical examination was performed. 1336: Ordered DuoNeb 3 ml INH 1417: Upon reevaluation, the patient appeared to have improvement of her symptoms. I discussed findings with her. She verbalized agreement of the treatment plan. She was discharged home. Medical Decision Differentials include otitis media, URI, strep pharyngitis, cerumen obstruction , otitis externa. Medication Reconciliation: I attest that I have personally reviewed the patient' s current medication list. Blood Pressure Screening: Patient was found to have normal blood pressure on screening and does not require follow-up. This patient was evaluated and appeared to be in no significant distress. Physical examination is consistent with a cerumen impaction of the left ear as well as wheezing bilaterally. Patient appears to be suffering from a viral upper respiratory infection. Rapid strep is obtained and is negative. The left ear was flushed. On my reevaluation, residual cerumen remained. This was scooped out and the TM was visualized. There is no acute infectious or inflammatory finding. She was feeling improved after the DuoNeb treatment in the ER. She was advised to continue ibuprofen as needed for pain or fever. Patient will continue nebulizer treatments as needed. She'll follow-up with her physician for reevaluation this week and return to the ER for worsening of symptoms or any medical concerns. Impression Primary Impression: Wheezing-associated respiratory infection Additional Impression: Impacted cerumen of left ear Scribe Attestation The scribe's documentation has been prepared under my direction and personally reviewed by me in its entirety. I confirm that the note above accurately reflects all work, treatment, procedures, and medical decision making performed by me. Departure Information Dispostion Home / Self-Care Referrals Jaime Jamison M.D. (PCP) Forms HOME CARE DOCUMENTATION FORM, IMPORTANT VISIT INFORMATION Patient Instructions [facility] Additional Instructions Diagnosis: Upper respiratory infection, wheezing Continue your nebulizers as prescribed. Ibuprofen 600 mg every 6 hours as needed for fever or pain with food. Tylenol 650 mg every 6 hours as needed for pain or fever. Drink plenty of clear fluids. Stop smoking. Follow-up with your physician this week for reevaluation. Return to the ER for worsening of symptoms or any medical concerns. Problem Qualifiers
[2016-12-12] MEDS ORDERED: HYDR-5688 PO ×2 (07:44→07:48)
== END 2016-12-08 14:27 | disposition home or self-care (01) ==
LOC: C.EDB 12:56
DX: J06.9 Acute upper respiratory infection, unspecified (principal); H61.22 Impacted cerumen, left ear; J45.909 Unspecified asthma, uncomplicated; F17.200 Nicotine dependence, unspecified, uncomplicated; Z88.6 Allergy status to analgesic agent; Z80.9 Family history of malignant neoplasm, unspecified; Z83.3 Family history of diabetes mellitus; Z82.49 Family history of ischemic heart disease and other diseases of the circulatory system; Z82.0 Family history of epilepsy and other diseases of the nervous system

== ENCOUNTER → 2016-12-12 | Day surgery (SDC) | payer OTHER ==
[2016-12-05 13:39] VITALS: Ht 165.1 cm; Wt 88.6 kg
[~2016-12-12] VITALS: Ht 165.1 cm; Wt 88.6 kg
[~2016-12-12] MED LIST changes: +ALBINS/ INH; +ATROPINE SULFATE 0.1 MG/ML 5ML SYR IV PRN; +AZITTAB PO; +BUPIVACAINE/EPINEPHRINE 0.5% MPF 1:200,000 10 ML VIAL ONE; +CEFAZOLIN 3000 MG/65 ML D5W IV SCH; +EpHEDrine SULFATE INJ 50 MG/ML AMP IV PRN; +FENTANYL CITRATE INJ 50 MCG/1 ML 2 ML VIAL IV PRN; +FENTANYL CITRATE INJ 50 MCG/1 ML 2 ML VIAL ONE; +HYDR-5688 PO; +LACTATED RINGER'S 1000ML 1,000 ML IV SCH; +LIDOCAINE HCL 2% 2 ML VIAL (20MG/ML) ONE; +LIDOCAINE/EPINEPHRINE 1% INJ 50 ML VIAL ONE; +MIDAZOLAM HCL 1 MG/ML 2ML VIAL ONE; +ONDANSETRON INJ 2 MG/ML 2 ML VIAL IV PRN; +OXYCODONE/ACETAMINOPHEN 5-325 TAB PO PRN; +PROMETHAZINE HCL INJ 6.25 MG in SODIUM CHLORIDE 0.9% 50ML 50 ML IV PRN; +PROPOFOL IV EMULSION 10 MG/ML 20 ML VIAL IV ONE; +SODIUM CHLORIDE 0.9% 1000ML 1,000 ML IV SCH
--- NOTE | 2016-12-12 07:48 | Discharge Instructions-SurgCtr ---
Discharge Instructions Date of Service Dec 12, 2016. 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 Post Anesthesia Instructions: If you have had General Anesthesia or IV Sedation: * Do not drive today. * Resume driving when surgeon permits. * Do not make important decisions or sign legal documents today. * Call surgeon for: 1. Temperature elevations greater than 101 degrees F. 2. Uncontrollable pain. 3. Excessive bleeding. 4. Persistent nausea and vomiting. 5. Medication intolerance (nausea, vomiting or rash). * For nausea and vomiting use only clear liquids such as: tea, soda, bouillon until nausea subsides, then gradually increase diet as tolerated. * If you have any concerns or questions, call your surgeon's office. If physician is unavailable and it is an emergency, call 911 or go to the nearest emergency room. . Instructions / Follow-Up Instructions / Follow-Up The following are instructions to follow after minor hand surgery. ACTIVITY RECOMMENDATIONS: * Minimize activity until your first visit after surgery. * No excessive walking, jogging, sports or laboring. * Return to activity is individualized. Most patients are able to return to everyday activities within 2 weeks. * Return to sports or intensive labor usually occurs at 1-2 months. * DRIVING: Driving may be resumed when you feel you have adequate pain control and use of the hand. * BATHING: You may shower or sponge-bathe immediately after surgery. The dressing will need to be covered with a plastic bag or plastic wrap until the dressing is changed on the fourth or fifth day after surgery. Once the dressing has been changed on the fourth or fifth day after surgery, you may shower and get the incision wet. * Wash with regular soap and water. * Do not bathe (submerge the incision), soak, swim or use a hot tub until the incision is completely healed over with normal skin and the doctor has given the OK to proceed. * There is no need to apply any ointments, powders or salves to your incision. * Do not apply alcohol or hydrogen peroxide directly to the incision. Diluted peroxide (50:50 mixture with sterile saline) may be used to clean dried blood from around the incision area. WORK/SCHOOL: * You may return to sedentary work or school when you are feeling comfortable. This is usually 3-7 days after surgery. * Expect increased discomfort with increased activity. Continue to elevate and ice the hand as much as possible. DIET: * Resume previous diet. MEDICATIONS: * You will have a prescription for pain medication and an anti-inflammatory medication after surgery. Use the pain pills for severe pain and the anti-inflammatory for less severe pain. * Once the pain pills have run out, try to use the anti-inflammatory. If this is not effective then contact the office for assistance. * The pain medication may cause nausea, constipation and sleepiness. You should see how they affect you before driving or similar activity. * The anti-inflammatory may cause stomach upset and bleeding. If this occurs, let your doctor know immediately . * Some patients may need blood clot prevention. This can be done with either a pill or a simple shot. Your doctor will advise you on when to begin these medications and how to take them. * Do not take aspirin or other anti-inflammatory products (i.e. Advil or Aleve ) if taking blood thinner medication. * Take a stool softener like Colace or a stimulant like Senokot to prevent constipation. SPECIAL CARE INSTRUCTIONS: ICE: * Do not apply ice directly to the skin. * Use a thin dressing or stockinet between the skin and ice bag. The dressing in place after surgery will suffice. * Apply ice for 20-30 minutes and repeat every 2-4 hours. This is especially important for the first 3-7 days after surgery. * Once the pain improves, use ice as needed. ELEVATION: * Keep your hand elevated at or above the level of your heart as much as possible. * Expect some increased discomfort and swelling if you allow your hand to hang down for any length of time. DRESSING: * Your dressing will be changed 4-5 days after surgery by the physical therapist or physician's environmental emergencies assistant. Leave your dressing intact until this time. * You may then change your dressing daily with clean dry gauze or Band-aids and a soft wrap or stockinet. * Always wash your hands prior to touching the incision area. * Once the stitches are removed, you may leave the wound open to air or cover with a thin bandage. * There is no need to apply any ointments, powders or salves to your incision. * Expect some bloody drainage for the first few days after surgery. * Leave the tape strips in place (if present) for 5-7 days. * The initial dressing after surgery may become soaked with blood or fluid which is normal. You may reinforce your dressing with clean, dry gauze as needed. BRACE: * Bracing is generally not needed after routine hand surgery. THERAPY: * Physical therapy may be prescribed after your surgery. * You may begin moving your fingers and wrist immediately after surgery as tolerated. * Be careful to not overuse. * Once the sutures are removed, further range of motion exercises can be performed. * Hand incisions may be very sensitive for a few months after surgery so avoid excessive pressure on the incision. If necessary, use a padded weightlifters' glove. * You may massage the incision with skin cream to make it less sensitive and reduce scarring. * Hand strength usually returns with normal use. * If needed, squeezing a soft sponge or Play-dough may help. * Your doctor will recommend physical therapy if necessary. PROBLEMS/QUESTIONS: * If you have any problems such as severe pain, numbness, tingling or high fevers or if you have any questions, please contact the office at [phone]. * It is not uncommon to have some numbness and tingling after the surgery especially if you have had a nerve block done. This should gradually improve over the first 1- 2 days. If this persists longer or worsens then contact the office. FOLLOW UP VISIT: * If not already scheduled, please call the office at to schedule follow-up appointments for approximately 10 days, 6 weeks and 3 months after surgery. Diet Recommendations Home Diet: no limitations, resume previous diet Pending Studies Studies pending at discharge: no Medical Emergencies . Who to Call and When: Medical Emergencies: If at any time you feel your situation is an emergency, please call 911 immediately. . Non-Emergent Contact Non-Emergency issues call your: Surgeon Call Non-Emergent contact if: temperature is above 101, your pain is not controlled, your pain is concerning you, wound has increased drainage, wound has increased redness, wound has increased pain, you have any medication questions . . "Provider Documentation" section prepared by Vanessa Sharp. . [place] Drug Monitoring Program Search Results: patient reviewed within database, no issues identified
--- NOTE | 2016-12-12 09:03 | [facility] Post Operative Brief Note ---
Immediate Operative Summary Operative Date Dec 12, 2016. 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 Madie Chambers Autographer Surgeon(s) Dr. Conchita Velazquez Estimated Blood Loss 2 ml Findings as above Specimens A. 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
[2016-12-12 09:45] VITALS: BP 103/71; PULSE 76; TEMP 37.4; O2SAT 95
--- NOTE | 2016-12-12 09:52 | Anesthesia Progress Nt - [facility] ---
Anesthesia Post Op Note Date & Time Dec 12, 2016 at 09:52 Vital Signs Pain Intensity: 0 Vital Signs Past 12 Hours Date Time Temp Pulse Resp B/P (MAP) Pulse Ox O2 Delivery O2 Flow Rate FiO2 12/12/16 09:45 37.4 76 16 103/71 (82) 95 Room Air 12/12/16 09:09 36.2 81 20 102/70 (81) 98 Room Air 12/12/16 06:22 37.0 78 18 105/73 (84) 98 Room Air Notes Mental Status: alert / awake / arousable, participated in evaluation Pt Amnestic to Procedure: Yes Nausea / Vomiting: adequately controlled Pain: adequately controlled Airway Patency, RR, SpO2: stable & adequate BP & HR: stable & adequate Hydration State: stable & adequate Anesthetic Complications: no major complications apparent
--- NOTE | 2016-12-12 10:35 | OPERATIVE REPORT ---
DATE OF OPERATION: 12/12/2016 PREOPERATIVE DIAGNOSIS: Giant cell tumor of tendon sheath, left thumb. POSTOPERATIVE DIAGNOSIS: Same. PROCEDURE PERFORMED: Excisional biopsy of left thumb giant cell of tumor tendon sheath. SURGEON: Dr. Chambers. MULE OPERATOR: Shane Vivar, fellow. No PA available. ANESTHESIA: Local with IV sedation. INDICATIONS FOR PROCEDURE: The patient is a 41-year-old female with a painful lesion on the dorsum of her left thumb. This had been worked up with x-ray, MRI, needle biopsy and an incisional biopsy, which has confirmed the diagnosis of giant cell tumor of tendon sheath. She returns to the operating room today for elective surgical excisional biopsy. PROCEDURE IN DETAIL: Informed consent was obtained. The patient identified as Vanessa Jung. She identified the operative site as the left thumb. I marked it with my initials. A preop surgical time out was performed. A preop dose of antibiotics was given. She was taken to the operating room, positioned supine on the operating room table, a tourniquet was applied to the left arm, the left hand was suspended on the hand table. The limb was prepped and draped in the usual sterile fashion. Her prior wound was completely healed. The lesion was a little bit to the radial side of midline at the level of the interphalangeal joint of the thumb. The lesion was perhaps a centimeter in diameter. It was about a centimeter proximal to the eponychial fold. The limb was exsanguinated with the Esmarch, tourniquet inflated to 225 mmHg. DVT prophylaxis was not indicated. A digital block with 1% lidocaine with epinephrine and 0.5% Marcaine with epinephrine was administered. She received a preoperative dose of IV antibiotics. She had full range of motion of the thumb. The prior incision was opened and extended 1 cm distal and 1.5 cm proximal. Upon incising the skin, I carefully identified the undisturbed transition zone just proximal to the lesion and then used this to dissect distally on the medial and lateral skin flaps, removing some early scar and granulation tissue from the prior excisional biopsy several weeks ago. I then carefully dissected off the remainder of the lesion. There was one lobule of lesion proximal and radial along the tendon sheath, which was also identified. I did not feel that this was a satellite lesion, but rather a continuous lesion with a small lobule about 3-4 mm proximal to the main lesion. The lesion was easily and bluntly dissected off of the tendon dorsally. The extensor pollicis longus tendon itself was identified and protected. I carefully dissected the lesion, using blunt and sharp dissection, easily delineating it off of the tendon. The lesion appeared to either come from the distal radial portion of the tendon or from the interphalangeal joint. The dorsal radial capsule of the joint appeared to be involved. This was all excised completely and sent as a surgical specimen. I carefully used a rongeur on the undersurface of the skin within the joint and on the tendon to remove and debride the lesion. No residual lesion was found. The inside of the joint looked normal. I did not see any evidence of the lesion being present on the inside of the interphalangeal joint. A complete marginal excision was effected. The lesion was sent for specimen. The tourniquet was let down. Meticulous hemostasis was performed, irrigation was done and the skin was closed with 4-0 nylon interrupted horizontal mattress. There were no complications. Specimens were as mentioned above. A soft sterile dressing was applied. Blood loss was minimal. At the conclusion of operation, I spoke to the patient's family and informed them of my findings. Postoperative instructions were given. She will be in, in a few days, for dressing change. She can do active movement and light use of the thumb as tolerated. The tourniquet was set down at the conclusion of the operation. Meticulous hemostasis was performed. Counts were correct. The lesion was about 1 cm long, 0.5 cm wide, it was yellowish-lyons in coloration, spongy in consistency, other than the small projection proximally, which, I think, was in continuity with the main lesion. There were no other satellite-type lesions noted. I thoroughly cleaned off of the skin and I was careful to protect the germinal matrix distally. I attest to the content of the Intraoperative Record and any orders documented therein. Any exception s are noted below.
== END | disposition home or self-care (01) ==
LOC: X.SURG 06:05
PROVIDERS: ATTEND Physical Medicine & Rehabilitation Sports Medicine
DX: M12.2 Villonodular synovitis (pigmented) (principal); J45.909 Unspecified asthma, uncomplicated; E66.9 Obesity, unspecified; F17.210 Nicotine dependence, cigarettes, uncomplicated; Z79.899 Other long term (current) drug therapy

== ENCOUNTER 2016-12-31 17:35 | Emergency (ER) | payer OTHER ==
[~2016-12-31] VITALS: Ht 165.1 cm; Wt 93.2 kg
[~2016-12-31 17:35] MED LIST changes: -ALBINS/ INH; -ATROPINE SULFATE 0.1 MG/ML 5ML SYR IV PRN; -AZITTAB PO; -BUPIVACAINE/EPINEPHRINE 0.5% MPF 1:200,000 10 ML VIAL ONE; -CEFAZOLIN 3000 MG/65 ML D5W IV SCH; -EpHEDrine SULFATE INJ 50 MG/ML AMP IV PRN; -FENTANYL CITRATE INJ 50 MCG/1 ML 2 ML VIAL IV PRN; -FENTANYL CITRATE INJ 50 MCG/1 ML 2 ML VIAL ONE; -LACTATED RINGER'S 1000ML 1,000 ML IV SCH; -LIDOCAINE HCL 2% 2 ML VIAL (20MG/ML) ONE; -LIDOCAINE/EPINEPHRINE 1% INJ 50 ML VIAL ONE; -MIDAZOLAM HCL 1 MG/ML 2ML VIAL ONE; -ONDANSETRON INJ 2 MG/ML 2 ML VIAL IV PRN; -OXYCODONE/ACETAMINOPHEN 5-325 TAB PO PRN; -PROMETHAZINE HCL INJ 6.25 MG in SODIUM CHLORIDE 0.9% 50ML 50 ML IV PRN; -PROPOFOL IV EMULSION 10 MG/ML 20 ML VIAL IV ONE; -SODIUM CHLORIDE 0.9% 1000ML 1,000 ML IV SCH
[2016-12-31 17:40] VITALS: TEMP 37.2; O2SAT 95; Ht 165.1 cm; Wt 93.2 kg
--- NOTE | 2016-12-31 18:35 | DIAGNOSTIC IMAGING REPORT ---
CHEST ONE VIEW PORTABLE CLINICAL HISTORY: Chest pain. COMPARISON STUDY: Chest radiograph September 22, 2016. FINDINGS: Lung volumes are normal. There is no pneumothorax or pleural effusion. Pulmonary vascularity is normal. Cardiac size is normal. Mediastinal contours are normal. The appearance of the chest is unchanged. IMPRESSION: No acute cardiopulmonary findings. Electronically signed by: Keven Talamantes M.D. 12/31/2016 6:34 PM Dictated Date/Time: 12/31/2016 6:32 PM
[2016-12-31] MEDS ORDERED: ALBUT/IPRATROP 3MG/0.5MG NEB 3 ML VIAL INH STA (18:37)
[2016-12-31] MEDS ORDERED: LORAZEPAM 2 MG/ML 1 ML VIAL IV STA ×2 (18:37→23:09)
[2016-12-31 18:42] LABS: POINT OF CARE TROPONIN I < 0.030 ng/ml (0-0.045)
[2016-12-31 18:57] LABS: BASO % 0.4 %; BASO ABS # 0.04 K/uL (0-0.2); COMPLETE YES; EOS % 1.2 %; HEMATOCRIT 40.1 % (37-47); IG% 0.1 %; LYMPH % 17.9 %; LYMPH ABS # 1.75 K/uL (1.2-3.4); MEAN CELL VOLUME 88.9 fL (80-100); MEAN CORPUSCULAR HEMOGLOBIN 30.2 pg (25-34); MEAN CORPUSCULAR HGB CONC 33.9 g/dl (32-36); MEAN PLATELET VOLUME 10.7 fL (7.4-10.4); MONO % 5.2 %; NEUT % 75.2 %; PLATELET COUNT 216 K/uL (130-400); RED BLOOD COUNT 4.51 M/uL (4.2-5.4); WHITE BLOOD COUNT 9.79 K/uL (4.8-10.8)
[2016-12-31 19:17] LABS: ALT/SGPT 16 U/L (12-78); BLOOD UREA NITROGEN 7 mg/dl (7-18); BUN/CREATININE RATIO 9.8 (10-20); CALCIUM 8.8 mg/dl (8.5-10.1); CARBON DIOXIDE 24 mmol/L (21-32); CHLORIDE 109 mmol/L (98-107); CREATININE 0.66 mg/dl (0.60-1.20); GLUCOSE 91 mg/dl (70-99); POTASSIUM 3.7 mmol/L (3.5-5.1); SODIUM 141 mmol/L (136-145)
[2016-12-31 19:20] LABS: PREG INTERNAL NEGATIVE QC NEG CLEAR BACKGROUND; PREG INTERNAL POSITIVE QC POS CONTROL LINE
[2016-12-31 19:23] LABS: ALKALINE PHOSPHATASE 83 U/L (45-117); AST/SGOT 8 U/L (15-37)
[2016-12-31] MEDS ORDERED: ACETAMINOPHEN 500 MG TAB PO STA (20:10)
[2016-12-31] MEDS ORDERED: OPTIRAY 320 IV PRN (20:45)
--- NOTE | 2016-12-31 20:48 | DIAGNOSTIC IMAGING REPORT ---
CT ANGIOGRAPHY OF THE CHEST, PULMONARY EMBOLUS PROTOCOL CLINICAL HISTORY: Shortness of breath, chest pain, tachycardia and elevated d-dimer. COMPARISON STUDY: Chest CT September 28, 2015 and chest radiograph performed earlier today. TECHNIQUE: Following IV administration of 109 mL of Optiray-320, helical axial images of the chest were obtained utilizing the pulmonary embolus protocol. Maximal intensity projections and sagittal and coronal reformats were viewed on an independent 3D workstation. IV contrast was administered without complication. CT DOSE: 477.03 mGycm FINDINGS: No pulmonary emboli are identified although this exam is mildly compromised by motion artifact which compromises visualization of the segmental and subsegmental pulmonary arteries. The size of the heart is at the upper limits of normal. There is no evidence of thoracic aortic dissection. There is no pericardial effusion. No enlarged thoracic lymph nodes are present. Central airways are patent. Multifocal groundglass opacities with mosaic attenuation are noted within the lower lobes. There is no pneumothorax or pleural effusion. Bony thorax is unremarkable. A few left lower lobe nodules measuring up to 5 mm are unchanged since earlier exams and are benign given stability. Low attenuation bilateral adrenal nodules are unchanged and are benign. The gallbladder is surgically absent. IMPRESSION: 1. No pulmonary emboli identified although the segmental and subsegmental arteries are suboptimally assessed due to respiratory motion. 2. Bilateral lower lobe groundglass opacities with mosaic attenuation. The findings likely reflect air trapping or atelectasis. An infectious process could appear similar although is considered less likely. Electronically signed by: Keven Talamantes M.D. 12/31/2016 8:47 PM Dictated Date/Time: 12/31/2016 8:37 PM
[2016-12-31] MEDS ORDERED: KETOROLAC TROMETHAMINE 30 MG/ML VIAL IV STA (20:49)
[2016-12-31] MEDS ORDERED: HYDROmorphone INJ 0.5 MG/0.5 ML SYR IV STA (21:27)
--- NOTE | 2016-12-31 22:14 | DIAGNOSTIC IMAGING REPORT ---
BILATERAL LOWER EXTREMITY VENOUS DOPPLER CLINICAL HISTORY: Chest pain. Elevated d-dimer. Shortness of breath. COMPARISON STUDY: Bilateral lower extremity venous Doppler September 07, 2010. TECHNIQUE: Sonography of the deep venous system of the bilateral lower extremities was performed. Compression and augmentation were evaluated. FINDINGS: The bilateral common femoral, superficial femoral and popliteal veins were compressible. Augmentation was normal. Flow was shown within the deep calf vessels. IMPRESSION: No evidence of deep venous thrombus within the bilateral lower extremities. Electronically signed by: Keven Talamantes M.D. 12/31/2016 10:12 PM Dictated Date/Time: 12/31/2016 10:12 PM
[2017-01-01] MEDS ORDERED: AZITHROMYCIN 250 MG TAB PO STA (01:08)
--- NOTE | 2017-01-01 01:19 | EMERGENCY ROOM VISIT NOTE ---
History Report prepared by Mabel: Zahra Lai Under the Supervision of: Dr. Kane Bailey M.D. First contact with patient: 18:12 Chief Complaint: CHEST PAIN Stated Complaint: CHEST PAIN Nursing Triage Summary: Pt arrives to ER via ALS with c/o sudden onset chest pain approx 30-40 min ago. Pt was ambulating up steps to 2nd story apartment and reports pain began after going up stairs. Pt rates pain 9/10 radiating into the back. Pt has hx of asthma. Per EMS pt had mild bilateral exp wheezes. 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 Pt denies shortness of breath at this time. History of Present Illness The patient is a 41 year old female who presents to the Emergency Room with complaints of sudden chest pain that began 40 minutes prior to arrival. She currently rates her discomfort as a 9/10 in severity. The patient states that today she was shopping with her mother today and states that when she arrived home and walked up the steps she developed the chest pain. She states that her daughter called 911 and when the paramedics arrived, she began stuttering. The patient denies ever having stuttering in the past. She states that her pain radiates into her back. EMS reports that the patient was given 324 mg of aspirin and 1 nitro tab en-route to the emergency department. The patient reports nausea, and her daughters state that the patient vomited prior to arrival. The patient and she has been coughing. She has a history of asthma. Pt denies LOC, headache, fevers, chills, diaphoresis, visual changes, neck pain , breathing difficulties, abdominal pain, lower back pain, melena, hematochezia , urinary symptoms, numbness, weakness, lymphadenopathy, rash, or other complaints. Source of History: patient, family (daughter) Onset: 40 minutes prior to arrival Position: chest Symptom Intensity: 9/10 Quality: other (radiating) Timing: other (sudden) Note: Associated Symptoms: stuttering Review of Systems See HPI for pertinent positives and negatives. A total of ten systems were reviewed and were otherwise negative. Past Medical & Surgical Medical Problems: (1) Acute bronchitis (2) Asthma (3) section (4) Migraines (5) MORBID OBESITY (6) No Known Active Medical Problems (7) Pneumonitis (8) Pulmonary nodule Family History Cancer Diabetes mellitus FHx: COPD (chronic obstructive pulmonary disease) Heart disease Hypertension Migraine Seizures Social History Smoking Status: Current Every Day Smoker Alcohol Use: none Drug Use: none Marital Status: Housing Status: lives with family Occupation Status: disabled Current/Historical Medications Scheduled PRN Albuterol Hfa (Ventolin Hfa), 2 PUFFS INH Q4H PRN for Wheezing Albuterol Sulf (Proventil 0.083% 2.5MG/3ML), 2.5 MG NEB QID PRN for SOB/Wheezing Allergies Coded Allergies: Aspirin (Verified Allergy, Mild, HIVES, 12/08/16) CAN TOLERATE ASA 81MG DOSE BUT DEVELOPED HIVES WITH ASA 325MG DOSE Physical Exam Vital Signs Date Time Temp Pulse Resp B/P (MAP) Pulse Ox O2 Delivery O2 Flow Rate FiO2 01/01/17 00:00 75 17 95 Room Air 12/31/16 23:30 79 16 12/31/16 23:00 85 14 12/31/16 21:35 81 14 122/71 97 Room Air 12/31/16 20:19 100 20 110/82 97 Room Air 12/31/16 18:52 86 20 112/71 98 Room Air 12/31/16 17:48 101 12/31/16 17:40 95 Room Air 12/31/16 17:40 95 Room Air 12/31/16 17:40 37.2 109 17 118/91 95 Room Air Physical Exam GENERAL: Awake, alert, well-appearing, in no distress, stuttering. HENT: Normocephalic, atraumatic. Oropharynx unremarkable. EYES: Normal conjunctiva. Sclera non-icteric. PERRL, EOMI NECK: Supple. No nuchal rigidity. FROM. No JVD. RESPIRATORY: Clear to auscultation. CARDIAC: Regular rate, normal rhythm. Extremities warm and well perfused. Pulses equal. ABDOMEN: Soft, non-distended. No tenderness to palpation. No rebound or guarding. No masses. RECTAL: Deferred. MUSCULOSKELETAL: Chest examination reveals no tenderness. The back is symmetrical on inspection without obvious abnormality. There is no CVA tenderness to palpation. No joint edema. LOWER EXTREMITIES: Calves are equal size bilaterally and non-tender. No edema. No discoloration. NEURO: Normal sensorium. No sensory or motor deficits noted. No drift. Rapid alternating movements. Intermittent stuttering present. SKIN: No rash or jaundice noted. Medical Decision & Procedures ER Provider Diagnostic Interpretation: Radiology results as stated below per my review and radiologist interpretation: CHEST ONE VIEW PORTABLE CLINICAL HISTORY: Chest pain. COMPARISON STUDY: Chest radiograph September 22, 2016. FINDINGS: Lung volumes are normal. There is no pneumothorax or pleural effusion. Pulmonary vascularity is normal. Cardiac size is normal. Mediastinal contours are normal. The appearance of the chest is unchanged. IMPRESSION: No acute cardiopulmonary findings. Electronically signed by: Keven Talamantes M.D. 12/31/2016 6:34 PM Dictated Date/Time: 12/31/2016 6:[address] ANGIOGRAPHY OF THE CHEST, PULMONARY EMBOLUS PROTOCOL CLINICAL HISTORY: Shortness of breath, chest pain, tachycardia and elevated d-dimer. COMPARISON STUDY: Chest CT September 28, 2015 and chest radiograph performed earlier today. TECHNIQUE: Following IV administration of 109 mL of Optiray-320, helical axial images of the chest were obtained utilizing the pulmonary embolus protocol. Maximal intensity projections and sagittal and coronal reformats were viewed on an independent 3D workstation. IV contrast was administered without complication. CT DOSE: 477.03 mGycm FINDINGS: No pulmonary emboli are identified although this exam is mildly compromised by motion artifact which compromises visualization of the segmental and subsegmental pulmonary arteries. The size of the heart is at the upper limits of normal. There is no evidence of thoracic aortic dissection. There is no pericardial effusion. No enlarged thoracic lymph nodes are present. Central airways are patent. Multifocal groundglass opacities with mosaic attenuation are noted within the lower lobes. There is no pneumothorax or pleural effusion. Bony thorax is unremarkable. A few left lower lobe nodules measuring up to 5 mm are unchanged since earlier exams and are benign given stability. Low attenuation bilateral adrenal nodules are unchanged and are benign. The gallbladder is surgically absent. IMPRESSION: 1. No pulmonary emboli identified although the segmental and subsegmental arteries are suboptimally assessed due to respiratory motion. 2. Bilateral lower lobe groundglass opacities with mosaic attenuation. The findings likely reflect air trapping or atelectasis. An infectious process could appear similar although is considered less likely. Electronically signed by: Keven Talamantes M.D. 12/31/2016 8:47 PM Dictated Date/Time: 12/31/2016 8:37 PM BILATERAL LOWER EXTREMITY VENOUS DOPPLER CLINICAL HISTORY: Chest pain. Elevated d-dimer. Shortness of breath. COMPARISON STUDY: Bilateral lower extremity venous Doppler September 07, 2010. TECHNIQUE: Sonography of the deep venous system of the bilateral lower extremities was performed. Compression and augmentation were evaluated. FINDINGS: The bilateral common femoral, superficial femoral and popliteal veins were compressible. Augmentation was normal. Flow was shown within the deep calf vessels. IMPRESSION: No evidence of deep venous thrombus within the bilateral lower extremities. Electronically signed by: Keven Talamantes M.D. 12/31/2016 10:12 PM Dictated Date/Time: 12/31/2016 10:12 PM Laboratory Results 12/31/16 18:20 Red Blood Count 4.51, Mean Corpuscular Volume 88.9, Mean Corpuscular Hemoglobin 30.2, Mean Corpuscular Hemoglobin Concent 33.9, Mean Platelet Volume 10.7, Neutrophils (%) (Auto) 75.2, Lymphocytes (%) (Auto) 17.9, Monocytes (%) (Auto) 5.2, Eosinophils (%) (Auto) 1.2, Basophils (%) (Auto) 0.4, Neutrophils # (Auto) 7.36, Lymphocytes # (Auto) 1.75, Monocytes # (Auto) 0.51, Eosinophils # (Auto) 0.12, Basophils # (Auto) 0.04 12/31/16 18:20 Test 12/31/16 18:20 12/31/16 18:24 12/31/16 21:11 White Blood Count 9.79 K/uL (4.8-10.8) Red Blood Count 4.51 M/uL (4.2-5.4) Hemoglobin 13.6 g/dL (12.0-16.0) Hematocrit 40.1 % (37-47) Mean Corpuscular Volume 88.9 fL (80-100) Mean Corpuscular Hemoglobin 30.2 pg (25-34) Mean Corpuscular Hemoglobin Concent 33.9 g/dl (32-36) Platelet Count 216 K/uL (130-400) Mean Platelet Volume 10.7 fL (7.4-10.4) Neutrophils (%) (Auto) 75.2 % Lymphocytes (%) (Auto) 17.9 % Monocytes (%) (Auto) 5.2 % Eosinophils (%) (Auto) 1.2 % Basophils (%) (Auto) 0.4 % Neutrophils # (Auto) 7.36 K/uL (1.4-6.5) Lymphocytes # (Auto) 1.75 K/uL (1.2-3.4) Monocytes # (Auto) 0.51 K/uL (0.11-0.59) Eosinophils # (Auto) 0.12 K/uL (0-0.5) Basophils # (Auto) 0.04 K/uL (0-0.2) RDW Standard Deviation 46.2 fL (36.4-46.3) RDW Coefficient of Variation 14.1 % (11.5-14.5) Immature Granulocyte % (Auto) 0.1 % Immature Granulocyte # (Auto) 0.01 K/uL (0.00-0.02) Anion Gap 8.0 mmol/L (3-11) Est Creatinine Clear Calc Drug Dose 129.1 ml/min Estimated GFR () 129.0 Estimated GFR (Non- 111.3 BUN/Creatinine Ratio 9.8 (10-20) Calcium Level 8.8 mg/dl (8.5-10.1) Total Bilirubin 0.3 mg/dl (0.2-1) Direct Bilirubin < 0.1 mg/dl (0-0.2) Aspartate Amino Transf (AST/SGOT) 8 U/L (15-37) Alanine Aminotransferase (ALT/SGPT) 16 U/L (12-78) Alkaline Phosphatase 83 U/L (45-117) Total Creatine Kinase 45 U/L (26-192) Creatine Kinase MB < 0.5 ng/ml (0.5-3.6) Creatine Kinase MB Ratio (0-3.0) Total Protein 7.0 gm/dl (6.4-8.2) Albumin 3.3 gm/dl (3.4-5.0) Lipase 464 U/L (73-393) Human Chorionic Gonadotropin, Qual NEG (NEG) Bedside D-Dimer > 450 ng/mlFEU (0-450) Bedside Troponin I < 0.030 ng/ml (0-0.045) Laboratory results reviewed by me Medications Administered Medications (Trade) Dose Ordered Sig/Chidi Route Start Time Stop Time Status Last Admin Dose Admin Lorazepam (Ativan Inj) 1 mg NOW STAT IV 12/31/16 18:37 12/31/16 18:38 DC 12/31/16 18:37 1 MG Albuterol/ Ipratropium (Duoneb) 3 ml NOW STAT INH 12/31/16 18:37 12/31/16 18:38 DC 12/31/16 18:37 3 ML Acetaminophen (Tylenol Tab) 1,000 mg NOW STAT PO 12/31/16 20:10 12/31/16 20:11 DC 12/31/16 20:19 1,000 MG Ketorolac Tromethamine (Toradol Inj) 30 mg NOW STAT IV 12/31/16 20:49 12/31/16 20:50 DC 12/31/16 20:59 30 MG Hydromorphone HCl (Dilaudid Inj) 0.5 mg NOW STAT IV 12/31/16 21:27 12/31/16 21:28 DC 12/31/16 21:35 0.5 MG ECG Indication: chest pain Rate (beats per minute): 98 Rhythm: normal sinus Findings: no acute ischemic change, prolonged QT, no ectopy Change: Repeat EKG: normal sinus rhythm 88 beats per minute, no acute ischemia, no ectopy. ED Course 1833: The patient was evaluated in room C3. A complete history and physical exam was performed. 1836: Ordered DuoNeb 3 ml INH, Ativan Inj 1 mg IV. 1938: I reevaluated the patient and she is resting comfortably. 2009: Ordered Tylenol Tab 1000 mg PO. 2048: Ordered Toradol Inj 30 mg IV. 2126: Ordered Dilaudid Inj 0.5 mg IV. 2248: I reevaluated the patient and she is resting, noting that she is feeling better, but still has a speech impediment. I discussed all the exam findings with her and I discussed the treatment plan. The patients case will with Neurology. 2303: I discussed the patients case with Dr. Gregg, Neurology. He states that the patient should have MRI imaging. 2308: Ordered Ativan Inj 1 mg IV. 2311: I reevaluated the patient and she is resting. I discussed the treatment plan with her and she verbalized complete understanding and agreement. Medical Decision Medication Reconciliation: I attest that I have personally reviewed the patient' s current medication list Patient was found to have a slightly elevated blood pressure due to circumstances. I do not believe that the patient requires hypertension monitoring. Triage Nursing notes reviewed. The patient's presentation and history were concerning for chest pain, breathing difficulty, and stuttering. Etiologies such as Pleurisy, asthma exacerbation, cardiac ischemia, aortic dissection, pulmonary embolism, pneumonia, pneumothorax, musculoskeletal, infections, gastrointestinal, neurologic, CVA, TIA, psychogenic, as well as others were entertained. The patient was evaluated. Chest x-ray was performed and did not reveal any evidence of acute findings. The patient seemed somewhat anxious. She was given a dose of Ativan and a DuoNeb. Blood work was obtained. ECG was nonischemic. Her CBC and chemistry panel were unremarkable. Cardiac markers are negative. The patient had a d-dimer performed and this was mildly elevated. Because of this CT imaging of the chest was ordered. The chest CT revealed the findings as above. The patient was reassessed frequent. She was given Tylenol and Toradol for her discomfort which seemed to help. She had some improvement in her stuttering but was concerned as this was a new finding that she has never experienced before. The patient underwent ultrasound imaging of her legs and there was no evidence of clot. There was some congestion noted on CT imaging. There is no obvious clots noted however there was some respiratory motion degradation of her CT imaging. The patient was treated with Zithromax. Because the patient had this stuttering the patient had a consultation placed with Dr. Gregg of neurology. He recommended MR imaging and this was ordered. He felt that the MR imaging was negative that the patient could go home for follow-up but if this showed any abnormalities or ischemia then she would need admission to the hospital. The patient was given a dose of Ativan prior to MR imaging. As the patient's MRI is still pending her case was signed out to Dr. Fonseca at the change of shift. Consults Time Called: 2252 Consulting Physician: Dr. Gregg, Neurology Returned Call: [phone] I discussed the patients case with Dr. Gregg, Neurology. He states that the patient should have MRI imaging. Impression Primary Impression: Left sided chest pain Additional Impressions: Stuttering Pneumonitis History of asthma Scribe Attestation The scribe's documentation has been prepared under my direction and personally reviewed by me in its entirety. I confirm that the note above accurately reflects all work, treatment, procedures, and medical decision making performed by me. Departure Information Dispostion Still a Patient Referrals Jaime Jamison M.D. (PCP) Patient Instructions [facility] Problem Qualifiers
[2017-01-01] MEDS ORDERED: GADAVIST IV PRN (02:45)
[2017-01-01] MEDS ORDERED: AZITHROMYCIN 250 MG TAB ONE (03:17)
--- NOTE | 2017-01-01 04:42 | EMERGENCY ROOM VISIT NOTE ---
ED Visit Note First contact with patient: 01:27 This case was signed out to me at change of shift awaiting results of an MRI/ MRA of the brain and neck. 0330: The patient is sound asleep. We are awaiting the results of the MRI. 0441: The patient underwent MRI head, MRA head, and MRA neck. These were interpreted by stat read as normal. I reviewed the findings with the patient. She stated that she was feeling better. There was some concern on her CT scan of the chest that she may have a pneumonitis. With her history of tobacco abuse , I'll start her on Zithromax. I've asked to follow-up with her PCP and with Dr. Gregg.
[2017-01-01] MEDS ORDERED: AZITTAB PO (04:44)
[2017-01-01 04:57] VITALS: BP 114/71; PULSE 81; O2SAT 99
--- NOTE | 2017-01-01 06:28 | DIAGNOSTIC IMAGING REPORT ---
MRI OF THE BRAIN WITHOUT AND WITH IV CONTRAST CLINICAL HISTORY: Eval for ischemia, dissection trauma. Mental status change. COMPARISON STUDY: No previous studies for comparison. TECHNIQUE: Utilizing a 1.5 Radha magnet and dedicated coil, multiplanar, multiecho imaging of the brain was performed pre and postcontrast administration. IV administration of 9.3 mL of Gadavist contrast was uneventful. FINDINGS: Signal characteristics on diffusion-weighted images are unremarkable. No acute ischemic event. Signal characteristics of the cerebellar as well as cerebral hemispheres are unremarkable. The ventricular system is midline. Sella and parasellar regions are within normal limits. No significant postcontrast enhancement. IMPRESSION: Limited but essentially negative study. Patient motion degrades images Electronically signed by: Kaleb Rivas M.D. 01/01/2017 6:27 AM Dictated Date/Time: 01/01/2017 6:25 AM
--- NOTE | 2017-01-01 07:07 | DIAGNOSTIC IMAGING REPORT ---
MR ANGIOGRAM OF THE BRAIN CLINICAL HISTORY: Atypical chest pain. COMPARISON STUDY: MRI of the brain performed concurrently on 01/01/2017. TECHNIQUE: 3-D [id number] MR angiography of the intracranial circulation is performed. 3-D tumble views are created and assessed. IV contrast was not administered for this examination. The Examination is modestly degraded by motion artifact. FINDINGS: The internal carotid arteries are widely patent bilaterally, as are the anterior and middle cerebral arteries. The vertebrobasilar system and posterior cerebral arteries are widely patent. The vertebral arteries are codominant. There is no aneurysm, high-grade stenosis, or focal vessel cutoff seen throughout the intracranial circulation. The brain parenchyma is normal as visualized. IMPRESSION: Unremarkable MR angiogram of the brain. Electronically signed by: Juan Jose Casarez M.D. 01/01/2017 7:06 AM Dictated Date/Time: 01/01/2017 7:01 AM
--- NOTE | 2017-01-01 07:31 | DIAGNOSTIC IMAGING REPORT ---
MRA NECK COMBO CLINICAL HISTORY: 41-year-old female presents with chest pain and mental status changes. Concern for possible ischemia. COMPARISON STUDY: Brain MRI and brain MRA of same day. TECHNIQUE: Axial 3D [id number] MR angiography of the neck is performed. Subsequently, following the IV administration of 9.3 cc of Magnevist coronal MR angiogram of the neck was performed to corroborate the findings. 3-D reformats are created and assessed. All measurements were calculated based on NASCET criteria. FINDINGS: The large [id number] localizer images demonstrate no gross abnormality of the neck or chest. Patient motion moderately degrades the study. Within the limitations of the study, the bilateral common and internal carotid arteries appear normal. The imaged bilateral vertebral arteries appear to be codominant, patent and within normal limits. Apparent multifocal narrowing of the right mid subclavian artery as seen on image 39 of series 1601 is thought to be artifactual. There is no high-grade stenosis, aneurysm or proximal branch occlusion identified. IMPRESSION: 1. Moderately limited study secondary to patient motion. 2. No high-grade stenosis, aneurysm or proximal branch occlusion identified. 3. Apparent multifocal narrowing of the mid right subclavian artery is thought to be artifactual. The above report was generated using voice recognition software. It may contain grammatical, syntax or spelling errors. Electronically signed by: Nicolas Lacey M.D. 01/01/2017 7:30 AM Dictated Date/Time: 01/01/2017 7:21 AM
== END 2017-01-01 04:58 | disposition home or self-care (01) ==
LOC: EDBD 17:35 → C.EDC 17:36 → C.EDA 01-01 04:58
DX: R07.9 Chest pain, unspecified (principal); F80.81 Childhood onset fluency disorder; J18.9 Pneumonia, unspecified organism; J45.909 Unspecified asthma, uncomplicated; F17.200 Nicotine dependence, unspecified, uncomplicated; Z88.6 Allergy status to analgesic agent; Z80.9 Family history of malignant neoplasm, unspecified; Z83.3 Family history of diabetes mellitus; Z82.49 Family history of ischemic heart disease and other diseases of the circulatory system; Z82.0 Family history of epilepsy and other diseases of the nervous system

== ENCOUNTER 2017-02-03 18:25 | Emergency (ER) | payer OTHER ==
[~2017-02-03] VITALS: Ht 165.1 cm; Wt 100.5 kg
[~2017-02-03 18:25] MED LIST changes: -HYDR-5688 PO
[2017-02-03] MEDS ORDERED: KETOROLAC TROMETHAMINE 30 MG/ML VIAL IV STA (18:36)
[2017-02-03] MEDS ORDERED: ONDANSETRON INJ 2 MG/ML 2 ML VIAL IV STA (18:38)
[2017-02-03 18:41] VITALS: TEMP 36.8; Ht 165.1 cm; Wt 100.5 kg
--- NOTE | 2017-02-03 19:11 | DIAGNOSTIC IMAGING REPORT ---
CHEST ONE VIEW PORTABLE CLINICAL HISTORY: Atypical chest pain COMPARISON STUDY: 12/31/2016 FINDINGS: The cardiac and mediastinal contours are normal. There is no evidence of focal pulmonary consolidation. There is no evidence of failure. No pleural effusions are visualized.[ IMPRESSION: No active disease in the chest. Electronically signed by: Kapil Hess M.D. 02/03/2017 7:10 PM Dictated Date/Time: 02/03/2017 7:10 PM
[2017-02-03 19:28] LABS: BASO % 0.9 %; BASO ABS # 0.07 K/uL (0-0.2); COMPLETE YES; EOS % 3.8 %; HEMATOCRIT 40.4 % (37-47); IG% 0.1 %; LYMPH ABS # 2.28 K/uL (1.2-3.4); MEAN CELL VOLUME 91.8 fL (80-100); MEAN CORPUSCULAR HEMOGLOBIN 29.5 pg (25-34); MEAN CORPUSCULAR HGB CONC 32.2 g/dl (32-36); MEAN PLATELET VOLUME 10.8 fL (7.4-10.4); MONO % 5.3 %; NEUT % 60.9 %; PLATELET COUNT 191 K/uL (130-400); WHITE BLOOD COUNT 7.87 K/uL (4.8-10.8)
[2017-02-03 19:38] LABS: BLOOD UREA NITROGEN 6 mg/dl (7-18); BUN/CREATININE RATIO 9.5 (10-20); CALCIUM 8.5 mg/dl (8.5-10.1); CARBON DIOXIDE 26 mmol/L (21-32); CHLORIDE 110 mmol/L (98-107); CREATININE 0.62 mg/dl (0.60-1.20); GLUCOSE 104 mg/dl (70-99); POTASSIUM 4.1 mmol/L (3.5-5.1); SODIUM 141 mmol/L (136-145)
[2017-02-03 20:17] VITALS: BP 111/74; PULSE 76; O2SAT 98
--- NOTE | 2017-02-03 20:46 | EMERGENCY ROOM VISIT NOTE ---
History Report prepared by Mabel: Remberto Colon Under the Supervision of: Dr. Bright Pace D.O. First contact with patient: 18:28 Stated Complaint: CHEST PAIN History of Present Illness The patient is a 41 year old female who presents to the Emergency Room via EMS with complaints of sharp left sided chest pain 1 hour ago. She rates her pain a 7/10 in severity. This has happened to the patient before, but never this sharp. Her pain worsens with a deep breath. If the patient does not breath, she does not have the pain. Her pain radiates down her left arm. She is currently feeling nauseated and has a headache. She denies any swelling of her legs, history of cancer, recent surgery, hemoptysis, recent travel, or control. She received Nitroglycerin en route via EMS but this gave her a headache and did not help the pain. She has a past medical history of asthma. The patient also received a CTA of her chest on December 31, 2016. It was negative for PE's and dissection. Source of History: patient Onset: 1 hour ago Position: chest (left) Symptom Intensity: 7/10 Quality: sharp Timing: intermittent Modifying Factors (Worsening): breathing Associated Symptoms: + headache, + nausea Note: She denies any swelling in her legs. Review of Systems See HPI for pertinent positives & negatives. A total of 10 systems reviewed and were otherwise negative. Past Medical & Surgical Medical Problems: (1) Acute bronchitis (2) Asthma (3) section (4) Migraines (5) MORBID OBESITY (6) No Known Active Medical Problems (7) Pneumonitis (8) Pulmonary nodule Family History Cancer Diabetes mellitus FHx: COPD (chronic obstructive pulmonary disease) Heart disease Hypertension Migraine Seizures Social History Smoking Status: Current Every Day Smoker Alcohol Use: none Drug Use: none Marital Status: Housing Status: lives with family Occupation Status: disabled Current/Historical Medications Scheduled PRN Albuterol Hfa (Ventolin Hfa), 2 PUFFS INH Q4H PRN for Wheezing Albuterol Sulf (Proventil 0.083% 2.5MG/3ML), 2.5 MG NEB QID PRN for SOB/Wheezing Allergies Coded Allergies: Aspirin (Verified Allergy, Mild, HIVES, 12/08/16) CAN TOLERATE ASA 81MG DOSE BUT DEVELOPED HIVES WITH ASA 325MG DOSE Physical Exam Vital Signs Date Time Temp Pulse Resp B/P (MAP) Pulse Ox O2 Delivery O2 Flow Rate FiO2 02/03/17 20:17 76 18 111/74 98 02/03/17 18:41 36.8 86 18 116/73 97 Room Air 02/03/17 18:41 96 Room Air 02/03/17 18:39 84 Physical Exam GENERAL: alert, anxious appearing, well nourished, no distress, non-toxic, sitting up in bed, disheveled. EYE EXAM: normal conjunctiva OROPHARYNX: no exudate, no erythema, lips, buccal mucosa, and tongue normal and mucous membranes are moist NECK: supple, no nuchal rigidity, no adenopathy, non-tender LUNGS: Faint wheezing bilaterally. Normal chest wall mechanics HEART: no murmurs, S1 normal and S2 normal CHEST: Reproducible anterior chest wall tenderness. ABDOMEN: abdomen soft, non-tender, normo-active bowel sounds, no masses, no rebound or guarding. BACK: Back is symmetrical on inspection and there is no deformity, no midline tenderness, no CVA tenderness. SKIN: no rashes and no bruising UPPER EXTREMITIES: upper extremities are grossly normal. Radial pulses are equal bilateral LOWER EXTREMITIES: No pitting edema. Calves equal bilaterally. NEURO EXAM: Normal sensorium, cranial nerves II-XII grossly intact, normal speech, no gross weakness of arms, no gross weakness of legs. Medical Decision & Procedures ER Provider Diagnostic Interpretation: Radiology results as stated below per my review and the radiologist's interpretation: CHEST ONE VIEW PORTABLE CLINICAL HISTORY: Atypical chest pain COMPARISON STUDY: 12/31/2016 FINDINGS: The cardiac and mediastinal contours are normal. There is no evidence of focal pulmonary consolidation. There is no evidence of failure. No pleural effusions are visualized.[ IMPRESSION: No active disease in the chest. Electronically signed by: Kapil Hess M.D. 02/03/2017 7:10 PM Dictated Date/Time: 02/03/2017 7:10 PM Laboratory Results 02/03/17 19:12 Red Blood Count 4.40, Mean Corpuscular Volume 91.8, Mean Corpuscular Hemoglobin 29.5, Mean Corpuscular Hemoglobin Concent 32.2, Mean Platelet Volume 10.8, Neutrophils (%) (Auto) 60.9, Lymphocytes (%) (Auto) 29.0, Monocytes (%) (Auto) 5.3, Eosinophils (%) (Auto) 3.8, Basophils (%) (Auto) 0.9, Neutrophils # (Auto) 4.79, Lymphocytes # (Auto) 2.28, Monocytes # (Auto) 0.42, Eosinophils # (Auto) 0.30, Basophils # (Auto) 0.07 02/03/17 19:12 Test 02/03/17 19:12 White Blood Count 7.87 K/uL (4.8-10.8) Red Blood Count 4.40 M/uL (4.2-5.4) Hemoglobin 13.0 g/dL (12.0-16.0) Hematocrit 40.4 % (37-47) Mean Corpuscular Volume 91.8 fL (80-100) Mean Corpuscular Hemoglobin 29.5 pg (25-34) Mean Corpuscular Hemoglobin Concent 32.2 g/dl (32-36) Platelet Count 191 K/uL (130-400) Mean Platelet Volume 10.8 fL (7.4-10.4) Neutrophils (%) (Auto) 60.9 % Lymphocytes (%) (Auto) 29.0 % Monocytes (%) (Auto) 5.3 % Eosinophils (%) (Auto) 3.8 % Basophils (%) (Auto) 0.9 % Neutrophils # (Auto) 4.79 K/uL (1.4-6.5) Lymphocytes # (Auto) 2.28 K/uL (1.2-3.4) Monocytes # (Auto) 0.42 K/uL (0.11-0.59) Eosinophils # (Auto) 0.30 K/uL (0-0.5) Basophils # (Auto) 0.07 K/uL (0-0.2) RDW Standard Deviation 50.5 fL (36.4-46.3) RDW Coefficient of Variation 14.7 % (11.5-14.5) Immature Granulocyte % (Auto) 0.1 % Immature Granulocyte # (Auto) 0.01 K/uL (0.00-0.02) D-Dimer 450 ug/L FEU (0-500) Anion Gap 5.0 mmol/L (3-11) Est Creatinine Clear Calc Drug Dose 143.1 ml/min Estimated GFR () 131.6 Estimated GFR (Non- 113.6 BUN/Creatinine Ratio 9.5 (10-20) Calcium Level 8.5 mg/dl (8.5-10.1) Troponin I < 0.015 ng/ml (0-0.045) Laboratory results per my review. Medications Administered Medications (Trade) Dose Ordered Sig/Chidi Route Start Time Stop Time Status Last Admin Dose Admin Ketorolac Tromethamine (Toradol Inj) 30 mg NOW STAT IV 02/03/17 18:36 02/03/17 18:38 DC 02/03/17 19:06 30 MG Ondansetron HCl (Zofran Inj) 4 mg NOW STAT IV 02/03/17 18:38 02/03/17 18:39 DC 02/03/17 19:06 4 MG ECG Indication: chest pain Rate (beats per minute): 83 Rhythm: sinus rhythm Findings: no acute ischemic change, no ectopy, other (Normal axis, normal interval) ED Course ED COURSE: Vital signs were reviewed and showed nothing abnormal. The patients medical record was reviewed The above diagnostic studies were performed and reviewed. ED treatments and interventions as stated above. 1828: The patient was evaluated in room A9. A complete history and physical examination was performed. 1835: Ordered Toradol Inj 30 mg IV 1837: Ordered Zofran Inj 4 mg IV 2003: I evaluated the patient at this time. Her pain is gone, and she would like to go home without the second d-dimer test. I explained to her and her family at bedside the risks vs. benefits. They both understand and would like to leave. 2015: Upon reevaluation, the patient is resting. I discussed my findings with the patient and she understands and agrees with the treatment plan. The patient remained stable while under my care. The patient appeared well at the time of discharge. Medical Decision Differential diagnoses includes but is not limited to acute coronary syndrome, myocardial infarction, pericarditis, pulmonary embolus, aortic dissection, pneumonia, pneumothorax, musculoskeletal, shingles, esophageal. Patient is a 41-year-old female with past mental history of smoking and a family history of heart issues that presents the ER for left-sided chest pain which radiates to her arm associated with nausea. She gets this pain intermittently. Not associated with exertion. Pain is only present with breathing. Pain is purely pleuritic. She is a low risk for PEs and d-dimer was obtained which was negative. She is being wheezing bilateral as she has a history of asthma. EKG was unremarkable. Troponin was negative. I recommended a repeat troponin in 2 hours the patient declined. She requests to be discharged. She was discharged following informed refusal of care. Friends at bedside during the end of the conversation and I reiterated that I would like her to stay his was concerned that this could be her heart. She understood the risk as well on both left following up for refusal of care with her pain completely resolved following a dose of Toradol. The patient requested to leave. I considered this to be leaving against medical advice. I personally discussed the following with them. They currently had a medical condition of: Chest pain and I am concerned that they have ACS or other serious pathology even despite an initial negative troponin. My proposed course of evaluation and treatment and that of any consultants is: Repeat troponin and 3 hours. Benefits would include: possible diagnosis or excluding of ACS which if identified early would lead to appropriate intervention in a timely manner lessing the burden of disability and . Risks of leaving before this had been completed include: misdiagnosis, worsening illness leading up to and including prolonged or permanent disability or . Specific risks pertinent, but not all inclusive, of their current medical condition include but are not limited to: Cardiomyopathy, and disability. I also discussed alternatives including: Observation. Despite this they stated they wanted to leave and refused further evaluation, treatment, or admission at this time. They appear clinically sober, to be mentating appropriately, free from distracting injury, have controlled pain, appear to have intact insight, judgment, and reason and in my opinion have the capacity to make this decision. Specifically, they were able to verbally state back in a coherent manner their current medical condition/current diagnosis, the proposes course of treatment, and the risks, benefits, and alternatives of treatment versus leaving against medical advice. They understand that they may return to seek medical attention here at whatever time they want. I highly advised them to return to the Emergency Department immediately if they experienced any: Chest pain, reconsidered treatment a/o admission, or had any other concerns. This would be without any repercussions. I recommended they follow-up with PCP within 24 hours for further evaluation and treatment. They were discharged following informed refusal of care Medication Reconcilliation Current Medication List: was personally reviewed by me Blood Pressure Screening Patient's blood pressure: Normal blood pressure Blood pressure disposition: Did not require urgent referral Impression Primary Impression: Chest wall pain Scribe Attestation The scribe's documentation has been prepared under my direction and personally reviewed by me in its entirety. I confirm that the note above accurately reflects all work, treatment, procedures, and medical decision making performed by me. Departure Information Dispostion Home / Self-Care Referrals Jaime Jamison M.D. (PCP) Forms Call Back Authorization, HOME CARE DOCUMENTATION FORM, IMPORTANT VISIT INFORMATION Patient Instructions Chest Pain - [facility], [facility] Additional Instructions Please follow up with your primary care doctor or if you are a student, [facility] with in the next 24 hours. Any worsening of your symptoms, please return to the ED immediately. This includes any fevers greater than 100.4, worsening pain, chest pain, shortness breath, persistent nausea, vomiting, unable to eat or drink, or any other concerning signs or symptoms from your standpoint. You were evaluated in the ER on an emergent basis. Her lab work was negative I did recommend staying for an additional blood work which you declined. You must follow up with your primary care doctor within 24 hours. Any recurrence of your symptoms please return to the ER immediately.
== END 2017-02-03 20:18 | disposition home or self-care (01) ==
LOC: EDBD 18:25 → C.EDA 18:27
DX: R07.89 Other chest pain (principal); J45.909 Unspecified asthma, uncomplicated; F17.200 Nicotine dependence, unspecified, uncomplicated; Z88.6 Allergy status to analgesic agent; Z80.9 Family history of malignant neoplasm, unspecified; Z83.3 Family history of diabetes mellitus; Z82.49 Family history of ischemic heart disease and other diseases of the circulatory system; Z82.0 Family history of epilepsy and other diseases of the nervous system

== ENCOUNTER 2017-02-22 16:48 | Emergency (ER) | payer OTHER ==
[~2017-02-22] VITALS: Ht 165.1 cm; Wt 95.0 kg
[2017-02-22 16:58] VITALS: TEMP 36.8; Ht 165.1 cm; Wt 95.0 kg
[2017-02-22] MEDS ORDERED: ONDANSETRON INJ 2 MG/ML 2 ML VIAL IV STA (17:13)
[2017-02-22] MEDS ORDERED: MoRPHine SULFATE 4 MG/ML 1 ML CARP\\VIAL IV STA (17:13)
--- NOTE | 2017-02-22 17:17 | EMERGENCY ROOM VISIT NOTE ---
History First contact with patient: 17:05 Chief Complaint: SHORTNESS OF BREATH Stated Complaint: PAIN UNDER L BREAST, HARD TIME BREATHING History of Present Illness The patient is a 41 year old female who presents to the Emergency Room via private vehicle accompanied by family with complaints of "pain under left breast , hard time breathing". The patient states that 30 minutes prior to arrival, the patient was a [employer], and then began with a difficult time breathing, and then a sharp stabbing pain underneath her left breast. She notes the pain is worse with a deep breath. She rates the pain as a 0.5/10. She's never had this before. She notes that she was seen here a few weeks ago, but the pain was in the chest just inferior to the throat, and notes this is much different, and worse. She no longer has a gallbladder. She denies any previous heart history. She denies any high blood pressure, diabetes or high cholesterol. Review of Systems A complete 10-point Review of Systems was discussed with the patient, with pertinent positives and negatives listed in the History of Present Illness. All remaining Review of Systems questions can be considered negative unless otherwise specified. Past Medical/Surgical History Medical Problems: (1) Acute bronchitis (2) Asthma (3) section (4) Migraines (5) MORBID OBESITY (6) No Known Active Medical Problems (7) Pneumonitis (8) Pulmonary nodule Family History Cancer Diabetes mellitus FHx: COPD (chronic obstructive pulmonary disease) Heart disease Hypertension Migraine Seizures Social History Smoking Status: Current Every Day Smoker Alcohol Use: none Drug Use: none Marital Status: Housing Status: lives with family Occupation Status: disabled Current/Historical Medications Scheduled Albuterol Sulf (Proventil 0.083% 2.5MG/3ML), 2.5 MG INH QID Scheduled PRN Albuterol Hfa (Ventolin Hfa), 2 PUFFS INH Q4H PRN for Wheezing Albuterol Sulf (Proventil 0.083% 2.5MG/3ML), 2.5 MG NEB QID PRN for SOB/Wheezing Physical Exam Vital Signs Date Time Temp Pulse Resp B/P (MAP) Pulse Ox O2 Delivery O2 Flow Rate FiO2 02/22/17 19:21 80 19 110/71 98 Room Air 02/22/17 18:06 87 20 120/79 98 Room Air 9/2/17 18:00 98 Room Air 02/22/17 17:25 98 Room Air 02/22/17 17:16 83 02/22/17 16:58 36.8 95 20 136/92 96 Room Air Physical Exam VITAL SIGNS - Vital signs and nursing notes were reviewed. Patient is afebrile , normotensive, non-tachycardic and is saturating well on room air 96%. GENERAL -41-year-old female appearing her stated age who is in no acute distress. Communicates well with provider and answers questions appropriately. SKIN - Without rashes. No petechial rashes. HEAD - NC/AT. EYES - Sclera anicteric. EARS - No deformities of external structures noted on gross examination bilaterally. NOSE - Midline and without cyanosis. No epistaxis or purulent drainage noted. MOUTH/OROPHARYNX - Without perioral cyanosis. Very poor dentition noted. NECK - Neck with FROM. Supple to palpation. No lymphadenopathy noted. No nuchal rigidity. LUNGS - Chest wall symmetric without accessory muscle use, intercostals retractions, or central cyanosis. Normal vesicular breath sounds CTA B/L. No wheezes, rales, or rhonchi appreciated. CARDIAC - RRR with S1/S2. No murmur, rubs, or gallops appreciated. There is left anterior inferior rib tenderness to palpation. ABDOMEN - Abdominal contour without pulsations or visible masses. BS normoactive all four quadrants. No tenderness, palpable masses, hepatosplenomegaly, or ascites noted. EXTREMITIES - No clubbing or peripheral cyanosis. No pretibial edema present. + 5/5 strength noted in UE/LE bilaterally. NEUROLOGIC - Cranial nerves II through XII grossly intact. PSYCH - A&O. Pt is very pleasant and interacts well with examiner. Medical Decision & Procedures ER Provider Diagnostic Interpretation: CHEST 2 VIEWS ROUTINE HISTORY: 41 years-old Female Left anterior chest pain, worse with inspiration acute pleuritic chest pain. Pain is most pronounced on the left. No reported trauma. COMPARISON: Chest radiograph 02/03/2017 TECHNIQUE: Frontal and lateral views of the chest. FINDINGS: Cardiac silhouette is within normal limits. There is no pneumothorax, pleural effusion or focal airspace consolidation. Bones are grossly intact. Cholecystectomy clips are noted. IMPRESSION: No acute cardiopulmonary process. The above report was generated using voice recognition software. It may contain grammatical, syntax or spelling errors. Electronically signed by: Nicolas Lacey M.D. 02/22/2017 6:13 PM Dictated Date/Time: 02/22/2017 6:11 PM (CHEST FOR PE) ANGIO WITH CT DOSE: 547.16 mGy.cm HISTORY: 41 years-old Female with . Acute left anterior chest pain worse with inspiration. Pleurisy. Elevated D dimer level. TECHNIQUE: Multiple CTA images of the chest were obtained after the intravenous administration of 88 ml Optiray 320. Coronal and sagittal MIPS were obtained from the axial data set and were submitted for review. A dose lowering technique was utilized adhering to the principles of ALARA. COMPARISON: CT chest 12/31/2016. FINDINGS: CTA: Heart is normal in size without pericardial effusion. Thoracic aorta is normal in course and caliber without dissection or aneurysm. Pulmonary arterial tree is well-opacified to the level of the proximal subsegmental branches and demonstrates no focal filling defect to suggest pulmonary thromboembolic disease. CT CHEST: No dominant thyroid nodule identified. Nonspecific 1.5 x 1.0 cm left axillary lymph node is seen. There is moderate bronchial wall thickening bilaterally with scattered areas of mosaic attenuation in the bilateral lungs. Additionally, there are scattered groundglass and nodular opacities throughout the lungs with pulmonary nodules measuring up to 5 mm. No lobar airspace consolidations. No pneumothorax or pleural effusion. Prior cholecystectomy. Circumscribed low attenuating 10 mm lesion of the left hepatic lobe is unchanged suggesting cyst. Patient obesity is noted. Bones appear intact. IMPRESSION: 1. No acute aortic pathology or evidence of pulmonary thromboembolic disease. 2. Moderate bilateral multilobar distribution of bronchial wall thickening with scattered groundglass and nodular opacities is compatible with bronchitis. Associated mosaic attenuation suggests air trapping. No lobar airspace consolidation. 3. Pulmonary nodules measure up to 5 mm. Follow-up according to the guidelines below recommended. 4. Prior cholecystectomy. Please refer to below summary of Fleischner criteria recommendations for follow-up of incidental CT nodules (Eric Noyola, Guidelines for management of small pulmonary nodules detected on CT scans: A statement from the Fleischner Society, Radiology 237: [id number].) SOLID NODULES Multiple nodules size: <6 mm * Low risk patients: no routine follow-up * high risk patients: optional CT at 12 months Note: newly detected indeterminate nodule in persons 35 years of age or older. * Low risk patients: minimal or absent history of smoking and/or other known risk factors * high risk patients: history of smoking or of other known risk factors (e.g. first degree relative with lung cancer, or exposure to asbestos, radon, uranium) * if a nodule up to 8 mm is partly solid or is ground glass further follow-up is required after 24 months to exclude possible slow growing adenocarcinoma (VANESSA) The above report was generated using voice recognition software. It may contain grammatical, syntax or spelling errors. Electronically signed by: Nicolas Lacey M.D. 02/22/2017 6:58 PM Dictated Date/Time: 02/22/2017 6:48 PM Laboratory Results 02/22/17 17:20 Red Blood Count 4.96, Mean Corpuscular Volume 91.1, Mean Corpuscular Hemoglobin 30.2, Mean Corpuscular Hemoglobin Concent 33.2, Mean Platelet Volume 10.7, Neutrophils (%) (Auto) 64.2, Lymphocytes (%) (Auto) 27.7, Monocytes (%) (Auto) 4.6, Eosinophils (%) (Auto) 2.8, Basophils (%) (Auto) 0.5, Neutrophils # (Auto) 6.58, Lymphocytes # (Auto) 2.84, Monocytes # (Auto) 0.47, Eosinophils # (Auto) 0.29, Basophils # (Auto) 0.05 02/22/17 17:20 Test 02/22/17 17:20 02/22/17 17:25 02/22/17 17:35 White Blood Count 10.25 K/uL (4.8-10.8) Red Blood Count 4.96 M/uL (4.2-5.4) Hemoglobin 15.0 g/dL (12.0-16.0) Hematocrit 45.2 % (37-47) Mean Corpuscular Volume 91.1 fL (80-100) Mean Corpuscular Hemoglobin 30.2 pg (25-34) Mean Corpuscular Hemoglobin Concent 33.2 g/dl (32-36) Platelet Count 276 K/uL (130-400) Mean Platelet Volume 10.7 fL (7.4-10.4) Neutrophils (%) (Auto) 64.2 % Lymphocytes (%) (Auto) 27.7 % Monocytes (%) (Auto) 4.6 % Eosinophils (%) (Auto) 2.8 % Basophils (%) (Auto) 0.5 % Neutrophils # (Auto) 6.58 K/uL (1.4-6.5) Lymphocytes # (Auto) 2.84 K/uL (1.2-3.4) Monocytes # (Auto) 0.47 K/uL (0.11-0.59) Eosinophils # (Auto) 0.29 K/uL (0-0.5) Basophils # (Auto) 0.05 K/uL (0-0.2) RDW Standard Deviation 49.4 fL (36.4-46.3) RDW Coefficient of Variation 14.6 % (11.5-14.5) Immature Granulocyte % (Auto) 0.2 % Immature Granulocyte # (Auto) 0.02 K/uL (0.00-0.02) Anion Gap 8.0 mmol/L (3-11) Est Creatinine Clear Calc Drug Dose 136.6 ml/min Estimated GFR () 131.0 Estimated GFR (Non- 113.0 BUN/Creatinine Ratio 14.9 (10-20) Calcium Level 9.1 mg/dl (8.5-10.1) Magnesium Level 1.9 mg/dl (1.8-2.4) Total Bilirubin 0.4 mg/dl (0.2-1) Aspartate Amino Transf (AST/SGOT) 15 U/L (15-37) Alanine Aminotransferase (ALT/SGPT) 18 U/L (12-78) Alkaline Phosphatase 100 U/L (45-117) Troponin I < 0.015 ng/ml (0-0.045) Total Protein 8.1 gm/dl (6.4-8.2) Albumin 3.7 gm/dl (3.4-5.0) Globulin 4.4 gm/dl (2.5-4.0) Albumin/Globulin Ratio 0.8 (0.9-2) Thyroid Stimulating Hormone (TSH) 1.320 uIu/ml (0.300-4.500) Lyme Disease IgG Antibody NEG (NEG) Lyme Disease IgM Antibody NEG (NEG) Urine Color RED Urine Appearance TURBID (CLEAR) Urine pH 5.5 (4.5-7.5) Urine Specific [place] 1.025 (1.000-1.030) Urine Protein 2+ (NEG) Urine Glucose (UA) NEG (NEG) Urine Ketones TRACE (NEG) Urine Occult Blood 3+ (NEG) Urine Nitrite NEG (NEG) Urine Bilirubin NEG (NEG) Urine Urobilinogen NEG (NEG) Urine Leukocyte Esterase NEG (NEG) Urine RBC >30 /hpf (0-4) Urine WBC 5-10 /hpf (0-5) Urine Epithelial Cells 20-30 /lpf (0-5) Urine Bacteria NEG (NEG) Urine Test NEG (NEG) Bedside D-Dimer > 450 ng/mlFEU (0-450) Bedside Troponin I < 0.030 ng/ml (0-0.045) Medications Administered Medications (Trade) Dose Ordered Sig/Chidi Route Start Time Stop Time Status Last Admin Dose Admin Morphine Sulfate (MoRPHine SULFATE INJ) 4 mg NOW STAT IV 02/22/17 17:13 02/22/17 17:14 DC 02/22/17 17:56 4 MG Ondansetron HCl (Zofran Inj) 4 mg NOW STAT IV 02/22/17 17:13 02/22/17 17:14 DC 02/22/17 17:56 4 MG Acetaminophen (Tylenol Tab) 500 mg NOW STAT PO 02/22/17 19:15 02/22/17 19:16 DC 02/22/17 19:20 500 MG Medical Decision Patient was seen and evaluated as above. After obtaining a thorough history and physical examination IV access is initiated, and the above workup was performed. Patient presents less with acute onset left-sided anterior rib pain that is worse with deep inspiration. She is a chronic smoker since age 20. She is a history of asthma. She was seen here recently and had a thorough workup in regard to similar complaint. Testing was negative at that time. That 's an EKG reveals normal sinus rhythm, with sinus arrhythmia at 92 bpm. No ectopy or ischemic change noted. This was compared to previous, and no significant change was found. Patient's d-dimer was elevated, therefore benefit versus risk of obtaining CT scan of the chest was obtained. She denies any leg swelling, or leg pain. CT the chest was negative for PE, with results as above. Her chest x-ray was also negative. There are incidental findings, which were discussed with the patient. Likely bronchitis noted on CT. Patient became that she has run out of her nebulizers, therefore believe this is also lead to her symptoms today. I did refill these for her, and sent these to her pharmacy. She indicates that she also has a rescue inhaler. Her troponin is negative. Negative both on POC and regular lab. CBC reveals no leukocytosis or anemia. Metabolic panel reveals normal electrolytes, kidney function okay, liver function unremarkable. Urine reveals contaminants, likely secondary to her menses. Urine test negative. Urine culture pending. She has no urinary symptoms. test. At this time she appears stable for discharge , and the case was discussed with the attending physician. With the patient's EKG being normal, troponin being negative, and CT the chest not showing any PE, ACS and PE is very unlikely. She was given morphine for her pain here and notes that made it worse. She was in reevaluate, feeling much better and was given Tylenol and felt much better. There is no abdominal pain. She is to follow-up with her family doctor, particularly for the incidental findings to include but not limited to the pulmonary nodule. She is also to call here if the prescription for the nebulizer is not identical to her previous. She was educated upon worrisome symptoms which to return, had questions or discharge, and was discharged home in good condition. In evaluation treatment this patient following differential diagnoses were entertained: MA, PE, acute bronchitis, asthma exacerbation, costochondritis, pericarditis, dissection, among others. Impression Primary Impression: Acute bronchitis Departure Information Dispostion Home / Self-Care Condition GOOD Prescriptions Albuterol Sulf (PROVENTIL 0.083% 2.5MG/3ML) 2.5 Mg/3 Ml Nebu 2.5 MG INH QID, #40 EA Prov: Alex Ambrocio PA-C 02/22/17 Referrals No Doctor, Assigned (PCP) Patient Instructions My [facility] Additional Instructions You have been treated in the Emergency Department your chest pain and shortness of breath. Laboratory results and imaging studies have ruled out any emergent causes for your symptoms which would warrant admission or surgery. I have refilled her nebulizer, as I believe you're experiencing bronchitis and asthma exacerbation. Please take this as previously prescribed. If this is not the correct medication, please have the pharmacy call here and I would gladly change it for you For pain control, you can use the following [id number] medicines: - Regular strength (325mg/tab) Tylenol (acetaminophen) 2 tabs every 4-6 hours as needed. Do not exceed 12 tablets in a 24 hour period. Avoid taking more than 3 grams (3000 mg) of Tylenol per day. This includes any other sources of acetaminophen you may take on a regular basis. Drink plenty of water and stay well hydrated. As with any trip to the Emergency Department, you should follow-up with your Primary Care Provider from today's visit. Return to the emergency department if your symptoms persist despite treatment plan outlined above or if the following symptoms occur: increased fevers, chills , worsening nausea/vomiting, blood in your stool or urine. Please follow-up with her family doctor regarding the findings of the CAT scan as listed below. Please return with any new/concerning symptoms. (CHEST FOR PE) ANGIO WITH CT DOSE: 547.16 mGy.cm HISTORY: 41 years-old Female with . Acute left anterior chest pain worse with inspiration. Pleurisy. Elevated D dimer level. TECHNIQUE: Multiple CTA images of the chest were obtained after the intravenous administration of 88 ml Optiray 320. Coronal and sagittal MIPS were obtained from the axial data set and were submitted for review. A dose lowering technique was utilized adhering to the principles of ALARA. COMPARISON: CT chest 12/31/2016. FINDINGS: CTA: Heart is normal in size without pericardial effusion. Thoracic aorta is normal in course and caliber without dissection or aneurysm. Pulmonary arterial tree is well-opacified to the level of the proximal subsegmental branches and demonstrates no focal filling defect to suggest pulmonary thromboembolic disease. CT CHEST: No dominant thyroid nodule identified. Nonspecific 1.5 x 1.0 cm left axillary lymph node is seen. There is moderate bronchial wall thickening bilaterally with scattered areas of mosaic attenuation in the bilateral lungs. Additionally, there are scattered groundglass and nodular opacities throughout the lungs with pulmonary nodules measuring up to 5 mm. No lobar airspace consolidations. No pneumothorax or pleural effusion. Prior cholecystectomy. Circumscribed low attenuating 10 mm lesion of the left hepatic lobe is unchanged suggesting cyst. Patient obesity is noted. Bones appear intact. IMPRESSION: 1. No acute aortic pathology or evidence of pulmonary thromboembolic disease. 2. Moderate bilateral multilobar distribution of bronchial wall thickening with scattered groundglass and nodular opacities is compatible with bronchitis. Associated mosaic attenuation suggests air trapping. No lobar airspace consolidation. 3. Pulmonary nodules measure up to 5 mm. Follow-up according to the guidelines below recommended. 4. Prior cholecystectomy. Please refer to below summary of Fleischner criteria recommendations for follow-up of incidental CT nodules (Eric Noyola, Guidelines for management of small pulmonary nodules detected on CT scans: A statement from the Fleischner Society, Radiology 237: [phone].) SOLID NODULES Multiple nodules size: <6 mm * Low risk patients: no routine follow-up * high risk patients: optional CT at 12 months Note: newly detected indeterminate nodule in persons 35 years of age or older. * Low risk patients: minimal or absent history of smoking and/or other known risk factors * high risk patients: history of smoking or of other known risk factors (e.g. first degree relative with lung cancer, or exposure to asbestos, radon, uranium) * if a nodule up to 8 mm is partly solid or is ground glass further follow-up is required after 24 months to exclude possible slow growing adenocarcinoma (VANESSA) The above report was generated using voice recognition software. It may contain grammatical, syntax or spelling errors. Electronically signed by: Nicolas Lacey M.D. 02/22/2017 6:58 PM Dictated Date/Time: 02/22/2017 6:48 PM
[2017-02-22 17:36] LABS: BASO % 0.5 %; BASO ABS # 0.05 K/uL (0-0.2); COMPLETE YES; EOS % 2.8 %; HEMATOCRIT 45.2 % (37-47); IG% 0.2 %; LYMPH % 27.7 %; LYMPH ABS # 2.84 K/uL (1.2-3.4); MEAN CELL VOLUME 91.1 fL (80-100); MEAN CORPUSCULAR HEMOGLOBIN 30.2 pg (25-34); MEAN CORPUSCULAR HGB CONC 33.2 g/dl (32-36); MEAN PLATELET VOLUME 10.7 fL (7.4-10.4); MONO % 4.6 %; NEUT % 64.2 %; PLATELET COUNT 276 K/uL (130-400); RED BLOOD COUNT 4.96 M/uL (4.2-5.4); WHITE BLOOD COUNT 10.25 K/uL (4.8-10.8)
[2017-02-22 17:51] LABS: MANUAL MICROSCOPIC REQUIRED? YES; URINE APPEARANCE TURBID (CLEAR); URINE BILIRUBIN NEG (NEG); URINE COLOR RED; URINE NITRITE NEG (NEG); URINE PH 5.5 (4.5-7.5); URINE SPECIFIC GRAVITY 1.025 (1.000-1.030); UROBILINOGEN NEG (NEG)
[2017-02-22 17:52] LABS: BUN/CREATININE RATIO 14.9 (10-20); CALCIUM 9.1 mg/dl (8.5-10.1); CREATININE 0.63 mg/dl (0.60-1.20); MAGNESIUM 1.9 mg/dl (1.8-2.4); POTASSIUM 3.7 mmol/L (3.5-5.1)
[2017-02-22 17:52] LABS: POINT OF CARE TROPONIN I < 0.030 ng/ml (0-0.045)
[2017-02-22 17:53] LABS: REVIEW REQ? NO
[2017-02-22 17:54] LABS: PREG INTERNAL NEGATIVE QC NEG CLEAR BACKGROUND; PREG INTERNAL POSITIVE QC POS CONTROL LINE
[2017-02-22 17:59] LABS: URINE BACTERIA NEG (NEG); URINE RBC >30 /hpf (0-4)
[2017-02-22 18:00] VITALS: O2SAT 98
[2017-02-22 18:01] LABS: ZZUR CULT IF INDIC CLEAN CATCH YES
[2017-02-22 18:03] LABS: ALB/GLOB RATIO 0.8 (0.9-2); THYROID STIMULATING HORMONE 1.32 uIu/ml (0.300-4.500)
--- NOTE | 2017-02-22 18:14 | DIAGNOSTIC IMAGING REPORT ---
CHEST 2 VIEWS ROUTINE HISTORY: 41 years-old Female Left anterior chest pain, worse with inspiration acute pleuritic chest pain. Pain is most pronounced on the left. No reported trauma. COMPARISON: Chest radiograph 02/03/2017 TECHNIQUE: Frontal and lateral views of the chest. FINDINGS: Cardiac silhouette is within normal limits. There is no pneumothorax, pleural effusion or focal airspace consolidation. Bones are grossly intact. Cholecystectomy clips are noted. IMPRESSION: No acute cardiopulmonary process. The above report was generated using voice recognition software. It may contain grammatical, syntax or spelling errors. Electronically signed by: Nicolas Lacey M.D. 02/22/2017 6:13 PM Dictated Date/Time: 02/22/2017 6:11 PM
[2017-02-22 18:25] LABS: LYME DISEASE AB IGG NEG (NEG); LYME DISEASE AB IGM NEG (NEG)
[2017-02-22] MEDS ORDERED: OPTIRAY 320 IV PRN (18:45)
--- NOTE | 2017-02-22 18:59 | DIAGNOSTIC IMAGING REPORT ---
(CHEST FOR PE) ANGIO WITH CT DOSE: 547.16 mGy.cm HISTORY: 41 years-old Female with . Acute left anterior chest pain worse with inspiration. Pleurisy. Elevated D dimer level. TECHNIQUE: Multiple CTA images of the chest were obtained after the intravenous administration of 88 ml Optiray 320. Coronal and sagittal MIPS were obtained from the axial data set and were submitted for review. A dose lowering technique was utilized adhering to the principles of ALARA. COMPARISON: CT chest 12/31/2016. FINDINGS: CTA: Heart is normal in size without pericardial effusion. Thoracic aorta is normal in course and caliber without dissection or aneurysm. Pulmonary arterial tree is well-opacified to the level of the proximal subsegmental branches and demonstrates no focal filling defect to suggest pulmonary thromboembolic disease. CT CHEST: No dominant thyroid nodule identified. Nonspecific 1.5 x 1.0 cm left axillary lymph node is seen. There is moderate bronchial wall thickening bilaterally with scattered areas of mosaic attenuation in the bilateral lungs. Additionally, there are scattered groundglass and nodular opacities throughout the lungs with pulmonary nodules measuring up to 5 mm. No lobar airspace consolidations. No pneumothorax or pleural effusion. Prior cholecystectomy. Circumscribed low attenuating 10 mm lesion of the left hepatic lobe is unchanged suggesting cyst. Patient obesity is noted. Bones appear intact. IMPRESSION: 1. No acute aortic pathology or evidence of pulmonary thromboembolic disease. 2. Moderate bilateral multilobar distribution of bronchial wall thickening with scattered groundglass and nodular opacities is compatible with bronchitis. Associated mosaic attenuation suggests air trapping. No lobar airspace consolidation. 3. Pulmonary nodules measure up to 5 mm. Follow-up according to the guidelines below recommended. 4. Prior cholecystectomy. Please refer to below summary of Fleischner criteria recommendations for follow-up of incidental CT nodules (Eric Noyola, Guidelines for management of small pulmonary nodules detected on CT scans: A statement from the Fleischner Society, Radiology 237: [id number].) SOLID NODULES Multiple nodules size: <6 mm * Low risk patients: no routine follow-up * high risk patients: optional CT at 12 months Note: newly detected indeterminate nodule in persons 35 years of age or older. * Low risk patients: minimal or absent history of smoking and/or other known risk factors * high risk patients: history of smoking or of other known risk factors (e.g. first degree relative with lung cancer, or exposure to asbestos, radon, uranium) * if a nodule up to 8 mm is partly solid or is ground glass further follow-up is required after 24 months to exclude possible slow growing adenocarcinoma (VANESSA) The above report was generated using voice recognition software. It may contain grammatical, syntax or spelling errors. Electronically signed by: Nicolas Lacey M.D. 02/22/2017 6:58 PM Dictated Date/Time: 02/22/2017 6:48 PM
[2017-02-22] MEDS ORDERED: ACETAMINOPHEN 500 MG TAB PO STA (19:15)
[2017-02-22] MEDS ORDERED: ALBINS/ INH (20:15)
[2017-02-22 20:30] VITALS: BP 108/78; PULSE 86; O2SAT 96
== END 2017-02-22 20:30 | disposition home or self-care (01) ==
LOC: C.EDB 16:49 → C.EDC 20:30
DX: J40 Bronchitis, not specified as acute or chronic (principal); J45.909 Unspecified asthma, uncomplicated; Z87.01 Personal history of pneumonia (recurrent); Z87.09 Personal history of other diseases of the respiratory system; Z82.0 Family history of epilepsy and other diseases of the nervous system; Z82.49 Family history of ischemic heart disease and other diseases of the circulatory system; Z82.5 Family history of asthma and other chronic lower respiratory diseases; Z83.3 Family history of diabetes mellitus; F17.200 Nicotine dependence, unspecified, uncomplicated

== ENCOUNTER 2017-04-15 20:33 | Emergency (ER) | payer OTHER ==
[~2017-04-15] VITALS: Ht 165.1 cm; Wt 99.0 kg
[~2017-04-15 20:33] MED LIST changes: +ALBINS/ INH
[2017-04-15 20:39] VITALS: TEMP 37.1; Ht 165.1 cm; Wt 99.0 kg
[2017-04-15] MEDS ORDERED: SODIUM CHLORIDE 0.9% 500ML 500 ML IV STA (21:04)
[2017-04-15] MEDS ORDERED: SODIUM CHLORIDE 0.9% 1000ML 1,000 ML IV STA (21:04)
--- NOTE | 2017-04-15 21:15 | EMERGENCY ROOM VISIT NOTE ---
History Report prepared by Mabel: Yoana Richardson Under the Supervision of: Dr. Disha Huggins M.D. First contact with patient: 20:40 Chief Complaint: ABDOMINAL PAIN Stated Complaint: AB PAIN & LEFT ARM NUMBNESS Nursing Triage Summary: patient was in bathtub tonight when abd pain developed. has had diarrhea for 2 days. also states left arm felt "numb" for a short period. 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 The patient was in the bathtub tonight when she started having lower abdominal pain. Her left arm then went numb. She states she can feel when people touch her arm, but her arm still feels numb. Her left hand musculoskeletal physiotherapist also feels weak. Her daughter had to help her get out of the tub and get dressed. She notes she had diarrhea for the past 2 days. She last had diarrhea this morning. She denies having any blood in her stool, leg numbness, chest pain, SOB , or fever. She has a history of asthma. She smokes 0.5 ppd. She is trying to quit. She denies any chance of . 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 A total of 10 systems reviewed and were otherwise negative. Past Medical & Surgical Medical Problems: (1) Acute bronchitis (2) Asthma (3) section (4) Migraines (5) MORBID OBESITY (6) No Known Active Medical Problems (7) Pneumonitis (8) Pulmonary nodule Family History Cancer Diabetes mellitus FHx: COPD (chronic obstructive pulmonary disease) Heart disease Hypertension Migraine Seizures Social History Smoking Status: Current Every Day Smoker Alcohol Use: none Drug Use: none Marital Status: Housing Status: lives with family Occupation Status: disabled Current/Historical Medications Scheduled PRN Albuterol Hfa (Ventolin Hfa), 2 PUFFS INH Q4H PRN for Wheezing Albuterol Sulf (Proventil 0.083% 2.5MG/3ML), 2.5 MG NEB QID PRN for SOB/Wheezing Allergies Coded Allergies: Aspirin (Verified Allergy, Mild, HIVES, 02/22/17) CAN TOLERATE ASA 81MG DOSE BUT DEVELOPED HIVES WITH ASA 325MG DOSE Morphine (Verified Adverse Reaction, Intermediate, ABD PAIN, 04/15/17) Physical Exam Vital Signs Date Time Temp Pulse Resp B/P (MAP) Pulse Ox O2 Delivery O2 Flow Rate FiO2 04/15/17 23:46 77 15 91/64 98 04/15/17 23:43 77 15 91/64 98 04/15/17 22:50 89 18 105/72 97 Room Air 04/15/17 20:39 37.1 90 18 128/84 98 Room Air Physical Exam Vital signs reviewed. General: Well-appearing female, in no significant distress. HEENT: No scleral icterus, PERRLA, neck supple. Atraumatic. Cardiovascular: Regular rate and rhythm, no extra sounds. Pulmonary: Clear to auscultation bilaterally, normal work of breathing. Abdomen: Obese abdomen. Soft, mild lower abdominal tenderness, no rebound, no guarding, nondistended, positive bowel sounds. Musculoskeletal: Atraumatic, no peripheral edema. Neurologic: Patient awake alert and oriented x 3. Questionably diminished musculoskeletal physiotherapist strength in the left upper extremity. Able to lift left arm above head without difficulty. Cranial nerves 2 through 12 grossly intact. Skin: Warm, dry, no rash Medical Decision & Procedures ER Provider Diagnostic Interpretation: X-ray results as stated below per interpretation by me and the radiologist. Radiology results as stated below per my review and radiologist interpretation: CHEST ONE VIEW PORTABLE HISTORY: Left arm weakness. COMPARISON: Chest 02/22/2017. FINDINGS: The lungs are clear. Cardiac silhouette is normal in size. No pleural effusions. No pneumothorax. IMPRESSION: No acute process. Electronically signed by: Chapo Garsia M.D. 04/15/2017 9:29 PM Dictated Date/Time: 04/15/2017 9:[address]AST CT DOSE: 537.48 mGy.cm HISTORY: L arm weakness TECHNIQUE: Multiaxial CT images of the head were performed without the use of intravenous contrast. Automated exposure control was utilized for this study. A dose lowering technique was utilized adhering to the principles of ALARA. Comparison: Head CT 07/23/2014. Findings: The paranasal sinuses and mastoid air cells are clear. The calvarium and skull base are intact. The ventricles and sulci are within normal limits. There is no mass, hematoma, midline shift, or acute infarct. Impression: No acute intracranial abnormality. Electronically signed by: Chapo Garsia M.D. 04/15/2017 9:54 PM Dictated Date/Time: 04/15/2017 9:50 PM Laboratory Results 04/15/17 21:02 Red Blood Count 4.47, Mean Corpuscular Volume 89.9, Mean Corpuscular Hemoglobin 30.2, Mean Corpuscular Hemoglobin Concent 33.6, Mean Platelet Volume 10.5, Neutrophils (%) (Auto) 52.5, Lymphocytes (%) (Auto) 35.3, Monocytes (%) (Auto) 5.4, Eosinophils (%) (Auto) 6.2, Basophils (%) (Auto) 0.5, Neutrophils # (Auto) 3.86, Lymphocytes # (Auto) 2.60, Monocytes # (Auto) 0.40, Eosinophils # (Auto) 0.46, Basophils # (Auto) 0.04 04/15/17 21:02 Test 04/15/17 21:02 04/15/17 23:10 White Blood Count 7.37 K/uL (4.8-10.8) Red Blood Count 4.47 M/uL (4.2-5.4) Hemoglobin 13.5 g/dL (12.0-16.0) Hematocrit 40.2 % (37-47) Mean Corpuscular Volume 89.9 fL (80-100) Mean Corpuscular Hemoglobin 30.2 pg (25-34) Mean Corpuscular Hemoglobin Concent 33.6 g/dl (32-36) Platelet Count 186 K/uL (130-400) Mean Platelet Volume 10.5 fL (7.4-10.4) Neutrophils (%) (Auto) 52.5 % Lymphocytes (%) (Auto) 35.3 % Monocytes (%) (Auto) 5.4 % Eosinophils (%) (Auto) 6.2 % Basophils (%) (Auto) 0.5 % Neutrophils # (Auto) 3.86 K/uL (1.4-6.5) Lymphocytes # (Auto) 2.60 K/uL (1.2-3.4) Monocytes # (Auto) 0.40 K/uL (0.11-0.59) Eosinophils # (Auto) 0.46 K/uL (0-0.5) Basophils # (Auto) 0.04 K/uL (0-0.2) RDW Standard Deviation 47.2 fL (36.4-46.3) RDW Coefficient of Variation 14.3 % (11.5-14.5) Immature Granulocyte % (Auto) 0.1 % Immature Granulocyte # (Auto) 0.01 K/uL (0.00-0.02) Anion Gap 5.0 mmol/L (3-11) Est Creatinine Clear Calc Drug Dose 135.4 ml/min Estimated GFR () 129.6 Estimated GFR (Non- 111.8 BUN/Creatinine Ratio 18.5 (10-20) Calcium Level 8.7 mg/dl (8.5-10.1) Magnesium Level 2.1 mg/dl (1.8-2.4) Total Bilirubin < 0.1 mg/dl (0.2-1) Direct Bilirubin < 0.1 mg/dl (0-0.2) Aspartate Amino Transf (AST/SGOT) 12 U/L (15-37) Alanine Aminotransferase (ALT/SGPT) 17 U/L (12-78) Alkaline Phosphatase 76 U/L (45-117) Total Protein 6.9 gm/dl (6.4-8.2) Albumin 3.2 gm/dl (3.4-5.0) Lipase 163 U/L (73-393) Urine Color YELLOW Urine Appearance CLOUDY (CLEAR) Urine pH 7.5 (4.5-7.5) Urine Specific [place] 1.019 (1.000-1.030) Urine Protein NEG (NEG) Urine Glucose (UA) NEG (NEG) Urine Ketones NEG (NEG) Urine Occult Blood NEG (NEG) Urine Nitrite NEG (NEG) Urine Bilirubin NEG (NEG) Urine Urobilinogen NEG (NEG) Urine Leukocyte Esterase NEG (NEG) Urine WBC (Auto) 5-10 /hpf (0-5) Urine RBC (Auto) 5-10 /hpf (0-4) Urine Hyaline Casts (Auto) 1-5 /lpf (0-5) Urine Epithelial Cells (Auto) >30 /lpf (0-5) Urine Bacteria (Auto) 1+ (NEG) Laboratory results per my review. Medications Administered Medications (Trade) Dose Ordered Sig/Chidi Route Start Time Stop Time Status Last Admin Dose Admin Sodium Chloride 500 ml @ 999 mls/hr Q31M STAT IV 04/15/17 21:04 04/15/17 21:34 DC 04/15/17 21:04 999 MLS/HR Sodium Chloride 1,000 ml @ 125 mls/hr Q8H STAT IV 04/15/17 21:04 04/16/17 00:15 DC 04/15/17 21:04 125 MLS/HR ECG Indication: weakness Rate (beats per minute): 76 Rhythm: sinus with SA Findings: no acute ischemic change, no ectopy ED Course 2100: Past medical records reviewed. The patient was evaluated in room A10. A complete history and physical examination was performed. 2103: NSS 1000 ml @ 125 mls/hr IV, NSS 500 ml @ 999 mls/hr IV. 2308: I reevaluated the patient. She remembered that she fell asleep on her arm in the tub, causing it to become numb. I discussed findings with her. She verbalized agreement of the treatment plan. She was discharged home. Medical Decision Differential diagnosis: Etiologies such as metabolic, infection, hypo/hyperglycemia, electrolyte abnormalities, cardiac sources, intracerebral event, toxicologic, neurologic, as well as others were entertained. This patient was evaluated and appeared to be in no significant distress. Physical examination reveals a mild musculoskeletal physiotherapist strength deficit in the left hand. Patient is able to lift the arm above her head without difficulty. She has adequate biceps and triceps strength. Physical examination is otherwise unrevealing. CT scan of the head is negative. Laboratory work is unrevealing. On further questioning, patient states that she fell asleep sitting upright leaning against her left palm. She had her left arm in a bent position just prior to the onset of the symptoms. I suspect that this is a peripheral nerve issue, not a TIA. The patient has full strength and range of motion in the left upper extremity at this time. Patient was advised to follow-up with her PCP and to return to the ER for worsening of symptoms or any medical concerns. Medication Reconcilliation Current Medication List: was personally reviewed by me Blood Pressure Screening Patient's blood pressure: Normal blood pressure Blood pressure disposition: Did not require urgent referral Impression Primary Impression: LUE numbness Scribe Attestation The scribe's documentation has been prepared under my direction and personally reviewed by me in its entirety. I confirm that the note above accurately reflects all work, treatment, procedures, and medical decision making performed by me. Departure Information Dispostion Home / Self-Care Referrals Jaime Jamison M.D. Forms Call Back Authorization, HOME CARE DOCUMENTATION FORM, IMPORTANT VISIT INFORMATION Patient Instructions My [facility] Additional Instructions Diagnosis: Left Upper Extremity numbness Avoid sleeping in unusual positions. Ibuprofen 600 mg every 6 hours as needed for pain with food. Follow up with your doctor this week for reevaluation. Return to the ED for worsening of symptoms or any medical concerns.
[2017-04-15 21:19] LABS: BASO % 0.5 %; BASO ABS # 0.04 K/uL (0-0.2); COMPLETE YES; EOS % 6.2 %; HEMATOCRIT 40.2 % (37-47); IG% 0.1 %; LYMPH % 35.3 %; MEAN CELL VOLUME 89.9 fL (80-100); MEAN CORPUSCULAR HEMOGLOBIN 30.2 pg (25-34); MEAN CORPUSCULAR HGB CONC 33.6 g/dl (32-36); MEAN PLATELET VOLUME 10.5 fL (7.4-10.4); MONO % 5.4 %; NEUT % 52.5 %; PLATELET COUNT 186 K/uL (130-400); RED BLOOD COUNT 4.47 M/uL (4.2-5.4); WHITE BLOOD COUNT 7.37 K/uL (4.8-10.8)
--- NOTE | 2017-04-15 21:31 | DIAGNOSTIC IMAGING REPORT ---
CHEST ONE VIEW PORTABLE HISTORY: Left arm weakness. COMPARISON: Chest 02/22/2017. FINDINGS: The lungs are clear. Cardiac silhouette is normal in size. No pleural effusions. No pneumothorax. IMPRESSION: No acute process. Electronically signed by: Chapo Garsia M.D. 04/15/2017 9:29 PM Dictated Date/Time: 04/15/2017 9:27 PM
[2017-04-15 21:40] LABS: ALT/SGPT 17 U/L (12-78); BLOOD UREA NITROGEN 12 mg/dl (7-18); BUN/CREATININE RATIO 18.5 (10-20); CALCIUM 8.7 mg/dl (8.5-10.1); CARBON DIOXIDE 26 mmol/L (21-32); CHLORIDE 109 mmol/L (98-107); CREATININE 0.65 mg/dl (0.60-1.20); GLUCOSE 102 mg/dl (70-99); MAGNESIUM 2.1 mg/dl (1.8-2.4); POTASSIUM 3.7 mmol/L (3.5-5.1); SODIUM 140 mmol/L (136-145)
[2017-04-15 21:42] LABS: ALKALINE PHOSPHATASE 76 U/L (45-117); AST/SGOT 12 U/L (15-37)
--- NOTE | 2017-04-15 21:56 | DIAGNOSTIC IMAGING REPORT ---
HEAD CT NONCONTRAST CT DOSE: 537.48 mGy.cm HISTORY: L arm weakness TECHNIQUE: Multiaxial CT images of the head were performed without the use of intravenous contrast. Automated exposure control was utilized for this study. A dose lowering technique was utilized adhering to the principles of ALARA. Comparison: Head CT 07/23/2014. Findings: The paranasal sinuses and mastoid air cells are clear. The calvarium and skull base are intact. The ventricles and sulci are within normal limits. There is no mass, hematoma, midline shift, or acute infarct. Impression: No acute intracranial abnormality. Electronically signed by: Chapo Garsia M.D. 04/15/2017 9:54 PM Dictated Date/Time: 04/15/2017 9:50 PM
[2017-04-15 23:46] VITALS: BP 91/64; PULSE 77; O2SAT 98
[2017-04-15 23:50] LABS: URINE APPEARANCE CLOUDY (CLEAR); URINE BILIRUBIN NEG (NEG); URINE COLOR YELLOW; URINE EPITHELIAL CELL AUTO >30 /lpf (0-5); URINE NITRITE NEG (NEG); URINE PH 7.5 (4.5-7.5); URINE SPECIFIC GRAVITY 1.019 (1.000-1.030); UROBILINOGEN NEG (NEG); ZZUR CULT IF INDIC CLEAN CATCH YES
[2017-04-15 23:51] LABS: MANUAL MICROSCOPIC REQUIRED? NO; REVIEW REQ? NO
== END 2017-04-15 23:48 | disposition home or self-care (01) ==
LOC: EDBD 20:33 → C.EDA 20:34
DX: R20.0 Anesthesia of skin (principal); R10.9 Unspecified abdominal pain; E66.01 Morbid (severe) obesity due to excess calories; F17.210 Nicotine dependence, cigarettes, uncomplicated; J45.909 Unspecified asthma, uncomplicated

== ENCOUNTER 2017-06-22 10:50 | Emergency (ER) | payer OTHER ==
[~2017-06-22] VITALS: Ht 165.1 cm; Wt 93.8 kg
[~2017-06-22 10:50] MED LIST changes: -ALBINS/ INH
[2017-06-22 10:57] VITALS: Ht 165.1 cm; Wt 93.8 kg
[2017-06-22] MEDS ORDERED: LIDOCAINE HCL 2% VISC SOLN 20 ML UDC MT ONE (11:30)
--- NOTE | 2017-06-22 11:57 | EMERGENCY ROOM VISIT NOTE ---
ED Visit Note First contact with patient: 11:02 CHIEF COMPLAINT: Earache HISTORY OF PRESENT ILLNESS: This 41-year-old female patient presents to the emergency department and states they have had a right sided earache for the past 4-5 days. The pain is moderate, and is gradually increasing. They have noticed tenderness when she touches the ear. She denies any drainage from the ear. She also notes that she has bad teeth that "hurt all the time," states she has a dentist appointment set up in August. She denies any concerns for specific dental pain or tooth infection. The ear pain is rated as throbbing and 7/10. The patient has not been swimming recently, and she denies putting anything into her ear such as Q-tips. The patient reports a history of ear problems in the past, states she gets frequent external ear infections, most recently 3-4 months ago. The patient has not had other URI symptoms including cough, congestion, or sore throat. The patient has not had a fever. The patient has taken Tylenol and Aleve without relief of the pain. REVIEW OF SYSTEMS: A 6 system review of systems was completed with positives and pertinent negatives listed in the HPI. ALLERGIES: Reviewed in chart MEDICATIONS: Reviewed in chart PMH: Previous ear infections SOCIAL HISTORY: Lives at home. Current every day smoker. PHYSICAL EXAM: Vital Signs: Reviewed Nurse's notes, vital signs stable. GENERAL : Pleasant and cooperative, in no acute distress, non toxic in appearance, well developed, well nourished. SKIN: Normal. MOUTH: The pharynx is normal in appearance and the tonsils are not enlarged. The airway is patent. There are no exudates over the tonsils. Very poor dentition throughout with multiple broken and carious teeth. There is no gingival swelling or erythema, no tenderness about the teeth and no evidence of periapical abscess noted. EARS: The right external auditory canal is not swollen or inflamed on exam. There is a small pimple noted at the 3 o'clock position about longterm into the ear canal that is tender to touch with the ear speculum. There is positive tragal tenderness. The tympanic membrane is pearly munoz, no erythema or bulging. The left tympanic membrane is pearly munoz without erythema or bulging and the external auditory canal is clear with no tenderness to the external ear. HEART : Regular rate and rhythm without murmurs gallops or rubs. LUNGS: Clear to auscultation bilaterally without wheezes, rales or rhonchi. No dullness to percussion. No accessory muscle use. No retractions. ED COURSE: I examined the patient. Differential diagnosis includes otitis media, otitis externa, foreign body, among others. There is no convincing evidence of otitis externa or otitis media on exam. There is a small pimple within the right ear canal that correlates to patient's pain. Patient was given viscous lidocaine swish for her mouth pain with good improvement. A small amount of viscous lidocaine was also inserted into the right ear canal for comfort. Patient was encouraged to follow up with primary care provider in the next few days if her symptoms are not improving, and was also given return precautions should her symptoms worsen, she verbalized understanding. Patient was discharged home in stable condition and ambulatory. Problem List Medical Problems: (1) Acute bronchitis Status: Resolved (2) Asthma Status: Chronic (3) section Status: Resolved (4) Migraines Status: Chronic (5) MORBID OBESITY Status: Chronic (6) Pneumonitis Status: Resolved (7) Pulmonary nodule Status: Chronic Current/Historical Medications Scheduled PRN Albuterol Hfa (Ventolin Hfa), 2 PUFFS INH Q4H PRN for Wheezing Albuterol Sulf (Proventil 0.083% 2.5MG/3ML), 2.5 MG NEB QID PRN for SOB/Wheezing Allergies Coded Allergies: Aspirin (Verified Allergy, Mild, HIVES, 06/22/17) CAN TOLERATE ASA 81MG DOSE BUT DEVELOPED HIVES WITH ASA 325MG DOSE Morphine (Verified Adverse Reaction, Intermediate, ABD PAIN, 06/22/17) Vital Signs Date Time Temp Pulse Resp B/P (MAP) Pulse Ox O2 Delivery O2 Flow Rate FiO2 06/22/17 12:05 36.8 80 18 127/79 97 06/22/17 10:57 36.8 75 18 127/79 97 Room Air Medications Administered Medications (Trade) Dose Ordered Sig/Chidi Route Start Time Stop Time Status Last Admin Dose Admin Lidocaine HCl (Viscous Lidocaine 2% Soln) 20 ml NOW ONCE MT 06/22/17 11:30 06/22/17 11:31 DC 06/22/17 11:35 20 ML Departure Information Impression Primary Impression: Acute pain of right ear Dispostion Home / Self-Care Condition GOOD Referrals Jaime Jamison M.D. (PCP) Patient Instructions My [facility] Additional Instructions Use a 50:50 solution of water and peroxide 3 times a day to your right ear canal. Allow it to sit for 15-20 minutes then allowed to drain completely. Use the tissue to dry the outside of the ear, but do not insert anything into the ear canal such as a Q-tip or your finger. Tylenol 1000 mg every 8 hours as needed for pain and/or ibuprofen 800 mg every 8 hours as needed for pain. For best results, you can alternate between Tylenol and ibuprofen every 4 hours. Apply warm compresses to your ear for 20-30 minutes at a time throughout the day for comfort. Please follow-up with your primary care provider in the next 2-3 days if your symptoms are not getting any better. Keep your scheduled appointment with your dentist to have your teeth addressed. Please return to the emergency department for severe worsening pain, drainage from the ear, fevers greater than 101.5, swelling of the face or neck, difficulty swallowing or breathing, or any other concerns.
[2017-06-22 12:05] VITALS: BP 127/79; PULSE 80; TEMP 36.8; O2SAT 97
[2017-12-25] MEDS ORDERED: PRED20TA2 PO (21:10)
== END 2017-06-22 12:07 | disposition home or self-care (01) ==
LOC: C.EDB 10:51 → C.EDD 12:07
DX: L70.9 Acne, unspecified (principal); K03.81 Cracked tooth; J45.909 Unspecified asthma, uncomplicated; F17.200 Nicotine dependence, unspecified, uncomplicated; Z86.19 Personal history of other infectious and parasitic diseases

== ENCOUNTER 2017-08-28 20:35 | Emergency (ER) | payer OTHER ==
[~2017-08-28] VITALS: Ht 165.1 cm; Wt 91.8 kg
[2017-08-28 20:52] VITALS: TEMP 36.7; Ht 165.1 cm; Wt 91.8 kg
[2017-08-28] MEDS ORDERED: KETOROLAC TROMETHAMINE 60 MG/2 ML VIAL IM STA (21:16)
[2017-08-28] MEDS ORDERED: DEXAMETHASONE SOD INJ 4 MG/ML VIAL IM STA (21:16)
[2017-08-28] MEDS ORDERED: DEXAMETHASONE **PF** INJ 10 MG/ML VIAL ONE (21:24)
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
[2017-08-28 22:05] VITALS: BP 123/75; PULSE 78; O2SAT 97
== END 2017-08-28 22:06 | disposition home or self-care (01) ==
LOC: EDBD 20:35 → C.EDA 20:36
DX: M54.5 Low back pain (principal); G89.29 Other chronic pain; J45.909 Unspecified asthma, uncomplicated; Z82.0 Family history of epilepsy and other diseases of the nervous system; Z82.49 Family history of ischemic heart disease and other diseases of the circulatory system; Z83.3 Family history of diabetes mellitus; Z83.6 Family history of other diseases of the respiratory system; Z84.89 Family history of other specified conditions; Z88.5 Allergy status to narcotic agent; Z88.6 Allergy status to analgesic agent; F17.200 Nicotine dependence, unspecified, uncomplicated

== ENCOUNTER 2017-09-15 13:52 | Emergency (ER) | payer OTHER ==
[~2017-09-15] VITALS: Ht 165.1 cm; Wt 102.1 kg
[2017-09-15 13:59] VITALS: TEMP 36.5; Ht 165.1 cm; Wt 102.1 kg
--- NOTE | 2017-09-15 15:02 | EMERGENCY ROOM VISIT NOTE ---
ED Visit Note First contact with patient: 14:03 CHIEF COMPLAINT: 2 rings stuck on the left fourth finger today HISTORY OF PRESENT ILLNESS: Patient is a [id number] 41-year-old white female who presents the emergency department requesting removal of rings that are stuck on her left fourth finger. She had no difficulty getting them on, but was unable to get them off and now her finger is more swollen. She tried soap and water and a water-based lubricant, but was unsuccessful. She denies any injury to the fingers, she has no pain. REVIEW OF SYSTEMS: Musculoskeletal: No previous fractures of this hand, arthritis, or osteoporosis. PMH: Electronic medical records are reviewed and summarized as above/below. See Problem List. SOCIAL HISTORY: Patient lives at home. PHYSICAL EXAM: Vital Signs: Reviewed Nurse's notes. MUSCULOSKELETAL: The left fourth finger is mildly swollen and erythematous, she has 2 rings of the proximal phalanx, that do not move easily, but are able to be spun. Skin underneath appears intact without maceration or breakdown. EMERGENCY DEPARTMENT COURSE: Rings were removed from the finger without difficulty by emergency department mix technician. Conservative care measures were discussed. She does not have any evidence for nerve or vascular compromise. There was no trauma to indicate radiographs. Patient was happy with the outcome of the visit and was discharged home in good condition. Medication reconciliation: I attest that I have personally reviewed the patient' s current medication list. Blood pressure screening : Patient was found to have normal blood pressure on screening and does not require follow-up. Problem List Medical Problems: (1) Acute bronchitis Status: Resolved (2) Asthma Status: Chronic (3) section Status: Resolved (4) Migraines Status: Chronic (5) MORBID OBESITY Status: Chronic (6) Pneumonitis Status: Resolved (7) Pulmonary nodule Status: Chronic Current/Historical Medications Scheduled PRN Albuterol Hfa (Ventolin Hfa), 2 PUFFS INH Q4H PRN for Wheezing Albuterol Sulf (Proventil 0.083% 2.5MG/3ML), 2.5 MG NEB QID PRN for SOB/Wheezing Allergies Coded Allergies: Aspirin (Verified Allergy, Mild, HIVES, 06/22/17) CAN TOLERATE ASA 81MG DOSE BUT DEVELOPED HIVES WITH ASA 325MG DOSE Morphine (Verified Adverse Reaction, Intermediate, ABD PAIN, 06/22/17) Vital Signs Date Time Temp Pulse Resp B/P (MAP) Pulse Ox O2 Delivery O2 Flow Rate FiO2 09/15/17 15:09 69 18 115/84 100 09/15/17 13:59 36.5 85 18 140/83 97 Room Air Departure Information Impression Primary Impression: Foreign body finger Referrals Jaime Jamison M.D. (PCP) Patient Instructions My [facility] Additional Instructions Return to the ED as needed.
[2017-09-15 15:09] VITALS: BP 115/84; PULSE 69; O2SAT 100
== END 2017-09-15 15:09 | disposition home or self-care (01) ==
LOC: C.EDB 13:54 → C.EDD 15:09
DX: M79.89 Other specified soft tissue disorders (principal); W49.04XA Ring or other jewelry causing external constriction, initial encounter; J45.909 Unspecified asthma, uncomplicated; E66.01 Morbid (severe) obesity due to excess calories; Z88.6 Allergy status to analgesic agent